=== PATIENT | female | born 1965 | race Caucasian/White ===

== ENCOUNTER 2016-08-21 14:18 | Inpatient (IN) | payer SELFPAY ==
[2016-08-21] VITALS (7 sets, daily range): BP systolic 123–126; BP diastolic 83–85; PULSE 98–113; RESP 18–28; TEMP 97.1–97.7; O2SAT 91–96; Ht 165.1 cm; Wt 124.1 kg
[~2016-08-21] VITALS: Ht 165.1 cm; Wt 124.1 kg
--- OUTSIDE RECORDS SUMMARY | 2016-08-21 14:32 | XMS REPORT | Continuity of Care Document ---
Author Author [facility] Address Unknown Phone Unavailable Allergies Active Description Code Type Severity Reaction Onset Reported/Identified Relationship to Patient Clinical Status Yes doxycycline [id number] Drug Allergy Mild RASH 03/09/2016 Medications Problems Date Dx Coded Attending Type Code Diagnosis Diagnosed By 04/09/2015 Cesar Garner OT B35.6 04/09/2015 Cesar Garner OT B37.2 04/09/2015 Cesar Garner OT E04.1 04/09/2015 Cesar Garner OT E11.9 04/09/2015 Cesar Garner OT E46 04/09/2015 Cesar Garner OT E66.01 04/09/2015 Cesar Garner OT E87.1 04/09/2015 Cesar Garner OT E88.81 04/09/2015 Cesar Garner OT F10.21 04/09/2015 Cesar Garner OT F17.210 04/09/2015 Cesar Garner OT F32.9 04/09/2015 Cesar Garner OT F41.1 04/09/2015 Cesar Garner OT I10 04/09/2015 Cesar Garner OT J18.9 04/09/2015 Cesar Garner OT J84.116 04/09/2015 Cesar Garner OT J90 04/09/2015 Cesar Garner OT K59.00 04/09/2015 Cesar Garner OT K70.31 04/09/2015 Cesar Garner OT R91.8 04/09/2015 Cesar Garner OT Z23 04/09/2015 Cesar Garner OT Z68.42 04/09/2015 Cesar Garner OT Z80.1 04/09/2015 Cesar Garner OT Z80.8 05/21/2015 LynBarbie estradara L OT D68.9 05/21/2015 Riki Zenia L OT E11.9 05/21/2015 Riki Zenia L OT E66.01 05/21/2015 LynObdulioZenia L OT E87.6 05/21/2015 Riki Zenia L OT F10.21 05/21/2015 Riki Zenia L OT F32.9 05/21/2015 Riki Zenia L OT F41.9 05/21/2015 Riki Zenia L OT G47.33 05/21/2015 Obdulio Lynandra L OT I10 05/21/2015 Riki Zenia L OT I42.8 05/21/2015 Riki Zenia L OT I42.9 05/21/2015 Riki Zenia L OT I48.91 05/21/2015 Riki Zenia L OT I48.92 05/21/2015 Riki Zenia L OT I50.23 05/21/2015 Riki Zenia L OT J18.9 05/21/2015 Riki Zenia L OT J44.9 05/21/2015 Riki Zenia L OT J96.01 05/21/2015 Riki Zenia L OT K70.40 05/21/2015 Riki Zenia L OT Z68.41 05/21/2015 Barbie Lynra L OT Z79.01 01/14/2016 Roberta NARAYANAN, Gabby Reyes OT E04.1 01/14/2016 Roberta NARAYANAN, Gabby Reyes OT M54.9 01/14/2016 Gabby Granados MD OT I48.91 01/14/2016 Gabby Granados MD OT E04.1 01/14/2016 Roberta NARAYANAN, Gabby Reyes OT R10.9 01/17/2016 Gabby Granados MD OT E04.1 01/17/2016 Roberta NARAYANAN, Gabby Reyes OT E04.1 01/17/2016 Roberta NARAYANAN, Gabby Reyes OT M54.9 01/17/2016 Roberta NARAYANAN, Gabby D OT M54.9 01/17/2016 Roberta NARAYANAN, Gabby D OT I48.91 01/17/2016 Roberta NARAYANAN, Gabby D OT I48.91 01/17/2016 Roberta NARAYANAN, Gabby D OT E04.1 01/17/2016 Roberta NARAYANAN, Gabby D OT E04.1 01/17/2016 Roberta NARAYANAN, Gabby D OT R10.9 01/17/2016 Roberta NARAYANAN, Gabby D OT R10.9 01/17/2016 Roberta NARAYANAN, Gabby D OT M54.9 01/17/2016 Roberta NARAYANAN, Gabby D OT M54.9 01/17/2016 Roberta NARAYANAN, Gabby D OT R10.9 01/17/2016 Roberta NARAYANAN, Gabby D OT R10.9 01/17/2016 Roberta NARAYANAN, Gabby D OT I48.91 01/17/2016 Roberta NARAYANAN, Gabby D OT E04.1 01/17/2016 Roberta NARAYANAN, Gabby D OT I48.91 01/17/2016 Roberta NARAYANAN, Gabby D OT E04.1 01/18/2016 Roberta NARAYANAN, Gabby D OT E04.1 01/18/2016 Roberta NARAYANAN, Gabby D OT E04.1 01/22/2016 Roberta NARAYANAN, Gabby D OT M54.9 01/22/2016 Roberta NARAYANAN, Gabby D OT M54.9 01/22/2016 Roberta NARAYANAN, Gabby D OT M54.9 01/22/2016 Roberta NARAYANAN, Gabby D OT M54.9 01/22/2016 Roberta NARAYANAN, Gabby D OT M54.9 01/24/2016 Roberta NARAYANAN, Gabby D OT E04.1 01/24/2016 Roberta NARAYANAN, Gabby D OT M54.9 01/25/2016 Roberta NARAYANAN, Gabby D OT I48.91 01/25/2016 Roberta NARAYANAN, Gabby D OT I48.91 01/25/2016 Roberta NARAYANAN, Gabby D OT I48.91 01/25/2016 Roberta NARAYANAN, Gabby D OT I48.91 01/25/2016 Roberta NARAYANAN, Gabby D OT I48.91 01/25/2016 Roberta NARAYANAN, Gabby D OT I10 01/25/2016 Roberta NARAYANAN, Gabby D OT I48.91 01/25/2016 Roberta NARAYANAN, Gabby D OT E04.1 01/25/2016 Roberta NARAYANAN, Gabby D OT M54.9 01/25/2016 Roberta NARAYANAN, Gabby D OT E04.1 01/25/2016 Roberta NARAYANAN, Gabby D OT M54.9 01/26/2016 Roberta NARAYANAN, Gabby D OT E04.1 01/26/2016 Roberta NARAYANAN, Gabby D OT M54.9 01/26/2016 Roberta NARAYANAN, Gabby D OT E04.1 01/26/2016 Roberta NARAYANAN, Gabby D OT M54.9 01/27/2016 Roberta NARAYANAN, Gabby D OT E04.1 01/27/2016 Roberta NARAYANAN, Gabby D OT M54.9 01/27/2016 Roberta NARAYANAN, Gabby D OT E04.1 01/27/2016 Roberta NARAYANAN, Gabby D OT M54.9 01/27/2016 Roberta NARAYANAN, Gabby D OT E04.1 01/27/2016 Roberta NARAYANAN, Gabby D OT M54.9 01/27/2016 Roberta NARAYANAN, Gabby D OT M54.2 01/27/2016 Roberta NARAYANAN, Gabby D OT E04.1 01/27/2016 Roberta NARAYANAN, Gabby D OT E04.1 01/27/2016 Roberta NARAYANAN, Gabby D OT E04.1 01/27/2016 Roberta NARAYANAN, Gabby D OT E04.1 01/27/2016 Roberta NARAYANAN, Gabby D OT E04.1 01/27/2016 Roberta NARAYANAN, Gabby D OT E04.1 01/28/2016 Roberta NARAYANAN, Gabby D OT I10 01/28/2016 Roberta NARAYANAN, Gabby D OT I48.91 01/31/2016 Roberta NARAYANAN, Gabby D OT E04.1 01/31/2016 Roberta NARAYANAN, Gabby D OT M54.9 01/31/2016 Roberta NARAYANAN, Gabby D OT E04.1 01/31/2016 Roberta NARAYANAN, Gabby D OT M54.9 01/31/2016 Roberta NARAYANAN, Gabby D OT E04.1 01/31/2016 Roberta NARAYANAN, Gabby D OT M54.9 01/31/2016 Roberta NARAYANAN, Gabby D OT E04.1 01/31/2016 Roberta NARAYANAN, Gabby D OT M54.9 02/01/2016 Roberta NARAYANAN, Gabby D OT E04.1 02/03/2016 Roberta NARAYANAN, Gabby Reyes OT C04.1 02/03/2016 Roberta NARAYANAN, Gabby Reyes OT D30.00 02/03/2016 Roberta NARAYANAN, Gabby D OT E04.1 02/03/2016 Roberta NARAYANAN, Gabby Reyes OT I10 02/03/2016 Roberta NARAYANAN, Gabby D OT M54.9 03/09/2016 Roberta NARAYANAN, Gabby Reyes OT E04.1 03/09/2016 Roberta NARAYANAN, Gabby Reyes OT R10.9 04/26/2016 Palmer NARAYANAN, Hal Mcdonnell OT E11.9 04/26/2016 Palmer NARAYANAN, Hal Mcdonnell OT E78.2 04/26/2016 Palmer NARAYANAN, Hal Mcdonnell OT I10 04/26/2016 Palmer NARAYANAN, Hal Mcdonnell OT I48.2 04/26/2016 Palmer NARAYANAN, Hal Mcdonnell OT R06.02 04/26/2016 Palmer NARAYANAN, Hal Mcdonnell OT E11.9 04/26/2016 Palmer NARAYANAN, Hal Mcdonnell OT E78.2 04/26/2016 Palmer NARAYANAN, Hal Mcdonnell OT I10 04/26/2016 Palmer NARAYANAN, Hal Mcdonnell OT I48.2 04/26/2016 Palmer NARAYANAN, Hal Mcdonnell OT R06.02 05/02/2016 Palmer NARAYANAN, Hal Mcdonnell OT E11.9 05/02/2016 Palmer NARAYANAN, Hal Mcdonnell OT E78.2 05/02/2016 Palmer NARAYNAAN, Hal Mcdonnell OT I10 05/02/2016 Palmer NARAYANAN, Hal Mcdonnell OT I48.2 05/02/2016 Palmer NARAYANAN, Hal Mcdonnell OT R06.02 05/02/2016 Palmer NARAYANAN, Hal Mcdonnell OT E11.9 05/02/2016 Palmer NARAYANAN, Hal Mcdonnell OT E78.2 05/02/2016 Palmer NARAYANAN, Hal Mcdonnell OT I10 05/02/2016 Palmer NARAYANAN, Hal Mcdonnell OT I48.2 05/02/2016 Palmer NARAYANAN, Hal Mcdonnell OT R06.02 05/02/2016 Palmer NARAYANAN, Hal Mcdonnell OT E11.9 05/02/2016 Palmer NARAYANAN, Hal Mcdonnell OT E78.2 05/02/2016 Palmer NARAYANAN, Hal Mcdonnell OT I10 05/02/2016 Palmer NARAYANAN, Hal Mcdonnell OT I48.2 05/02/2016 Palmer NARAYANAN, Hal Mcdonnell OT R06.02 05/02/2016 Palmer NARAYANAN, Hal Mcdonnell OT E11.9 05/02/2016 Palmer NARAYANAN, Hal Mcdonnell OT E78.2 05/02/2016 Palmer NARAYANAN, Hal Mcdonnell OT I10 05/02/2016 Palmer NARAYANAN, Hal Mcdonnell OT I48.2 05/02/2016 Palmer NARAYANAN, Hal Mcdonnell OT R06.02 05/02/2016 Palmer NARAYANAN, Hal Mcdonnell OT E11.9 05/02/2016 Palmer NARAYANAN, Hal Mcdonnell OT E78.2 05/02/2016 Palmer NARAYANAN, Hal Mcdonnell OT I10 05/02/2016 Palmer NARAYANAN, Hal Mcdonnell OT I48.2 05/02/2016 Palmer NARAYANAN, Hal Mcdonnell OT R06.02 05/02/2016 Palmer NARAYANAN, Hal Mcdonnell OT E11.9 05/02/2016 Palmer NARAYANAN, Hal Mcdonnell OT E78.2 05/02/2016 Palmer NARAYANAN, aHl Mcdonnell OT I10 05/02/2016 Palmer NARAYANAN, Hal Mcdonnell OT I48.2 05/02/2016 Palmer NARAYANAN, Hal Mcdonnell OT R06.02 05/02/2016 Palmer NARAYANAN, Hal Mcdonnell OT E11.9 05/02/2016 Palmer NARAYANAN, Hal Mcdonnell OT E78.2 05/02/2016 Palmer NARAYANAN, Hal Mcdonnell OT I10 05/02/2016 Palmer NARAYANAN, Hal Mcdonnell OT I48.2 05/02/2016 Palmer NARAYANAN, Hal Mcdonnell OT R06.02 05/02/2016 Palmer NARAYANAN, Hal Mcdonnell OT E11.9 05/02/2016 Palmer NARAYANAN, Hal Mcdonnell OT E78.2 05/02/2016 Palmer NARAYANAN, Hal Mcdonnell OT I10 05/02/2016 Palmer NARAYANAN, Hal Sathya OT I48.2 05/02/2016 Palmer NARAYANAN, Hal Mcdonnell OT R06.02 05/02/2016 Palmer NARAYANAN, Hal Mcdonnell OT E11.9 05/02/2016 Palmer NARAYANAN, Hal Mcdonnell OT E78.2 05/02/2016 Palmer NARAYANAN, Hal Mcdonnell OT I10 05/02/2016 Palmer NARAYANAN, Hal Mcdonnell OT I48.2 05/02/2016 Palmer NARAYANAN, Hal Mcdonnell OT R06.02 05/02/2016 Palmer NARAYANAN, Hal Mcdonnell OT E11.9 05/02/2016 Palmer NARAYANAN, Hal Mcdonnell OT E78.2 05/02/2016 Palmer NARAYANAN, Hal Mcdonnell OT I10 05/02/2016 Palmer NARAYANAN, Hal Mcdonnell OT I48.2 05/02/2016 Palmer NARAYANAN, Hal Mcdonnell OT R06.02 05/04/2016 Palmer NARAYANAN, Hal Mcdonnell OT R94.39 05/04/2016 Palmer NARAYANAN, Hal Mcdonnell OT R94.39 05/04/2016 Chandu NARAYANAN, Manuel Huddleston OT R94.39 05/04/2016 Chandu NARAYANAN, Manuel L OT R94.39 05/05/2016 Palmer NARAYANAN, Hal Mcdonnell OT E11.9 05/05/2016 Palmer NARAYANAN, Hal Mcdonnell OT E78.2 05/05/2016 Palmer NARAYANAN, Hal Mcdonnell OT I10 05/05/2016 Palmer NARAYANAN, Hal Mcdonnell OT I48.2 05/05/2016 Palmer NARAYANAN, Hal Mcdonnell OT R06.02 05/17/2016 Chandu NARAYANAN, Manuel Huddleston OT R94.39 05/17/2016 Chandu NARAYANAN, Manuel L OT R94.39 05/23/2016 Chandu NARAYANAN, Manuel L OT R94.39 05/23/2016 Cahndu NARAYANAN, Manuel L OT R94.39 05/23/2016 Chandu NARAYANAN, Manuel L OT R94.39 05/23/2016 Chandu NARAYANAN, Manuel L OT R94.39 05/23/2016 Chandu NARAYANAN, Manuel L OT R94.39 05/23/2016 Chandu NARAYANAN, Manuel L OT E11.9 05/23/2016 Chandu NARAYANAN, Manuel Huddleston OT E66.9 05/23/2016 Chandu NARAYANAN, Manuel Huddleston OT G47.33 05/23/2016 Chandu NARAYANAN, Manuel Huddleston OT I42.9 05/23/2016 Chandu NARAYANAN, Manuel L OT I48.91 05/23/2016 Chandu NARAYANAN, Manuel Huddleston OT I50.9 05/23/2016 Chandu NARAYANAN, Manuel Huddleston OT R94.39 Procedures Results Test Result Range B-TYPE NATRIURETIC PEPTIDE - 03/31/15 04:25 B-TYPE NATRIURETIC PEPTIDE 445 pg/mL < 100 CALCITONIN - 03/31/15 04:25 CALCITONIN RESULT <2 pg/mL <6 AEROBIC ANAER CULTURE W/GRAM - 04/01/15 03:08 Microbiology MAGNESIUM - 04/01/15 11:09 MAGNESIUM 1.7 mg/dL 1.6-2.5 MAGNESIUM - 04/02/15 04:45 MAGNESIUM 1.9 mg/dL 1.6-2.5 THYROGLOBULIN (REFLEXIVE) - 04/02/15 13:20 THYROGLOBULIN AUTO ANTIBODY <0.9 IU/mL 0.0-4.0 THYROGLOBULIN 128.9 ng/mL 1.2-35.0 IMMUNOGLOBULINS G,A,M - 04/02/15 13:20 IMMUNOGLOBULIN G 1990 mg/dL 700-1600 IMMUNOGLOBULIN A 384 mg/dL 68-378 IMMUNOGLOBULIN M 82 mg/dL 60-263 MAGNESIUM - 04/03/15 04:24 MAGNESIUM 1.9 mg/dL 1.6-2.5 PHOSPHORUS - 04/03/15 04:24 PHOSPHORUS 3.6 mg/dL 2.5-4.9 FUNGAL CULTURE - 04/03/15 16:10 Microbiology AEROBIC CULTURE W/GRAM STAIN - 04/03/15 20:49 Microbiology POTASSIUM - 04/04/15 01:18 POTASSIUM 5.3 mmol/L 3.5-5.1 GLUCOSE POINT OF CARE TESTING - 04/04/15 11:57 GLUCOSE POINT OF CARE TESTING 221 mg/dL 70-99 PROT ELECT UR 24H IMMFX RFX - 04/04/15 23:00 PROTEIN, URINE mg/24h 186 mg/24h () INTERPRETATION SEE BELOW () STEPHANIE, URINE, IF INDICATED SEE BELOW () MAGNESIUM - 04/05/15 04:15 MAGNESIUM 2.0 mg/dL 1.6-2.5 BASIC METABOLIC GROUP - 04/05/15 13:48 SODIUM 131 mmol/L 136-145 POTASSIUM 5.0 mmol/L 3.5-5.1 CHLORIDE 100 mmol/L 96-111 CARBON DIOXIDE 26 mmol/L 20-30 ANION GAP 10 6-18 BLOOD UREA NITROGEN 19 mg/dL 6-24 CREATININE 0.62 mg/dL 0.41-0.96 BUN/CREATININE RATIO 31 6-25 GLOMERULAR FILTRATION RATE 107 GLUCOSE 190 mg/dL 70-99 CALCIUM 8.2 mg/dL 8.5-10.1 GLUCOSE POINT OF CARE TESTING - 04/06/15 21:13 GLUCOSE POINT OF CARE TESTING 141 mg/dL 70-99 MAGNESIUM - 04/07/15 05:35 MAGNESIUM 1.9 mg/dL 1.6-2.5 MAGNESIUM - 04/08/15 03:30 MAGNESIUM 1.9 mg/dL 1.6-2.5 DIGOXIN - 05/14/15 08:17 DIGOXIN 0.2 ng/mL 0.9-2.0 PROTIME - 05/14/15 08:17 PROTHROMBIN TIME (PT) > 200.0 sec 9.7- 11.6 INR > 18.0 0.9-1.1 INFLUENZA A AND B ANTIGEN - 05/14/15 13:10 Microbiology BASIC METABOLIC GROUP - 05/15/15 03:49 SODIUM 134 mmol/L 136-145 POTASSIUM 3.2 mmol/L 3.5-5.1 CHLORIDE 99 mmol/L 96-111 CARBON DIOXIDE 30 mmol/L 20-30 ANION GAP 8 6-18 BLOOD UREA NITROGEN 13 mg/dL 6-24 CREATININE 0.31 mg/dL 0.41-0.96 BUN/CREATININE RATIO 42 6-25 GLOMERULAR FILTRATION RATE 133 GLUCOSE 176 mg/dL 70-99 CALCIUM 8.2 mg/dL 8.5-10.1 PROTIME - 05/15/15 03:49 PROTHROMBIN TIME (PT) 20.0 sec 9.7-11.6 INR 2.1 0.9-1.1 POTASSIUM - 05/15/15 16:49 POTASSIUM 4.1 mmol/L 3.5-5.1 TROPONIN I - 05/16/15 03:53 TROPONIN I < 0.010 ng/mL <0.030 MAGNESIUM - 05/17/15 03:55 MAGNESIUM 1.8 mg/dL 1.6-2.5 POTASSIUM - 05/17/15 19:31 POTASSIUM 3.9 mmol/L 3.5-5.1 CBC Diff reflex to Manual Diff - 05/18/15 04:15 WBC 3.6 1000/uL 3.7-11.1 RBC 5.67 mil/uL 4.11-5.63 HEMOGLOBIN 13.9 g/dl 11.9-16.3 HEMATOCRIT 44.8 % 37.0-47.7 PLATELET COUNT 176 1000/uL 150-400 MCV 79 fl 81-97 MCH 24.5 pg 26.7-33.1 MCHC 31.0 g/dL 31.1-35.3 RDW 19.8 % 12.3-15.9 MPV 9.4 fl ABSOLUTE NEUTROPHIL 1.7 1000/uL 1.7-7.1 ABSOLUTE LYMPHOCYTE 1.5 1000/uL 1.1-3.7 ABSOLUTE MONOCYTE 0.3 1000/uL 0.3-0.9 ABSOLUTE EOSINOPHIL 0.1 1000/uL 0.0-0.5 ABSOLUTE BASOPHIL 0.0 1000/uL 0.0-0.1 NEUTROPHILS 48 % LYMPHOCYTE 41 % MONOCYTE 9 % EOSINOPHIL 2 % BASOPHIL 1 % VERIFY DIFF Auto diff B-TYPE NATRIURETIC PEPTIDE - 05/18/15 04:15 B-TYPE NATRIURETIC PEPTIDE 335 pg/mL < 100 MAGNESIUM - 05/19/15 04:35 MAGNESIUM 2.1 mg/dL 1.6-2.5 B-TYPE NATRIURETIC PEPTIDE - 05/19/15 04:35 B-TYPE NATRIURETIC PEPTIDE 363 pg/mL < 100 MAGNESIUM - 05/20/15 05:10 MAGNESIUM 1.9 mg/dL 1.6-2.5 PROTIME - 05/21/15 04:37 PROTHROMBIN TIME (PT) 24.3 sec 9.7-11.6 INR 2.6 0.9-1.1 CALCITONIN - 01/31/16 09:37 CALCITONIN RESULT <2 pg/mL <6 URINALYSIS RFLX MICRO CULT UA - 03/09/16 22:38 COLLECTION TYPE CLEAN CATCH APPEARANCE Clear CLEAR COLOR Yellow PH, URINE 5.0 5.0-8.0 SPECIFIC GRAVITY, URINE 1.025 <1.030 GLUCOSE, URINE Negative mg/dL Negative BLOOD, URINE Small Negative KETONES, URINE Negative mg/dL Negative PROTEIN, UA QUALITATIVE Negative mg/dL Negative BILIRUBIN, URINE Negative Negative UROBILINOGEN, URINE 2.0 mg/dL <2.0 LEUKOCYTE ESTERASE, URINE Negative Negative NITRITE, URINE Negative Negative WBC, URINE 3-5 /hpf 0-5 RBC, URINE 0-2 /hpf 0-5 BACTERIA, URINE None seen /hpf None seen SQUAMOUS CELLS 21-30 /lpf 0-5 MUCUS THREADS, URINE 1+ /lpf ADD URINE CULTURE NO D-DIMER - 03/09/16 20:40 D-DIMER 0.29 mg/L 0.00-0.49 HGB A1C - 04/24/16 11:56 % HGB A1C 8.2 % 4.0-5.6 ESTIMATED AVERAGE GLUCOSE 189 mg/dL BASIC METABOLIC GROUP - 05/23/16 07:25 SODIUM 136 mmol/L 136-145 POTASSIUM 3.9 mmol/L 3.5-5.1 CHLORIDE 106 mmol/L 96-111 CARBON DIOXIDE 23 mmol/L 20-30 ANION GAP 11 6-18 BLOOD UREA NITROGEN 16 mg/dL 6-24 CREATININE 0.43 mg/dL 0.41-0.96 BUN/CREATININE RATIO 37 6-25 GLOMERULAR FILTRATION RATE 119 GLUCOSE 191 mg/dL 70-99 CALCIUM 8.9 mg/dL 8.3-10.1 Encounters ACCT No. Visit Date/Time Discharge Status Pt. Type Provider Facility Loc./Unit Complaint [id number] 05/23/2016 06:12:00 2015 12:10:00 DIS Outpatient Chandu NARAYANAN, Manuel Huddleston KCCATH ABNORMAL RESULT OF OTHER CARDIOVASCULAR FUNCTION [id number] 05/02/2016 10:25:00 2015 16:24:00 DIS Outpatient Palmer NARAYANAN, Hal Mcdonnell KCNUC TYPE 2 DIABETES MELLITUS WITHOUT COMPLICATIONS [id number] 03/09/2016 19:22:00 2015 23:03:00 DIS Emergency Renetta NARAYANAN, Sathya Crow KCMONIKA NECK PAIN [id number] 01/27/2016 13:25:00 2015 15:57:00 DIS Outpatient Gabby Granados MDUS NONTOXIC SINGLE THYROID NODULE/L THYROID [id number] 01/25/2016 08:21:00 2015 11:36:00 DIS Outpatient Gabby Granados MDUS UNSPECIFIED ATRIAL FIBRILLATION [id number] 05/14/2015 11:52:00 2014 17:51:00 DIS Inpatient Zenia Lyn KC2B DIFF BREATHING [id number] 03/30/2015 12:52:00 2014 15:45:00 DIS Inpatient Cesar Garner KC2B LT THYROIDMESS PLEURAL EFFUSION ACITIS [id number] 08/17/2016 08:47:11 Document Registration [id number] 07/03/2016 10:10:00 PEN Preadmit Palmer NARAYANAN, Hal Mcdonnell [facility] [id number] 05/19/2016 08:39:00 PEN Preadmit Palmer NARAYANAN, Hal Mcdonnell [facility] [id number] 04/24/2016 10:18:00 ACT Outpatient Palmer NARAYANAN, Hal Mcdonnell [facility] [id number] 04/13/2016 10:28:00 ACT Outpatient Roberta NARAYANAN, Gabby Reyes [facility] [id number] 02/15/2016 09:30:00 PEN Preadmit Roberta NARAYANAN, Gabby NICHOLSUC UNSPECIFIED ABDOMINAL PAIN [id number] 01/31/2016 07:02:00 ACT Outpatient Roberta NARAYANAN, Gabby OWENI DORSALGIA,NONTOXIC SINGLE THYROID NODULE [id number] 01/22/2016 08:35:00 ACT Outpatient Roberta NARAYANAN, Gabby OWENI DORSALGIA, UNSPECIFIED [id number] 01/20/2016 08:00:00 PEN Preadmit Roberta NARAYANAN, Gabby QUEENCT NONTOXIC SINGLE THYROID NODULE [id number] 01/13/2016 16:31:00 ACT Outpatient Roberta NARAYANAN, Gabby Reyes [facility] [id number] 06/15/2015 14:15:00 PEN Preadmit Chandu NARAYANAN, Manuel Huddleston [facility]
[2016-08-21] MEDS ORDERED: CARV12.52 PO (14:48)
[2016-08-21] MEDS ORDERED: METF500T4 PO (14:48)
[2016-08-21] MEDS ORDERED: LISI-621 PO (14:48)
[2016-08-21] MEDS ORDERED: WARF3TAB6 PO (14:48)
[2016-08-21] MEDS ORDERED: DIGO125T88 PO (14:48)
[2016-08-21] MEDS ORDERED: HYDR-4246 PO (14:48)
[2016-08-21] MEDS ORDERED: NITR0.4T39 SL (14:48)
[2016-08-21] MEDS: NORMAL SALINE 1,000 ML IV SCH (15:02)
[2016-08-21] MEDS ORDERED: ACETAMINOPHEN 325 MG TABLET PO PRN (15:15)
[2016-08-21] MEDS ORDERED: ONDANSETRON 4mg/2ml INJECTION IV PRN (15:15)
[2016-08-21] MEDS ORDERED: MILK OF MAGNESIA 30 ML SUSP PO PRN (15:15)
[2016-08-21] MEDS ORDERED: NITROGLYCERIN 0.4 MG SUBLINGUAL TABLET SL PRN (15:30)
[2016-08-21 15:58] LABS: BASOPHILS % (AUTO) 0.3 % (0-2); EOSINOPHILS # (AUTO) 0.1 T/MM3 (0-0.5); EOSINOPHILS % (AUTO) 1.4 % (0-4); HCT - HEMATOCRIT 45.9 % (36-46); HGB - HEMOGLOBIN 15.4 GM/DL (12-16); IMMATURE GRANULOCYTE # (AUTO) 0.01 T/MM3 (0.00-0.03); IMMATURE GRANULOCYTE % (AUTO) 0.1 % (0.0-0.5); LYMPHOCYTES # (AUTO) 2.7 T/MM3 (1-4.8); LYMPHOCYTES % (AUTO) 27.5 % (23-45); MEAN CORPUSCULAR HGB 29.8 UUG (26-34); MEAN CORPUSCULAR HGB CONC(MCHC 33.6 GM/DL (31-37); MEAN PLATELET VOLUME 12.2 UM3 (9.4-12.4); MONOCYTES # (AUTO) 0.5 T/MM3 (0-0.8); MONOCYTES % (AUTO) 5.2 % (0-9.0); NEUTROPHILS #(AUTO)-ABSOLUTE 6.4 T/MM3 (1.8-7.7); NEUTROPHILS % (AUTO) 65.5 % (33-66); RED BLOOD COUNT 5.16 M/MM3 (4.00-5.20); WBC - WHITE BLOOD COUNT 9.7 T/MM3 (4.5-11.0)
[2016-08-21 16:09] LABS: ALBUMIN 3.9 G/DL (3.5-5.0); ALBUMIN/GLOBULIN RATIO 1.1 RATIO (1.1-2.2); ALKALINE PHOSPHATASE 228 U/L (38-126); ALT (SGPT) 47 U/L (9-52); ANION GAP 14 MEQ/L (5-15); AST (SGOT) 36 U/L (14-36); BUN/CREATININE RATIO 24 RATIO (6-26); CALCIUM 9.4 MG/DL (8.4-10.2); CHLORIDE 107 MEQ/L (98-107); CO2 - CARBON DIOXIDE 21 MEQ/L (22-30); CREATININE 0.7 MG/DL (0.7-1.2); GLOMERULAR FILTRATION RATE 89; GLUCOSE 271 MG/DL (65-110); POTASSIUM 4.6 MEQ/L (3.6-5); SODIUM 142 MEQ/L (134-144); TOTAL PROTEIN 7.5 G/DL (6.3-8.2)
--- NOTE | 2016-08-21 16:38 | HPPDOC ---
HPI - Adult Date DATE: 08/21/16 TIME: 15:57 General Chief Complaint: panic History of Present Illness This is a 51-year-old female direct admitted from the office of Dr. Sainz, for symptomatic hyperthyroidism. She has been having atrial fibrillation with palpitation on and off for several weeks. No overt chest pain in a few days now. She feels jittery panicky and tearful. She thinks she's had some swelling of her feet as well. She believes that she has been taking her medications appropriately. Dr. Sainz has given the information that she has a thyroid mass that shows multi-nodular lesions with hyper vascularity today. She has a nonexistent TSH the free T4 within normal limits and a high free T3. She has been asymptomatic atrial fibrillation and ejection fraction in the 30s. In addition to this likely thyrotoxicosis there is some questionable lung mass and he is requesting CT. He has asked for Dr. Noguera in surgery and for Dr. Lehman in endocrinology to consider consultation Past Medical History Past Medical History Patient's Medical History: (1) Thyroid nodule, hot (2) Atrial fibrillation with rapid ventricular response Surgical History Patient's Surgical History: Thyroglossal duct cyst removal tonsils hysterectomy Current Medications Home Meds Reported Medications Hydrocodone/Acetaminophen ([place] 5-325 Tablet) 5-325 Tablet, 1 TAB PO Q4HPRN, TAB 08/21/16 Nitroglycerin (Nitroglycerin) 0.4 Mg Tab.subl, 0.4 MG SL Y for CHEST TIGHTNESS, TAB 08/21/16 Lisinopril (Lisinopril) 20 Mg Tablet, 20 MG PO DAILY for HYPERTENSION, TAB 08/21/16 Carvedilol (Carvedilol) 12.5 Mg Tablet, 1 TAB PO BIDWM, TAB BEST WITH FOOD. 08/21/16 Digoxin (Digoxin) 125 Mcg Tablet, 1 TAB PO DAILY, TAB 08/21/16 Warfarin Sodium (Warfarin Sodium) 3 Mg Tablet, 1 TAB PO DAILY, #30 TAB 5 Refills 08/21/16 Metformin HCl (Metformin HCl) 500 Mg Tablet, 500 MG PO BIDWM, TAB Take one tablet, by mouth, 2 times a day with Meals. 08/21/16 Family History Family History: Mother had diabetes hypertension and of stroke father had hypertension and of lung cancer Social History Smoking Status: Former smoker Substance Use Type: does not use Alcohol Intake: former alcohol drinker Last Drink: unknown Marital Status: Advance Directives: Yes DPOA for Healthcare Only (Dawn Springer) Review of Systems Constitutional: REPORTS: difficulty falling asleep ENMT Sinuses: FOUND: congestion Mouth/Throat: REPORTS: change in swallowing, DENIES: sore throat Cardiovascular dyspnea on exertion, DENIES: chest pain Rhythm/Rate: palpitations Pulmonary Respiratory: DENIES: cough, sputum GI Lower Abdomen: DENIES: blood in stool, melena Integumentary Skin: DENIES: infections, lesion, ulcers Physical Exam General General Nourishment: obese General Body Habitus: disheveled Vital Signs Vital Signs Date Time Temp Pulse Resp B/P Pulse Ox O2 Delivery O2 Flow Rate FiO2 08/21/16 14:54 97.1 113 22 126/85 96 Room Air Height (Feet): 5 Height (Inches): 5.00 Eyes Brief: FOUND: EOMI, PERRL, NOT FOUND: scleral icterus Neck Brief: FOUND: thyromegaly, NOT FOUND: JVD, adenopathy, nuchal rigidity Comments Thyroid fullness noted slightly more significant on left than right Respiratory Brief: FOUND: clear all bee, equal bilaterally, NOT FOUND: rales , wheezes Cardiovascular (brief) Cardiac Brief: FOUND: regular rhythm Comments Irregularly irregular tachycardic proximately 120s Abdomen (brief) Abdominal Brief: FOUND: BS normo active x4, soft Integumentary (brief) Integumentary Brief: FOUND: dry, warm Comments Noted flush may be recent day in the sun Neurologic RN Documented GCS Eye Opening: Verbal: Motor: Total: Psychiatric (brief) FOUND: alert, oriented Comments Anxious and hypervigilant Psychiatric Psychiatric General: FOUND: affect, crying, mood Attitude: FOUND: cooperative Laboratory I've ordered a CMP CBC INR PT free T4 free T3 and TSH. These are pending Laboratory Tests Test 08/21/16 15:48 EKG Ordering an EKG now Radiology Radiology noting multiple nodules on ultrasound thyroid I have ordered CT of the chest without contrast as per Dr. Sainz's request Assessment & Plan Problems: (1) Thyrotoxicosis Status: Acute Assessment & Plan: Patient is on 25 mg of carvedilol b.i.d. Do not see methimazole will have to verify what dosing she has been at. (2) Atrial fibrillation with rapid ventricular response Status: Acute Assessment & Plan: She is on warfarin and we will likely have to hold this for any likely surgery. INR is pending. We need better rate control and some symptomatic relief (3) Hypertension Qualifiers: Hypertension type: secondary to endocrine disorders Qualified Codes: I15.2 - Hypertension secondary to endocrine disorders (4) Thyroid nodule Assessment & Plan: Would appreciate Dr. Noguera's input on surgical management this mass. I'm uncertain if Dr. Lehman already knows this patient through Dr. Sainz. Assessment This patient has significant clinical signs thyrotoxicosis. Will resume beta raymond and likely double the carvedilol at least for now. Code Status Full Code Hospital Course Summary Disclaimer The hospital course summary below is not to be considered part of the above Progress Note. SAL KENDALL MD Aug 21, 2016 16:03
--- NOTE | 2016-08-21 16:48 | DI ---
Indication: ITS.REASON: Thyroid mass known, ? lung masses PROCEDURE: CT CHEST W/O CONTRAST: Encounter: Initial Comparison: None Technique: Axial CT images were performed through the chest without intravenous contrast. Coronal and sagittal two-dimensional reformats. Automated Exposure Control and Iterative Reconstruction dose reducing techniques were utilized. Findings: Lung window review demonstrates scattered solid nodular or semisolid foci in the right lung; the largest peripherally is pleural-based measuring 14.8 x 8.6 mm in the anterior aspect of the right upper lobe on axial image 30 of 86. Additional smaller nodular foci are seen, including a right upper lobe prehilar nodule of 5.6 mm on axial image 32 of 86. Additional somewhat more linear fibrotic-appearing regions are seen. There is mild mediastinal lymphadenopathy. Precarinal lymph node short axis dimension of 15.2 mm and several small left prevascular lymph nodes are seen. Subcarinal lymph node short axis dimension of 19.6 mm. No definite hilar contour abnormality. Heart and pericardium demonstrates no pericardial effusion. Mild coronary artery calcification. Minimal aortic atherosclerosis. Significant enlargement of the left thyroidal lobe. Lack of contrast limits its assessment. Pleural spaces are clear. Upper abdomen demonstrates no adrenal mass effect. Bone window review demonstrates degenerative spondylitis but no aggressive abnormality. Impression: 1. Multiple nodular foci in the right lung. If there are any prior studies for direct comparison, this would be of benefit. In the absence of such, follow-up in three months recommended if a high risk patient. 2. Mild mediastinal lymphadenopathy. 3. Thyromegaly in regards to the left thyroidal lobe. This could be on the basis of mass effect or diffuse asymmetric enlargement. 4. Coronary artery disease and aortic atherosclerosis. .
[2016-08-21 16:52] LABS: INR 1.28 (0.76-1.04); PTT 29.3 SEC (24-36)
[2016-08-21] MEDS: CARVEDILOL 12.5 MG TABLET PO SCH (17:20)
[2016-08-21] MEDS: LORAZEPAM 2 MG/ML INJECTION IV PRN (17:24)
--- NOTE | 2016-08-21 18:19 | CONSF ---
DATE OF CONSULT 08/21/2016 REASON FOR CONSULTATION Thyrotoxicosis. Mrs. Springer is a 51-year-old female admitted directly from the office of Dr. Sainz for uncontrolled atrial fibrillation and heart failure with an ejection fraction around 30%. She has a history of atrial fibrillation for about a year and a half and has been treated off and on with various beta-blockers including atenolol, metoprolol and most recently carvedilol 12.5 mg b.i.d.. She is also anticoagulated. For the past two weeks her palpitations have worsened as her pedal edema has also gotten worse and she has had more dizziness. She has a history of hyperthyroidism going back to at least 09/24/2014 when her TSH was 0.010. It remained at this undetectable level again on 12/10/2014 and 03/30/2015 at which time her free T4 was elevated at 1.77. On 01/31/2016 the TSH was 0.03 with free T4 of 1.72. Most recently TSH on 08/09/2016 was less than 0.02 with free T4 2.01 and free T3 quite elevated at 9.50. Her thyrotropin receptor antibody was undetectable. A left thyroid mass has also been followed since 03/29/2015 when it measured 3.6 x 2.4 cm. On 03/31/2015 at the time of fine- needle aspiration biopsy it was measured at 4.5 x 3.1 x 2.6 cm. The biopsy showed atypia of uncertain significance. On 01/27/2016 it measured 3.1 x 4.8 x 3.2 cm and repeat fine-needle aspiration biopsy showed an adenomatous nodule with cystic degeneration and no malignant cells were seen. The patient has noted palpitations, dyspnea, heat intolerance, frequent bowel movements, anxiety, tremor and some tightness in her neck. She reports significant hair loss and fatigue. She has had trouble concentrating with short-term memory as well. ALLERGIES None known. PAST MEDICAL HISTORY Remarkable for type 2 diabetes mellitus treated with metformin which is currently being held. Atrial fibrillation. Congestive heart failure. History of elevated bilirubin. Lung mass with benign biopsies. Left thyroid mass. Status post removal of thyroglossal duct cyst. Tonsillectomy. . Hysterectomy. FAMILY HISTORY Negative for thyroid cancer. Positive for diabetes, hypertension, stroke and lung cancer. SOCIAL HISTORY Remarkable for heavy ingestion of alcohol in the past but not currently. She also is a former smoker. REVIEW OF SYSTEMS Positive for mild dysphagia. Negative for cough or sputum. Otherwise negative except as mentioned in History of Present Illness. PHYSICAL EXAM VITAL SIGNS: Temperature 97.1, blood pressure 126/85, pulse 113, respirations 22 at the time of admission. Height 65 inches, weight 126 kg. GENERAL: Well-developed, obese, anxious female sitting up in bed. EYES: PERRL. NECK: Enlarged left lobe lying quite low in the neck, partly substernal but rising with swallowing. There is no tenderness or bruit. LUNGS: Clear. HEART: Irregular rapid rhythm. ABDOMEN: Normal bowel sounds. EXTREMITIES: Trace edema. SKIN: Warm and dry. NEUROLOGIC: Grossly normal. PSYCHIATRIC: Alert, oriented. Anxious about being in the hospital as this was unexpected today. She comes close to crying at times. LABORATORY Glucose 271. TSH less than 0.02. Free T4 and T3 are pending. Bilirubin 1.2. ALT 47. ASSESSMENT 1. Thyrotoxicosis. With the rapid atrial fibrillation and history of low ejection fraction, the patient should be started immediately on PTU to obtain rapid blocking of iodine uptake as well as peripheral conversion of T4 to T3 to bring her T3 toxicosis under control as quickly as possible. Diagnostic testing to determine her cause of hyperthyroidism via radioactive iodine uptake and scan will need to be postponed to a later time. Her beta raymond should be dosed at a level to control her rate until her thyroid hormone level falls enough that it may be able to be tapered, although it will probably be continued to help with her outcome of heart failure until the atrial fibrillation resolves. Longer-term the patient can later be switched from PTU to methimazole which is slightly safer. 2. Large thyroid nodule. The problem with a nodule greater than 4 cm in size is that the biopsies that have been taken may have missed potential malignancy within that size nodule. It should therefore be removed as soon as reasonably safe after controlling her atrial fibrillation through better control of her hyperthyroidism. 3. Type 2 diabetes mellitus with hyperglycemia. She will need to remain off of metformin since this is contraindicated in congestive heart failure that requires pharmacologic intervention. Since her renal function is good with a creatinine of 0.7 the use of a short-acting sulfonylurea is possible. 4. Atrial fibrillation. The patient's heart rate has dropped below 100 as she remains a little longer in the hospital. I would prefer to not raise her dose of carvedilol higher unless it is really necessary as she does have dizziness which may be exacerbated. 5. Hypertension, fair control. 6. Congestive heart failure. This should improve as her atrial fibrillation is brought under better control. 7. Lung mass apparently benign from past biopsies. I will defer this to Dr. Sainz. RECOMMENDATIONS Start PTU 100 mg q.6h. and glimepiride 2 mg q.a.m. with first dose for supper now. Monitor glucose fasting and two hours postprandially. We will follow her heart rate and rhythm closely over the next 24 hours. I have spoken with the patient regarding ultimately having the left thyroid nodule removed because of its large size and uncertainty even after two negative biopsies whether it may harbor a malignancy. Thank you very much for asking me to assist in the care of this nice lady. I will follow her along with you during her hospital stay. VALENTÍN
[2016-08-21] MEDS: PROPYLTHIOURACIL 50 MG TABLET PO SCH ×2 (18:25→23:14)
[2016-08-21] MEDS: GLIMEPIRIDE 2 MG TABLET PO SCH (18:25)
[2016-08-21] MEDS: HYDROCODONE/APAP 5 mg/325 mg TABLET PO PRN (19:55)
[2016-08-21] MEDS: DOCUSATE SODIUM 100 MG CAPSULE PO SCH (19:55)
[2016-08-22] VITALS (8 sets, daily range): BP systolic 109–128; BP diastolic 65–84; PULSE 93–113; RESP 20–26; TEMP 96.2–97.8; O2SAT 93–96
[2016-08-22] MEDS: LORAZEPAM 2 MG/ML INJECTION IV PRN ×3 (01:24→19:53)
[2016-08-22] MEDS: NORMAL SALINE 1,000 ML IV SCH (02:13)
[2016-08-22] MEDS: PROPYLTHIOURACIL 50 MG TABLET PO SCH ×4 (06:03→23:47)
[2016-08-22] MEDS: DIGOXIN 125 MCG TABLET PO SCH (08:15)
[2016-08-22] MEDS: GLIMEPIRIDE 2 MG TABLET PO SCH (08:15)
[2016-08-22] MEDS: DOCUSATE SODIUM 100 MG CAPSULE PO SCH ×2 (08:15→21:46)
[2016-08-22] MEDS: LISINOPRIL 20 MG TABLET PO SCH (08:15)
[2016-08-22] MEDS: CARVEDILOL 12.5 MG TABLET PO SCH ×2 (08:16→18:14)
--- NOTE | 2016-08-22 08:32 | PNPDOC ---
Subjective Date DATE: 08/22/16 TIME: 08:21 Subjective Feels a little better, but still short of breath. Also still feels a bit dizzy. Started PTU and glimepiride without adverse effects. Has IV saline infusing at 100 ml/hr. Objective Vital Signs Vital Signs Vital Signs 08/21/16 08/21/16 08/21/16 08/22/16 21:21 23:27 23:46 02:05 Temp 97.7 Pulse 102 101 106 96 Resp 28 B/P 123/83 Pulse Ox 91 92 92 O2 Delivery Spontaneous/Timed Bi-pap Spontaneous/Timed Spontaneous/Timed FiO2 21 08/22/16 08/22/16 08/22/16 08/22/16 03:36 03:53 05:15 07:31 Temp 96.2 Pulse 90 92 109 Resp 23 24 B/P 115/84 Pulse Ox 95 O2 Delivery Bi-pap Spontaneous/Timed Spontaneous/Timed Room Air FiO2 08/22/16 08:15 Pulse 111 Height (Feet): 5 Height (Inches): 5.00 Weight (Kilograms): 126.500 General General Nourishment: Well Nourished, Well Developed, Obese, Adult Eyes (Brief) Eyes Brief: FOUND: PERRL Neck (Brief) Neck Brief: FOUND: thyromegaly, NOT FOUND: carotid bruits, tenderness Respiratory (Brief) Respiratory Brief: FOUND clear all bee, FOUND equal bilaterally Cardiovascular (Brief) Cardiac Brief: FOUND: pedal edema, regular rate, NOT FOUND: regular rhythm Abdomen (Brief) Abdominal Brief: FOUND: BS normo active x4 Integumentary(Brief) Integumentary Brief: FOUND: dry, warm Neurologic(Brief) Neurological Brief: FOUND: tremor Comments Mild tremor. Psychiatric(Brief) Psychiatric Brief: FOUND: alert, attentive, normal affect, oriented Laboratory Laboratory Laboratory Tests Test 08/21/16 15:48 08/21/16 16:38 08/21/16 17:38 08/21/16 21:04 Anion Gap 14MEQ/L (5-15) BUN/Creatinine Ratio 24RATIO (6-26) Blood Urea Nitrogen 17.0MG/DL (7-17) Calcium Level 9.4MG/DL (8.4-10.2) Calculated Osmolality 285MOSM/KG (261-280) Carbon Dioxide Level 21MEQ/L (22-30) Chloride Level 107MEQ/L (98-107) Creatinine 0.7MG/DL (0.7-1.2) Free Triiodothyronine Pending Glomerular Filtration Rate Calc 89 Glucose Level 271MG/DL (65-110) Potassium Level 4.6MEQ/L (3.6-5) Sodium Level 142MEQ/L (134-144) Thyroid Stimulating Hormone (TSH) < 0.02MIU/L (0.47-4.68) Free Thyroxine Pending Glucometer 227mg/dL (65-110) 248mg/dL (65-110) Laboratory Tests Test 08/21/16 15:48 08/21/16 16:09 08/21/16 16:38 08/21/16 17:38 White Blood Count 9.7T/MM3 (4.5-11.0) Red Blood Count 5.16M/MM3 (4.00-5.20) Hemoglobin 15.4GM/DL (12-16) Hematocrit 45.9% (36-46) Mean Corpuscular Volume 89.0UM3 (80-100) Mean Corpuscular Hemoglobin 29.8UUG (26-34) Mean Corpuscular Hemoglobin Concent 33.6GM/DL (31-37) RDW Standard Deviation 41.5FL (36.9-50.2) Platelet Count 156T/MM3 (130-400) Mean Platelet Volume 12.2UM3 (9.4-12.4) Immature Granulocyte % (Auto) 0.1% (0.0-0.5) Neutrophils (%) (Auto) 65.5% (33-66) Lymphocytes (%) (Auto) 27.5% (23-45) Monocytes (%) (Auto) 5.2% (0-9.0) Eosinophils (%) (Auto) 1.4% (0-4) Basophils (%) (Auto) 0.3% (0-2) Absolute Immature Granulocyte (auto 0.01T/MM3 (0.00-0.03) Absolute Neutrophils (auto) 6.4T/MM3 (1.8-7.7) Absolute Lymphocytes (auto) 2.7T/MM3 (1-4.8) Absolute Monocytes (auto) 0.5T/MM3 (0-0.8) Absolute Eosinophils (auto) 0.1T/MM3 (0-0.5) Absolute Basophils (auto) 0.0T/MM3 (0-0.2) Turbidity < 20 (0-20) Sodium Level 142MEQ/L (134-144) Potassium Level 4.6MEQ/L (3.6-5) Chloride Level 107MEQ/L (98-107) Carbon Dioxide Level 21MEQ/L (22-30) Anion Gap 14MEQ/L (5-15) Blood Urea Nitrogen 17.0MG/DL (7-17) Creatinine 0.7MG/DL (0.7-1.2) Glomerular Filtration Rate Calc 89 BUN/Creatinine Ratio 24RATIO (6-26) Glucose Level 271MG/DL (65-110) Calculated Osmolality 285MOSM/KG (261-280) Calcium Level 9.4MG/DL (8.4-10.2) Total Bilirubin 1.20MG/DL (0.20-1.30) Conjugated Bilirubin 0.00MG/DL (0.00-0.30) Unconjugated Bilirubin 0.60MG/DL (0.00-1.10) Icterus Index < 2 (0-7) Aspartate Amino Transf (AST/SGOT) 36U/L (14-36) Alanine Aminotransferase (ALT/SGPT) 47U/L (9-52) Alkaline Phosphatase 228U/L (38-126) Total Protein 7.5G/DL (6.3-8.2) Albumin 3.9G/DL (3.5-5.0) Globulin 3.6G/DL (2.4-3.6) Albumin/Globulin Ratio 1.1RATIO (1.1-2.2) Thyroid Stimulating Hormone (TSH) < 0.02MIU/L (0.47-4.68) Chemistry Specimen Hemolysis < 15 (0-25) Prothromb Time International Ratio 1.28 (0.76-1.04) Activated Partial Thromboplast Time 29.3SEC (24-36) Glucometer 227mg/dL (65-110) Test 08/21/16 21:04 Glucometer 248mg/dL (65-110) Assessment & Plan Problems: (1) Diabetes type 2, uncontrolled Status: Chronic Qualifiers: Diabetes mellitus complication status: with hyperglycemia Assessment & Plan: Will try to control with oral agent, but may need insulin. (2) Thyroid nodule Status: Chronic Assessment & Plan: Will need excision when heart condition stabilizes. (3) Atrial fibrillation with rapid ventricular response Status: Acute Assessment & Plan: May have better chance at converting to sinus rhythm when rendered euthyroid. (4) Thyrotoxicosis Status: Chronic Qualifiers: Thyrotoxicosis type: unspecified thyrotoxicosis type Assessment & Plan: Causing low ejection fraction due to fibrillation. Must avoid positive fluid balance. Will stop IV saline infusion. PINKY BAUGH MD Aug 22, 2016 08:24
[2016-08-22] MEDS ORDERED: WARFARIN 3 MG TABLET PO SCH (12:00)
[2016-08-22] MEDS ORDERED: GLIMEPIRIDE 4 MG TABLET PO SCH (13:30)
[2016-08-22] MEDS: FUROSEMIDE 40 MG/4 ML INJECTION IV SCH (14:19)
--- NOTE | 2016-08-22 14:24 | CONSPD ---
BLOSSOM BUNCH [employer] 08/22/16 1257: Consultation Info Date DATE: 08/22/16 TIME: 12:45 Date of Consultation: Aug 22, 2016 Attending Physician: Sal George MD Reason for Consultation: AFib, may have surgery in ~10 days HPI - Adult Date DATE: 08/22/16 TIME: 12:45 General Date of Admission Date of Admission: Aug 21, 2016 at 14:18 Chief Complaint: panic History of Present Illness Anne is a 51-year-old female of Dr. Sainz's who has a history of Atrial fibrillation, CHF with decreased EF, hyperbilirubinemia and thyrotoxicosis who was direct admitted from the office of Dr. Sainz, for symptomatic hyperthyroidism. She has been having atrial fibrillation with palpitations on and off for several weeks. No overt chest pain in a few days now. She feels jittery, panicky and tearful. She thinks she's had some swelling of her feet as well. She believes that she has been taking her medications appropriately. She has a thyroid mass that shows multi-nodular lesions with hyper vascularity today, history of lung mass with biopsies not showing malignancy. She has a nonexistent TSH the free T4 within normal limits and a high free T3. She has been asymptomatic atrial fibrillation and ejection fraction in the 30s.Dr. Noguera in surgery, Dr. Lehman in endocrinology and Dr. Laureano in Cardiology have been consulted. She is seen today in her room, she is anxious and states she is very overwhelmed by the number of people to come and see her today. She states she has been having trouble getting anyone where she lives doing anything about her thyroid. She reports chest pain, right worse than left, which is worse with exertion. She also reports SOA with activity which is about the same as usual. She denies fever, chills, nausea, dizziness or lightheadedness. Past Medical History Past Medical History Metabolic: diabetes, hypertension ENMT: DENIES: vision problems Cardiac: A-fib, CHF, angina, echocardiogram, DENIES: CAD, CT, PSVT, aortic aneurysm, aortic dissection Respiratory: DENIES: COPD, asthma, pneumonia GI: GERD Neurological: DENIES: CVA Psychological: anxiety, DENIES: depression Surgical History General: neck (fine needle aspiration of thyroid 03/2015), tonsils Reproductive/: , hysterectomy Current Medications Home Meds Active Scripts Rivaroxaban (Xarelto) 20 Mg Tablet, 20 MG PO WS for Afib-blood thinning, #30 TAB Prov:CHUYITA SIMMS MD 08/25/16 Lorazepam (Lorazepam) 0.5 Mg Tablet, 0.5 MG PO Q4HR Y for ANXIETY, #30 TAB Prov:CHUYITA SIMMS MD 08/25/16 Sitagliptin Phosphate (Januvia) 100 Mg Tablet, 100 MG PO ACB for Diabetes , #30 TAB Prov:CHUYITA SIMMS MD 08/25/16 Propylthiouracil (Propylthiouracil) 50 Mg Tablet, 100 MG PO Q6H for Hyperthyroidism, #120 TAB Prov:CHUYITA SIMMS MD 08/25/16 Glimepiride (Amaryl) 4 Mg Tablet, 4 MG PO BIDBS for Diabetes, #60 TAB Prov:CHUYITA SIMMS MD 08/25/16 Furosemide (Furosemide) 40 Mg Tablet, 40 MG PO DAILY, #30 TAB Prov:CHUYITA SIMMS MD 08/25/16 Bupropion HCl (Bupropion HCl Sr) 100 Mg Tablet.er, 100 MG PO BID, #60 TAB Prov:CHUYITA SIMMS MD 08/25/16 Carvedilol (Coreg) 25 Mg Tablet, 25 MG PO BIDWM, #60 TAB Prov:CHUYITA SIMMS MD 08/25/16 Reported Medications Hydrocodone/Acetaminophen ([place] 5-325 Tablet) 5-325 Tablet, 1 TAB PO Q4HPRN, TAB 08/21/16 Nitroglycerin (Nitroglycerin) 0.4 Mg Tab.subl, 0.4 MG SL Y for CHEST TIGHTNESS, TAB 08/21/16 Lisinopril (Lisinopril) 20 Mg Tablet, 20 MG PO DAILY for HYPERTENSION, TAB 08/21/16 Digoxin (Digoxin) 125 Mcg Tablet, 1 TAB PO DAILY, TAB 08/21/16 Allergies: Coded Allergies: doxycycline (Verified Allergy, Severe, HIVES, 09/04/16) Family History FOUND: cancer (Breast-maternal grandmother, lung father, ) Vaccines fall 2014 Social History Smoking Status: Former smoker Substance Use Type: does not use Alcohol Intake: former alcohol drinker Last Drink: unknown Marital Status: Current 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) Advance Directives: Yes DPOA for Healthcare Only (Dawn Springer) Review of Systems Constitutional: DENIES: chills, dizziness, fever, weakness Eyes Vision: DENIES: double vision ENMT Hearing: DENIES: hearing loss Balance: DENIES: vertigo Mouth/Throat: DENIES: sore throat Cardiovascular chest pain (right side), dyspnea on exertion Rhythm/Rate: palpitations Pulmonary Respiratory: dyspnea, DENIES: cough, sputum GI Upper Abdomen: DENIES: nausea, vomiting Lower Abdomen: DENIES: diarrhea General: DENIES: dysuria Integumentary Skin: other (dry), DENIES: rash, sores Neurological General: DENIES: headache, numbness, seizures, syncope All Other Systems All Other Systems: Reviewed (remainder of 10-point ROS Neg.) Physical Exam General General Nourishment: well nourished, well developed, obese, apparent age Vital Signs Vital Signs Date Time Temp Pulse Resp B/P Pulse Ox O2 Delivery O2 Flow Rate FiO2 08/22/16 08:15 111 08/22/16 07:31 96.2 24 115/84 95 Room Air 08/22/16 05:15 21 Height (Feet): 5 Height (Inches): 5.00 Telemetry Rhythm: Atrial Fibrillation ENMT Brief: FOUND: mucosa moist Neck Brief: FOUND: thyromegaly, NOT FOUND: JVD, carotid bruits Respiratory Brief: FOUND: clear all bee, equal bilaterally, NOT FOUND: rales , wheezes Cardiovascular (brief) Cardiac Brief: FOUND: pedal edema (trace), NOT FOUND: click, gallop, murmur, regular rate, regular rhythm Abdomen (brief) Abdominal Brief: FOUND: BS normo active x4, soft, NOT FOUND: tender Integumentary (brief) Integumentary Brief: FOUND: dry, warm Neurologic RN Documented GCS Eye Opening: Verbal: Motor: Total: Psychiatric (brief) FOUND: alert, attentive, oriented, other (anxious) Laboratory Laboratory Tests Test 08/21/16 15:48 08/21/16 16:09 08/21/16 16:38 08/21/16 17:38 White Blood Count 9.7T/MM3 Red Blood Count 5.16M/MM3 Hemoglobin 15.4GM/DL Hematocrit 45.9% Mean Corpuscular Volume 89.0UM3 Mean Corpuscular Hemoglobin 29.8UUG Mean Corpuscular Hemoglobin Concent 33.6GM/DL RDW Standard Deviation 41.5FL Platelet Count 156T/MM3 Mean Platelet Volume 12.2UM3 Immature Granulocyte % (Auto) 0.1% Neutrophils (%) (Auto) 65.5% Lymphocytes (%) (Auto) 27.5% Monocytes (%) (Auto) 5.2% Eosinophils (%) (Auto) 1.4% Basophils (%) (Auto) 0.3% Absolute Immature Granulocyte (auto 0.01T/MM3 Absolute Neutrophils (auto) 6.4T/MM3 Absolute Lymphocytes (auto) 2.7T/MM3 Absolute Monocytes (auto) 0.5T/MM3 Absolute Eosinophils (auto) 0.1T/MM3 Absolute Basophils (auto) 0.0T/MM3 Turbidity < 20 Sodium Level 142MEQ/L Potassium Level 4.6MEQ/L Chloride Level 107MEQ/L Carbon Dioxide Level 21MEQ/L Anion Gap 14MEQ/L Blood Urea Nitrogen 17.0MG/DL Creatinine 0.7MG/DL Glomerular Filtration Rate Calc 89 BUN/Creatinine Ratio 24RATIO Glucose Level 271MG/DL Calculated Osmolality 285MOSM/KG Calcium Level 9.4MG/DL Total Bilirubin 1.20MG/DL Conjugated Bilirubin 0.00MG/DL Unconjugated Bilirubin 0.60MG/DL Icterus Index < 2 Aspartate Amino Transf (AST/SGOT) 36U/L Alanine Aminotransferase (ALT/SGPT) 47U/L Alkaline Phosphatase 228U/L Total Protein 7.5G/DL Albumin 3.9G/DL Globulin 3.6G/DL Albumin/Globulin Ratio 1.1RATIO Thyroid Stimulating Hormone (TSH) < 0.02MIU/L Chemistry Specimen Hemolysis < 15 Prothromb Time International Ratio 1.28 Activated Partial Thromboplast Time 29.3SEC Glucometer 227mg/dL Test 08/21/16 21:04 08/22/16 12:04 Glucometer 248mg/dL 260mg/dL EKG A Fib, rate 92 Radiology DATE OF EXAM: 08/21/16 ORDERING DOCTOR: SAL GEORGE MD TYPE OF EXAM: CT CHEST W/O CONTRAST REASON FOR EXAM: Thyroid mass known, ? lung masses Indication: ITS.REASON: Thyroid mass known, ? lung masses PROCEDURE: CT CHEST W/O CONTRAST: Encounter: Initial Comparison: None Technique: Axial CT images were performed through the chest without intravenous contrast. Coronal and sagittal two-dimensional reformats. Automated Exposure Control and Iterative Reconstruction dose reducing techniques were utilized. Findings: Lung window review demonstrates scattered solid nodular or semisolid foci in the right lung; the largest peripherally is pleural-based measuring 14.8 x 8.6 mm in the anterior aspect of the right upper lobe on axial image 30 of 86. Additional smaller nodular foci are seen, including a right upper lobe prehilar nodule of 5.6 mm on axial image 32 of 86. Additional somewhat more linear fibrotic-appearing regions are seen. There is mild mediastinal lymphadenopathy. Precarinal lymph node short axis dimension of 15.2 mm and several small left prevascular lymph nodes are seen. Subcarinal lymph node short axis dimension of 19.6 mm. No definite hilar contour abnormality. Heart and pericardium demonstrates no pericardial effusion. Mild coronary artery calcification. Minimal aortic atherosclerosis. Significant enlargement of the left thyroidal lobe. Lack of contrast limits its assessment. Pleural spaces are clear. Upper abdomen demonstrates no adrenal mass effect. Bone window review demonstrates degenerative spondylitis but no aggressive abnormality. Impression: 1. Multiple nodular foci in the right lung. If there are any prior studies for direct comparison, this would be of benefit. In the absence of such, follow-up in three months recommended if a high risk patient. 2. Mild mediastinal lymphadenopathy. 3. Thyromegaly in regards to the left thyroidal lobe. This could be on the basis of mass effect or diffuse asymmetric enlargement. 4. Coronary artery disease and aortic atherosclerosis. Impression/Recommendation Problems: (1) Atrial fibrillation with rapid ventricular response Status: Acute Assessment & Plan: Rate 100-110s. Somewhat dependent on patient's anxiety/ activity level. Reports some chest pain right>left. check troponin. Continue Coreg and Digoxin. Digoxin level in the am. Currently on warfarin, will need to be held when surgery and use Lovenox for coverage. (2) Systolic CHF with reduced left ventricular function, NYHA class 3 Status: Chronic Assessment & Plan: EF 40% per Echo. Is short of breath with activity / anxiety. Will give Lasix 40mg IV daily for gentle diuresis. Avoid positive fluid balance, Follow lytes and Kidney function (3) Thyrotoxicosis Status: Chronic Assessment & Plan: per Endocrine (4) Hypertension Status: Chronic Assessment & Plan: Secondary to Thyrotoxicosis. Continue Coreg and Lisinopril and continue to monitor (5) Diabetes type 2, uncontrolled Status: Chronic Assessment & Plan: per Endocrine (6) Morbid obesity with body mass index (BMI) of 40.0 or higher Status: Chronic Recommendation AFib RVR: Rate 100-110s. Somewhat dependent on patient's anxiety/ activity level. Reports some chest pain right>left. check troponin. Continue Coreg and Digoxin. Digoxin level in the am. Currently on warfarin, will need to be held when surgery and use Lovenox for coverage. Systolic CHF: EF 40% per Echo. Is short of breath with activity / anxiety. Will give Lasix 40mg IV daily for gentle diuresis. Avoid positive fluid balance, Follow lytes and Kidney function. HTN: Secondary to Thyrotoxicosis. Continue Coreg and Lisinopril and continue to monitor Thyrotoxicosis and DM: per Endocrine Thank you for allowing us to participate in the care of this patient, we will follow along with you. ANGELICA LAUREANO MD 09/04/16 1018: Past Medical History Current Medications Home Meds Active Scripts Rivaroxaban (Xarelto) 20 Mg Tablet, 20 MG PO WS for Afib-blood thinning, #30 TAB Prov:CHUYITA SIMMS MD 08/25/16 Lorazepam (Lorazepam) 0.5 Mg Tablet, 0.5 MG PO Q4HR Y for ANXIETY, #30 TAB Prov:CHUYITA SIMMS MD 08/25/16 Sitagliptin Phosphate (Januvia) 100 Mg Tablet, 100 MG PO ACB for Diabetes , #30 TAB Prov:CHUYITA SIMMS MD 08/25/16 Propylthiouracil (Propylthiouracil) 50 Mg Tablet, 100 MG PO Q6H for Hyperthyroidism, #120 TAB Prov:CHUYITA SIMMS MD 08/25/16 Glimepiride (Amaryl) 4 Mg Tablet, 4 MG PO BIDBS for Diabetes, #60 TAB Prov:CHUYITA SIMMS MD 08/25/16 Furosemide (Furosemide) 40 Mg Tablet, 40 MG PO DAILY, #30 TAB Prov:CHUYITA SIMMS MD 08/25/16 Bupropion HCl (Bupropion HCl Sr) 100 Mg Tablet.er, 100 MG PO BID, #60 TAB Prov:CHUYITA SIMMS MD 08/25/16 Carvedilol (Coreg) 25 Mg Tablet, 25 MG PO BIDWM, #60 TAB Prov:CHUYITA SIMMS MD 08/25/16 Reported Medications Hydrocodone/Acetaminophen ([place] 5-325 Tablet) 5-325 Tablet, 1 TAB PO Q4HPRN, TAB 08/21/16 Nitroglycerin (Nitroglycerin) 0.4 Mg Tab.subl, 0.4 MG SL Y for CHEST TIGHTNESS, TAB 08/21/16 Lisinopril (Lisinopril) 20 Mg Tablet, 20 MG PO DAILY for HYPERTENSION, TAB 08/21/16 Digoxin (Digoxin) 125 Mcg Tablet, 1 TAB PO DAILY, TAB 08/21/16 Allergies: Coded Allergies: doxycycline (Verified Allergy, Severe, HIVES, 09/04/16) Impression/Recommendation Recommendation After examining the patient I agree with the above assessment. I am involved in the formulation of the patient's plan of care. BLOSSOM BUNCH APRN Aug 22, 2016 12:57 ANGELICA LAUREANO MD Sep 04, 2016 10:18
--- NOTE | 2016-08-22 14:35 | CONSF ---
DATE OF CONSULTATION 08/22/2016 HISTORY OF PRESENT ILLNESS This patient is 51 years old. This patient has a history of hyperthyroidism going back to at least 09/24/2014. The patient has a mass of the left lobe of thyroid gland which has been present since at least 03/29/2015. The patient had a mass of the left lobe of the thyroid gland which was 4.5 cm x 3.1 cm x 2.6 cm on 03/31/2015. The patient did undergo a fine-needle aspiration biopsy of this mass at the left lobe of the thyroid gland on 03/31/2015. The biopsy did show atypia of uncertain significance. The mass at the left lobe of the thyroid gland was 3.1 cm x 4.8 cm x 3.2 cm on 2015. The patient underwent a repeat fine needle aspiration biopsy of the mass at left lobe of the thyroid gland on 01/27/2016 and this biopsy showed an adenomatous nodule with cystic degeneration and no malignant cells. The patient did have an ultrasound of the thyroid performed at [facility] on 08/21/2016. This was ordered by Dr. Sainz. This ultrasound of the thyroid did show a large 4.5 cm x 3.8 cm x 3.2 cm mass at the left lobe of the thyroid gland. There was moderate hypervascularity of this mass. There was a moderately heterogeneous appearance of the mass. There was no significant calcification at the mass. This large mass nearly occupied the entire left thyroid lobe. The mass was hypervascular and somewhat heterogeneous. Malignancy could not be excluded by the radiologist. The patient was seen at the office by Dr. Sainz on 08/21/2016. The patient had symptomatic hyperthyroidism at that time and the patient also had atrial fibrillation with rapid ventricular rate at this time. The patient was thought to have thyrotoxicosis. The patient was admitted from the office of Dr. Sainz to [facility] by the hospitalist service. The hospitalist did resume beta raymond therapy at the time of admission and did plan to double the dose of Carvedilol which the patient was already taking. The patient was seen in consultation by Dr. Alvaro Lehman on 08/21/2016. Dr. Lehman did think that the patient had thyrotoxicosis. With the atrial fibrillation with rapid ventricular rate, he did start the patient immediately on PTU. He did continue some beta raymond therapy. Dr. Lehman did think that this large mass at the left lobe of the thyroid gland will ultimately need to be removed with a left thyroid lobectomy. This operation will not be able to be done until there is better control of the hyperthyroidism and until the atrial fibrillation is under better control. Dr. Lehman did start the patient on PTU 100 mg every 6 hours. The patient also has some type 2 diabetes mellitus with hyperglycemia which is not under good control. Dr. Lehman is also treating this. It is thought that the absence or presence of malignancy in the large thyroid nodule cannot be determined with fine-needle aspiration biopsy since this is such a large nodule and the patient will ultimately need to have a left thyroid lobectomy to determine whether or not there is any malignancy present in this large nodule. The hyperthyroidism and atrial fibrillation will need to be under better control prior to performing a left thyroid lobectomy. FAMILY HISTORY There is no family history of thyroid cancer for this patient. PAST MEDICAL HISTORY Previous operations: 1. section in 1986 at [place], [place]. 2. Tonsillectomy in 1991 at [place], [place]. 3. Total abdominal hysterectomy with bilateral salpingo oophorectomy in 1991 at [place], [place]. 4. Excision of thyroglossal duct cyst between 1995 and 1997 at [place], [place]. Other current medical problems: 1. Sleep apnea. The patient uses BiPAP for this. 2. Morbid obesity. 3. Nicotine dependence. 4. Hypertension. 5. Type 2 diabetes mellitus. 6. Congestive heart failure. 7. Post-traumatic stress disorder. 8. Arthritis. The patient is not certain whether this is osteoarthritis or rheumatoid arthritis. SOCIAL HISTORY The patient lives in [place], [place]. 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 She does smoke about one pack of cigarettes each week. The patient is but has been from her for about five years. CURRENT MEDICATIONS Current medications at the time of admission to the hospital: 1. [place] 5/325 mg one tablet p.o. q.4h. p.r.n. pain. 2. Nitroglycerin 0.4 mg sublingually p.r.n. chest tightness. 3. Lisinopril 20 mg one tablet p.o. daily. 4. Carvedilol 12.5 mg one tablet p.o. b.i.d. 5. Digoxin 125 mcg one tablet p.o. daily. 6. Coumadin 3 mg one tablet p.o. daily. 7. Metformin 500 mg one tablet p.o. b.i.d. with meals. ALLERGY HISTORY The patient states she is ALLERGIC TO DOXYCYCLINE which causes a rash and hives. PHYSICAL EXAMINATION VITAL SIGNS: Temperature is 96.2 degrees oral. Pulse is 109. Respiratory rate is 24. Blood pressure is 115/84. Oxygen saturation is 95% on room air. Height is 65 inches. Weight is 126.5 kg. BMI is 46.4 kg/m2. NECK: The patient does have enlargement of the left lobe of the thyroid gland. No cervical lymphadenopathy. LABORATORY DATA TSH was 0.02 on 08/21/2016. IMPRESSION 1. Thyrotoxicosis. 2. Large 4.5 cm x 3.8 cm x 3.2 cm mass nearly occupying the entire left thyroid lobe. 3. Atrial fibrillation. 4. Anticoagulation with Coumadin. 5. Congestive heart failure. 6. Type 2 diabetes mellitus. 7. Morbid obesity 8. Sleep apnea. 9. Hypertension 10. Nicotine dependence. 11. Post-traumatic stress disorder. 12. Arthritis. RECOMMENDATION 1. Continue treatment of thyrotoxicosis and hyperthyroidism by Dr. Alvaro Lehman. The patient is currently receiving PTU and beta blockers. This will need be brought under good control prior to any left thyroid lobectomy operation. 2. Cardiac evaluation by Dr. Drummond with treatment of atrial fibrillation and congestive heart failure. The patient will require a cardiac evaluation and atrial fibrillation will need to be under control prior to any left thyroid lobectomy. 3. With the large size of this left thyroid mass, the patient will ultimately need undergo a left thyroid lobectomy after the thyrotoxicosis and hyperthyroidism are under control and after the atrial fibrillation is under control to determine the nature of this large left thyroid mass and to help determine whether or not there is any malignancy present within the mass. PATIENT EDUCATION I did talk with the patient today about the need to undergo a left thyroid lobectomy at some point. I did describe the nature of this operation to the patient [id number]. Expected benefits of operation were reviewed. Alternatives were reviewed. I did also talk with the patient about potential risks and complications of the operation. Anesthetic risk was discussed. Cardiac risk was discussed. Risk of respiratory complications was discussed. Risk of bleeding was discussed. Risk of infection and poor wound healing was discussed. I did also talk with the patient about the risk of injury to recurrent laryngeal nerves. The risk of injury to one recurrent laryngeal nerve with hoarseness was discussed. I did tell the patient that if she ultimately required a total thyroidectomy that there would be risk to both of her recurrent laryngeal nerves. I did tell the patient about the risk of hypoparathyroidism as a result of the thyroid operation. I did tell the patient that if the left thyroid mass is found be completely benign that she may just need to have a left thyroid lobe lobectomy. I did tell the patient if there is invasive carcinoma found in the left lobe of the thyroid gland that she will probably then need to come back to the operating room to undergo a completion right thyroid lobectomy. I did tell the patient that the risk of having both lobes of the thyroid removed would be much higher than just having one thyroid lobe removed. This was all discussed with the patient today. Questions were solicited from the patient. Her questions were answered. Timing of the operation was discussed. I did tell the patient that we want to have her hyperthyroidism and thyrotoxicosis under control. I told her we want to have her diabetes mellitus under control. I told her that we want her to have a cardiac evaluation and have her atrial fibrillation under control prior to any operation. The patient does appear to understand all this. She does agree to undergo a left thyroid lobectomy when it is safe to proceed with this operation. VALENTÍN
--- NOTE | 2016-08-22 15:40 | CONSPD ---
LUIS BOOTH PHARMACY INTERN 08/22/16 1524: Consultation Info Date DATE: 08/22/16 TIME: 15:12 Date of Consultation: Aug 22, 2016 Attending Physician: Dr. Flores Reason for Consultation: thyroid mass, lung nodules HPI - Adult Date DATE: 08/22/16 TIME: 15:12 General Chief Complaint: panic History of Present Illness 51-year-old female, seen by Dr. Sainz with history of mass in the thyroid first noted on CT in March 2015 and history of lung mass noted on CT of chest also in March 2015. Had biopsies of thyroid showing atypia of undetermined significance and fine-needle aspiration of the right lung showed no malignancy. Has multiple comorbidities, including atrial fibrillation, congestive heart failure with decreased ejection fraction, and thyrotoxicosis. Has had difficulty following through with recommended care, did not get thyroid medication suppressant refilled, recommended CT scan of the chest had not been done. Presented on day of admit to see Dr. Sainz with complaints of excessive fatigue, intermittent chest pain, feels short of breath. Was noted to be hypertensive on intake and atrial fibrillation with rapid ventricular response. Dr. Sainz visited with hospitalist, patient admitted for further evaluation with consultation by hand hardener, Dr. Lehman, type inspector, and surgeon for evaluation of the thyroid mass. Patient sitting on bedside at time of intake. States continues to have excessive fatigue, intermittent chest pain, and shortness of air. Denies abdominal pain, no nausea or vomiting. States intermittent loose/watery stools. Denies hematochezia or hematuria. Past Medical History Past Medical History Patient's Medical History: (1) Thyroid nodule, hot (2) Atrial fibrillation with rapid ventricular response Surgical History Patient's Surgical History: Thyroglossal duct cyst removal tonsils hysterectomy Current Medications Home Meds Reported Medications Hydrocodone/Acetaminophen ([place] 5-325 Tablet) 5-325 Tablet, 1 TAB PO Q4HPRN, TAB 08/21/16 Nitroglycerin (Nitroglycerin) 0.4 Mg Tab.subl, 0.4 MG SL Y for CHEST TIGHTNESS, TAB 08/21/16 Lisinopril (Lisinopril) 20 Mg Tablet, 20 MG PO DAILY for HYPERTENSION, TAB 08/21/16 Carvedilol (Carvedilol) 12.5 Mg Tablet, 1 TAB PO BIDWM, TAB BEST WITH FOOD. 08/21/16 Digoxin (Digoxin) 125 Mcg Tablet, 1 TAB PO DAILY, TAB 08/21/16 Warfarin Sodium (Warfarin Sodium) 3 Mg Tablet, 1 TAB PO DAILY, #30 TAB 5 Refills 08/21/16 Metformin HCl (Metformin HCl) 500 Mg Tablet, 500 MG PO BIDWM, TAB Take one tablet, by mouth, 2 times a day with Meals. 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) Advance Directives: Yes DPOA for Healthcare Only ([facility]wn [facility]) Review of Systems Constitutional: REPORTS: weakness, DENIES: chills, fever, weight gain, weight loss Eyes Vision: DENIES: double vision, vision changes ENMT Mouth/Throat: DENIES: change in swallowing, sore throat Cardiovascular chest pain, dyspnea on exertion (see history of present illness) Rhythm/Rate: irregular beat Pulmonary Respiratory: cough (states intermittent cough productive at times of clear mucus), DENIES: dyspnea GI Upper Abdomen: DENIES: nausea, pain, vomiting General: DENIES: dysuria, frequency Musculoskeletal General: weakness, DENIES: joint pain Integumentary Skin: DENIES: itching, rash Neurological General: weakness, DENIES: fainting, headache Psychiatric Psychiatric: anxiety, depression Endocrine heat/cold intolerance (eat intolerance) Hematologic/Lymphatic DENIES: anemia Physical Exam General General Nourishment: obese Vital Signs Vital Signs Date Time Temp Pulse Resp B/P Pulse Ox O2 Delivery O2 Flow Rate FiO2 08/22/16 08:45 112 08/22/16 07:31 96.2 24 115/84 95 Room Air 08/22/16 05:15 21 Height (Feet): 5 Height (Inches): 5.00 Telemetry Rhythm: Atrial Fibrillation Eyes Brief: FOUND: PERRL, NOT FOUND: scleral icterus ENMT Brief: FOUND: mucosa moist Neck Brief: FOUND: thyromegaly (enlargement of left thyroid), NOT FOUND: adenopathy Respiratory Brief: FOUND: clear all bee, other (slightly diminished bilateral posterior.), NOT FOUND: rales Cardiovascular (brief) Cardiac Brief: FOUND: pedal edema (trace pedal edema), NOT FOUND: gallop, regular rate (heart irregularly irregular) Abdomen (brief) Abdominal Brief: FOUND: BS normo active x4, soft, NOT FOUND: hepatosplenomegaly (no organomegaly or mass appreciated but difficult to assess secondary to body habitus) Lymphatic (brief) Lymphatic Brief: NOT FOUND: adenopathy Musculoskeletal (brief) Musculoskeletal Brief: NOT FOUND: deformity, loss of motion Integumentary (brief) Integumentary Brief: FOUND: dry, warm, NOT FOUND: rash Neurologic RN Documented GCS Eye Opening: Verbal: Motor: Total: Psychiatric (brief) FOUND: alert, attentive, oriented, other (mildly anxious) Laboratory Laboratory Tests Test 08/21/16 15:48 08/21/16 16:09 08/21/16 16:38 08/21/16 17:38 White Blood Count 9.7T/MM3 Red Blood Count 5.16M/MM3 Hemoglobin 15.4GM/DL Hematocrit 45.9% Mean Corpuscular Volume 89.0UM3 Mean Corpuscular Hemoglobin 29.8UUG Mean Corpuscular Hemoglobin Concent 33.6GM/DL RDW Standard Deviation 41.5FL Platelet Count 156T/MM3 Mean Platelet Volume 12.2UM3 Immature Granulocyte % (Auto) 0.1% Neutrophils (%) (Auto) 65.5% Lymphocytes (%) (Auto) 27.5% Monocytes (%) (Auto) 5.2% Eosinophils (%) (Auto) 1.4% Basophils (%) (Auto) 0.3% Absolute Immature Granulocyte (auto 0.01T/MM3 Absolute Neutrophils (auto) 6.4T/MM3 Absolute Lymphocytes (auto) 2.7T/MM3 Absolute Monocytes (auto) 0.5T/MM3 Absolute Eosinophils (auto) 0.1T/MM3 Absolute Basophils (auto) 0.0T/MM3 Turbidity < 20 Sodium Level 142MEQ/L Potassium Level 4.6MEQ/L Chloride Level 107MEQ/L Carbon Dioxide Level 21MEQ/L Anion Gap 14MEQ/L Blood Urea Nitrogen 17.0MG/DL Creatinine 0.7MG/DL Glomerular Filtration Rate Calc 89 BUN/Creatinine Ratio 24RATIO Glucose Level 271MG/DL Calculated Osmolality 285MOSM/KG Calcium Level 9.4MG/DL Total Bilirubin 1.20MG/DL Conjugated Bilirubin 0.00MG/DL Unconjugated Bilirubin 0.60MG/DL Icterus Index < 2 Aspartate Amino Transf (AST/SGOT) 36U/L Alanine Aminotransferase (ALT/SGPT) 47U/L Alkaline Phosphatase 228U/L Total Protein 7.5G/DL Albumin 3.9G/DL Globulin 3.6G/DL Albumin/Globulin Ratio 1.1RATIO Thyroid Stimulating Hormone (TSH) < 0.02MIU/L Chemistry Specimen Hemolysis < 15 Prothromb Time International Ratio 1.28 Activated Partial Thromboplast Time 29.3SEC Glucometer 227mg/dL Test 08/21/16 21:04 08/22/16 12:04 08/22/16 13:19 Glucometer 248mg/dL 260mg/dL Magnesium Level 1.8MG/DL Troponin I < 0.012ng/ml Chemistry Specimen Hemolysis < 15 Impression/Recommendation Impression 1. Thyroid toxicosis and hyperthyroidism, under care of endocrinology/Dr. Alvaro Lehman. Large left thyroid mass 2. History of congestive heart failure and atrial fibrillation, cardiac evaluation by Dr. Cardona. Currently on beta blockers 3. History of lung masses, prior right fine-needle aspiration negative for malignancy. Now with multiple right lung nodules. Prior CT done in [place] in March 2015 not available for comparison at time of yesterday's CAT scan. Recommendation Dr. Jones visited with Dr. Noguera today. Discussed with patient need for correction of the thyroid toxicosis, thyroid mass, and atrial fibrillation, then will focus on lung nodules. Reassuring the prior lung masses were benign, but important to follow. Following discussion, patient has no questions. Will request addendum of CAT scan chest results after comparison is made to prior CT done March 2015. Continue supportive care and will follow. CAMDEN JONES MD 08/22/16 6031: Past Medical History Current Medications Home Meds Reported Medications Hydrocodone/Acetaminophen ([place] 5-325 Tablet) 5-325 Tablet, 1 TAB PO Q4HPRN, TAB 08/21/16 Nitroglycerin (Nitroglycerin) 0.4 Mg Tab.subl, 0.4 MG SL Y for CHEST TIGHTNESS, TAB 08/21/16 Lisinopril (Lisinopril) 20 Mg Tablet, 20 MG PO DAILY for HYPERTENSION, TAB 08/21/16 Carvedilol (Carvedilol) 12.5 Mg Tablet, 1 TAB PO BIDWM, TAB BEST WITH FOOD. 08/21/16 Digoxin (Digoxin) 125 Mcg Tablet, 1 TAB PO DAILY, TAB 08/21/16 Warfarin Sodium (Warfarin Sodium) 3 Mg Tablet, 1 TAB PO DAILY, #30 TAB 5 Refills 08/21/16 Metformin HCl (Metformin HCl) 500 Mg Tablet, 500 MG PO BIDWM, TAB Take one tablet, by mouth, 2 times a day with Meals. 08/21/16 Allergies: Coded Allergies: doxycycline (Verified Allergy, Severe, HIVES, 08/21/16) Impression/Recommendation Recommendation I interviewed and examined the patient. I discussed the case with Dr. Noguera. I developed the paln of care as outlined above by Valeria Booth APRN. LUIS BOOTH APRN Aug 22, 2016 15:24 CAMDEN JONES MD Aug 22, 2016 16:52
--- NOTE | 2016-08-22 16:16 | ECHOF ---
DATE OF PROCEDURE August 22, 2016 REFERRING PHYSICIAN Rinku George MD This is a two-dimensional echo with spectral Doppler, color-flow and M-mode. It was obtained in a patient with atrial fibrillation and congestive heart failure. This was a technically difficult study. Left atrium is dilated. Left ventricle end-diastolic dimension is normal. Left ventricular wall thickness is at the upper limits of normal. LV systolic function is reduced with ejection fraction of about 40% with global hypokinesia. Right atrium is dilated. Right ventricle is normal. Aortic root dimension is normal. Mitral valve is morphologically normal with moderate mitral regurgitation. Aortic valve was not visualized well however it appears to have some calcification with no stenosis or insufficiency. Tricuspid valve shows mild tricuspid regurgitation with mild pulmonary hypertension with estimated pulmonary artery systolic pressure of 36. Pulmonary valve shows trace of pulmonary insufficiency. There is no pericardial effusion. IMPRESSION 1. Technically difficult study. 2. Global hypokinesia with ejection fraction of 40%. 3. Moderate mitral regurgitation. 4. Biatrial dilation. 5. Mild tricuspid regurgitation with estimated pulmonary artery systolic pressure of 36. 6. Trace of pulmonary insufficiency. 7. Aortic sclerosis. MTDD
--- NOTE | 2016-08-22 16:40 | PNPDOC ---
Subjective Date DATE: 08/22/16 TIME: 16:20 Subjective F/U: Thyrotoxicosis Rough day-busy with imagine and lab draws. Feels very tired and worn out. Hard to be active. Does get winded and fatigued with activities. Not SOA at rest. No chest pain. Appetite decreased and variable. Anxious frequently-lorazepam helps , but tries to use minimally so as not to get to foggy. Objective Vital Signs Vital signs Vital Signs Date Time Temp Pulse Resp B/P Pulse Ox O2 Delivery O2 Flow Rate FiO2 08/22/16 16:12 97.8 113 20 119/65 93 Room Air 08/22/16 05:15 21 Telemetry Rhythm: Atrial Fibrillation Height (Feet): 5 Height (Inches): 5.00 Weight (Kilograms): 126.500 General General Appearance: Alert, Obese, Orientated x 3, Well Nourished, Well Developed, Cooperative, Mild Distress, Looks Stated Age Eyes (Brief) Eyes: FOUND: EOMI, PERRL, NOT FOUND: scleral icterus ENMT (Brief) ENMT: FOUND: hearing intact, mucosa moist Neck (Brief) Neck: FOUND: midline, NOT FOUND: nuchal rigidity, spasm Respiratory (Brief) Respiratory: FOUND: clear all bee, equal bilaterally, NOT FOUND: rales, wheezes Cardiovascular (Brief) Cardiac: FOUND: pedal edema (+3), NOT FOUND: regular rate (irregular, rapid), regular rhythm (irregular ) Abdomen (Brief) Abdominal: FOUND: BS normo active x4, soft, NOT FOUND: distended, tender Extremities (Brief) Extremity : Side: Bilateral Extremity: leg Extremity Finding: FOUND: edema (+3) Musculoskeletal (Brief) Musculoskeletal: FOUND: extremities move equally, NOT FOUND: deformity, loss of motion, spasm Integumentary (Brief) Integumentary: FOUND: dry, warm Neurologic (Brief) Neurological: FOUND: cranial 2-12 intact, motor (Intact ) Psychiatric (Brief) Psychiatric: FOUND: alert, attentive, normal affect, oriented, other (Appears tired ) Laboratory Laboratory Laboratory Tests 08/21/16 15:48 Laboratory Tests 08/21/16 15:48 Assessment & Plan Problems: (1) Thyrotoxicosis Status: Chronic Qualifiers: Thyrotoxicosis type: unspecified thyrotoxicosis type (2) Atrial fibrillation with rapid ventricular response Status: Acute Assessment & Plan: She is on warfarin and we will likely have to hold this for any likely surgery. INR is pending. We need better rate control and some symptomatic relief (3) Thyroid nodule Status: Chronic Assessment & Plan: Anticipate resection in near future. (4) Diabetes type 2, uncontrolled Status: Chronic Qualifiers: Diabetes mellitus complication status: with hyperglycemia (5) Hypertension Qualifiers: Hypertension type: secondary to endocrine disorders Qualified Codes: I15.2 - Hypertension secondary to endocrine disorders (6) Morbid obesity with body mass index (BMI) of 40.0 or higher Status: Chronic Plan/Intensity of Service IVF d/c by Dr Lehman to decrease risk for volume overload. PTU initiated for thyrotoxicosis. Left thyroid lobectomy anticipate in near future. Dr Drummond consulted for evaluation and to help manage Afib (as well as for Sx clearance in near future). ECHO taken; result pending. Will initiate Lovenox and can restart Coumadin as Sx will be about 10 days in the future. Continue lorazepam to help with anxiety. Recheck BMP and Mg in am secondary to lisinopril and Lasix use. Recheck CBC in am to monitor blood counts in light of Lovenox and Coumadin use. Check INR in am due to Coumadin. DVT Prophylaxis: Lovenox, Coumadin Code Status Full Code Hospital Course Summary Disclaimer The hospital course summary below is not to be considered part of the above Progress Note. Hospital Course Summary 3/7 Rough day-busy with imagine and lab draws. Feels very tired and worn out. Hard to be active. Does get winded and fatigued with activities. Not SOA at rest. No chest pain. Appetite decreased and variable. Anxious frequently-lorazepam helps , but tries to use minimally so as not to get to foggy. IVF d/c by Dr Lehman to decrease risk for volume overload. PTU initiated for thyrotoxicosis. Left thyroid lobectomy anticipate in near future. Dr Drummond consulted for evaluation and to help manage Afib (as well as for Sx clearance in near future). ECHO taken; result pending. Will initiate Lovenox and can restart Coumadin as Sx will be about 10 days in the future. Continue lorazepam to help with anxiety. Recheck BMP and Mg in am secondary to lisinopril and Lasix use. Recheck CBC in am to monitor blood counts in light of Lovenox and Coumadin use. Check INR in am due to Coumadin. CHUYITA SIMMS MD Aug 22, 2016 16:23
[2016-08-22] MEDS ORDERED: PRN ORDERS MC (16:45)
[2016-08-22] MEDS ORDERED: NITROGLYCERIN 0.4 MG SUBLINGUAL TABLET SL PRN (16:45)
[2016-08-22] MEDS ORDERED: BISACODYL 10 MG SUPPOSITORY RECTALLY PRN (16:45)
[2016-08-22] MEDS ORDERED: INFLUENZA VAC QIV 2016-17 (Fluarix*)(>=3yo) 0.5ml IM ONE (17:00)
[2016-08-22] MEDS ORDERED: INFLUENZA VAC. ADMIN CHARGE INJ ONE (17:00)
[2016-08-22] MEDS ORDERED: WARFARIN 3 MG TABLET PO ONE (17:30)
[2016-08-22] MEDS: ENOXAPARIN 40 MG/0.4 ML INJECTION SQ SCH (17:57)
[2016-08-22] MEDS: MAG-AL + SIM LIQUID 30 ML UDC PO PRN (21:46)
[2016-08-22] MEDS: HYDROCODONE/APAP 5 mg/325 mg TABLET PO PRN (21:47)
[2016-08-23 05:33] LABS: BASOPHILS % (AUTO) 0.3 % (0-2); EOSINOPHILS # (AUTO) 0.2 T/MM3 (0-0.5); EOSINOPHILS % (AUTO) 2.8 % (0-4); HCT - HEMATOCRIT 42.3 % (36-46); HGB - HEMOGLOBIN 14.1 GM/DL (12-16); IMMATURE GRANULOCYTE # (AUTO) 0.01 T/MM3 (0.00-0.03); IMMATURE GRANULOCYTE % (AUTO) 0.2 % (0.0-0.5); INR 1.25 (0.76-1.04); LYMPHOCYTES # (AUTO) 1.8 T/MM3 (1-4.8); MEAN CORPUSCULAR HGB 29.9 UUG (26-34); MEAN CORPUSCULAR HGB CONC(MCHC 33.3 GM/DL (31-37); MEAN CORPUSCULAR VOLUME 89.8 UM3 (80-100); MEAN PLATELET VOLUME 12.4 UM3 (9.4-12.4); MONOCYTES # (AUTO) 0.5 T/MM3 (0-0.8); NEUTROPHILS % (AUTO) 61.7 % (33-66); PROTHROMBIN TIME 13.6 SEC (9.31-12.49); RED BLOOD COUNT 4.71 M/MM3 (4.00-5.20); WBC - WHITE BLOOD COUNT 6.5 T/MM3 (4.5-11.0)
[2016-08-23 05:48] LABS: ANION GAP 8 MEQ/L (5-15); BUN/CREATININE RATIO 40 RATIO (6-26); CALCIUM 8.7 MG/DL (8.4-10.2); CHLORIDE 106 MEQ/L (98-107); CO2 - CARBON DIOXIDE 26 MEQ/L (22-30); CREATININE 0.5 MG/DL (0.7-1.2); GLOMERULAR FILTRATION RATE 131; GLUCOSE 222 MG/DL (65-110); POTASSIUM 4.4 MEQ/L (3.6-5); SODIUM 140 MEQ/L (134-144)
[2016-08-23 06:19] LABS: DIGOXIN < 0.4 NG/ML (0.8-2.0)
[2016-08-23] MEDS: PROPYLTHIOURACIL 50 MG TABLET PO SCH ×3 (06:39→18:07)
[2016-08-23 08:09] VITALS: BP 125/80; PULSE 111; RESP 20; TEMP 95.8; O2SAT 95
--- NOTE | 2016-08-23 08:16 | PNPDOC ---
Subjective Date DATE: 08/23/16 TIME: 08:08 Subjective Feels quite a bit better today and less short of breath. Also feels less dizzy. Has less swelling in feet and ankles. Still feels occasional palpitations. Objective Vital Signs Vital Signs Vital Signs 08/22/16 08/22/16 08/22/16 08/23/16 21:05 23:10 23:46 01:03 Temp 96.8 Pulse 104 93 Resp 26 B/P 128/81 Pulse Ox 96 O2 Delivery Spontaneous/Timed Bi-pap Spontaneous/Timed FiO2 21 21 Height (Feet): 5 Height (Inches): 5.00 Weight (Kilograms): 126.300 General General Nourishment: Well Nourished, Well Developed, Obese, Adult Eyes (Brief) Eyes Brief: FOUND: PERRL Neck (Brief) Neck Brief: FOUND: thyromegaly, NOT FOUND: carotid bruits, tenderness Respiratory (Brief) Respiratory Brief: FOUND clear all bee, FOUND equal bilaterally Cardiovascular (Brief) Cardiac Brief: FOUND: pedal edema, regular rate, NOT FOUND: regular rhythm Abdomen (Brief) Abdominal Brief: FOUND: BS normo active x4 Integumentary(Brief) Integumentary Brief: FOUND: dry, warm Neurologic(Brief) Neurological Brief: FOUND: tremor Psychiatric(Brief) Psychiatric Brief: FOUND: alert, attentive, normal affect, oriented Comments Has a more positive outlook today. Less anxious. Laboratory Laboratory Laboratory Tests Test 08/22/16 12:04 08/22/16 17:56 08/23/16 05:18 Glucometer 260mg/dL (65-110) 245mg/dL (65-110) Anion Gap 8MEQ/L (5-15) BUN/Creatinine Ratio 40RATIO (6-26) Blood Urea Nitrogen 20.0MG/DL (7-17) Calcium Level 8.7MG/DL (8.4-10.2) Calculated Osmolality 279MOSM/KG (261-280) Carbon Dioxide Level 26MEQ/L (22-30) Chloride Level 106MEQ/L (98-107) Creatinine 0.5MG/DL (0.7-1.2) Glomerular Filtration Rate Calc 131 Glucose Level 222MG/DL (65-110) Potassium Level 4.4MEQ/L (3.6-5) Sodium Level 140MEQ/L (134-144) Laboratory Tests Test 08/22/16 12:04 08/22/16 13:19 08/22/16 17:56 08/23/16 05:18 Glucometer 260mg/dL (65-110) 245mg/dL (65-110) Magnesium Level 1.8MG/DL (1.6-2.3) 2.0MG/DL (1.6-2.3) Troponin I < 0.012ng/ml (0-0.12) Chemistry Specimen Hemolysis < 15 (0-25) < 15 (0-25) White Blood Count 6.5T/MM3 (4.5-11.0) Red Blood Count 4.71M/MM3 (4.00-5.20) Hemoglobin 14.1GM/DL (12-16) Hematocrit 42.3% (36-46) Mean Corpuscular Volume 89.8UM3 (80-100) Mean Corpuscular Hemoglobin 29.9UUG (26-34) Mean Corpuscular Hemoglobin Concent 33.3GM/DL (31-37) RDW Standard Deviation 40.8FL (36.9-50.2) Platelet Count 127T/MM3 (130-400) Mean Platelet Volume 12.4UM3 (9.4-12.4) Immature Granulocyte % (Auto) 0.2% (0.0-0.5) Neutrophils (%) (Auto) 61.7% (33-66) Lymphocytes (%) (Auto) 28.0% (23-45) Monocytes (%) (Auto) 7.0% (0-9.0) Eosinophils (%) (Auto) 2.8% (0-4) Basophils (%) (Auto) 0.3% (0-2) Absolute Immature Granulocyte (auto 0.01T/MM3 (0.00-0.03) Absolute Neutrophils (auto) 4.0T/MM3 (1.8-7.7) Absolute Lymphocytes (auto) 1.8T/MM3 (1-4.8) Absolute Monocytes (auto) 0.5T/MM3 (0-0.8) Absolute Eosinophils (auto) 0.2T/MM3 (0-0.5) Absolute Basophils (auto) 0.0T/MM3 (0-0.2) Prothromb Time International Ratio 1.25 (0.76-1.04) Turbidity < 20 (0-20) Sodium Level 140MEQ/L (134-144) Potassium Level 4.4MEQ/L (3.6-5) Chloride Level 106MEQ/L (98-107) Carbon Dioxide Level 26MEQ/L (22-30) Anion Gap 8MEQ/L (5-15) Blood Urea Nitrogen 20.0MG/DL (7-17) Creatinine 0.5MG/DL (0.7-1.2) Glomerular Filtration Rate Calc 131 BUN/Creatinine Ratio 40RATIO (6-26) Glucose Level 222MG/DL (65-110) Calculated Osmolality 279MOSM/KG (261-280) Calcium Level 8.7MG/DL (8.4-10.2) Icterus Index < 2 (0-7) Digoxin Level < 0.4NG/ML (0.8-2.0) Assessment & Plan Problems: (1) Diabetes type 2, uncontrolled Status: Chronic Qualifiers: Diabetes mellitus complication status: with hyperglycemia Assessment & Plan: Glucose better, but not yet controlled well enough. Will be doubling glimepiride today. Expect fair control by tomorrow. (2) Thyroid nodule Status: Chronic Assessment & Plan: Will need excision when heart condition stabilizes. (3) Atrial fibrillation with rapid ventricular response Status: Acute Assessment & Plan: May have better chance at converting to sinus rhythm when rendered euthyroid. Still not controlling ventricular response all the time. Will further block down the thyroid today. (4) Thyrotoxicosis Status: Chronic Qualifiers: Thyrotoxicosis type: unspecified thyrotoxicosis type Assessment & Plan: To speed correction of high T3 level SSKI will be administered over the next 24 hours. This will aid in shrinking and reducing vascularity of the nodule in preparation for surgical excision. PINKY BAUGH MD Aug 23, 2016 08:12
[2016-08-23 08:23] VITALS: PULSE 111; RESP 20
[2016-08-23] MEDS: CARVEDILOL 12.5 MG TABLET PO SCH (08:31)
[2016-08-23] MEDS: LISINOPRIL 20 MG TABLET PO SCH (08:31)
[2016-08-23] MEDS: ENOXAPARIN 40 MG/0.4 ML INJECTION SQ SCH (08:31)
[2016-08-23] MEDS: DIGOXIN 125 MCG TABLET PO SCH (08:32)
[2016-08-23] MEDS: GLIMEPIRIDE 4 MG TABLET PO SCH (08:32)
[2016-08-23] MEDS: DOCUSATE SODIUM 100 MG CAPSULE PO SCH ×2 (08:32→22:01)
[2016-08-23] MEDS: [UNRECOGNIZED DRUG - OTHER] PO SCH ×3 (08:33→18:08)
[2016-08-23] MEDS: FUROSEMIDE 40 MG/4 ML INJECTION IV SCH (08:33)
[2016-08-23] MEDS: POTASSIUM IODIDE PO SCH ×3 (08:33→18:08)
[2016-08-23] MEDS ORDERED: CARVEDILOL 12.5 MG TABLET PO ONE (09:15)
[2016-08-23] MEDS: FUROSEMIDE 40 MG TABLET PO SCH (10:00)
[2016-08-23] MEDS: LORAZEPAM 2 MG/ML INJECTION IV PRN ×2 (10:29→19:46)
--- NOTE | 2016-08-23 12:50 | PNPDOC ---
Subjective Date DATE: 08/23/16 TIME: 12:37 Subjective F/U: Thyrotoxicosis Up and down. Does feel breathing slightly improved-gets winded with activities, but not as pronounced. Not with cough or congestion. Seeing good urine output with Lasix (and less frequency-going more at once). Stress levels high-worries about potential cancer. Ativan is helping with anxiety. Has tried Lexapro in past, but not able to tolerate. Discussed about Wellbutrin as it may help mood and help decrease urge to smoke (smoking about a pack a week). Would like to try Nicotine patch to see if helps. Ambulating well - walking out in [place] frequently to help keep her from feeling 'cooped' up. Objective Vital Signs Vital signs Vital Signs Date Time Temp Pulse Resp B/P Pulse Ox O2 Delivery O2 Flow Rate FiO2 08/23/16 08:32 98 08/23/16 08:23 20 08/23/16 08:09 95.8 125/80 95 Room Air 08/23/16 01:03 21 Telemetry Rhythm: Atrial Fibrillation Height (Feet): 5 Height (Inches): 5.00 Weight (Kilograms): 126.300 General General Appearance: Alert, Obese, Orientated x 3, Well Nourished, Well Developed, Cooperative, Looks Stated Age Eyes (Brief) Eyes: FOUND: EOMI, PERRL, NOT FOUND: scleral icterus ENMT (Brief) ENMT: FOUND: hearing intact, mucosa moist Neck (Brief) Neck: FOUND: midline, NOT FOUND: nuchal rigidity, spasm Respiratory (Brief) Respiratory: FOUND: equal bilaterally, other (No distress on RA ), wheezes ( Faint end expiratory ), NOT FOUND: rales Cardiovascular (Brief) Cardiac: FOUND: pedal edema (+3 ), regular rate (Irregular), NOT FOUND: regular rhythm (Irregular ) Abdomen (Brief) Abdominal: FOUND: BS normo active x4, soft, NOT FOUND: distended, tender Extremities (Brief) Extremity : Side: Bilateral Extremity: leg Extremity Finding: FOUND: edema (+3 ) Musculoskeletal (Brief) Musculoskeletal: FOUND: extremities move equally, NOT FOUND: deformity, loss of motion, spasm, tenderness Integumentary (Brief) Integumentary: FOUND: dry, warm Neurologic (Brief) Neurological: FOUND: cranial 2-12 intact, motor (Intact ) Psychiatric (Brief) Psychiatric: FOUND: alert, attentive, normal affect (Tearful at times when discussing health issues ), oriented Laboratory Laboratory Laboratory Tests 08/21/16 15:48 08/23/16 05:18 Laboratory Tests 08/21/16 15:48 08/23/16 05:18 Assessment & Plan Problems: (1) Thyrotoxicosis Status: Chronic Qualifiers: Thyrotoxicosis type: unspecified thyrotoxicosis type (2) Thyroid nodule Status: Chronic Assessment & Plan: Anticipate resection in near future. (3) Atrial fibrillation with rapid ventricular response Status: Acute Assessment & Plan: She is on warfarin and we will likely have to hold this for any likely surgery. INR is pending. We need better rate control and some symptomatic relief (4) Systolic CHF with reduced left ventricular function, NYHA class 3 Status: Chronic (5) Diabetes type 2, uncontrolled Status: Chronic Qualifiers: Diabetes mellitus complication status: with hyperglycemia (6) Hypertension Status: Chronic Qualifiers: Hypertension type: secondary to endocrine disorders Qualified Codes: I15.2 - Hypertension secondary to endocrine disorders (7) Tobacco dependency Status: Chronic Assessment & Plan: Pt working on stopping smoking - About 1 pack per week currently. (8) Depression Status: Chronic Qualifiers: Depression Type: unspecified Qualified Codes: F32.9 - Major depressive disorder, single episode, unspecified (9) Anxiety Status: Chronic (10) Morbid obesity with body mass index (BMI) of 40.0 or higher Status: Chronic Plan/Intensity of Service Dr Lehman is continuing PTU and adding SSKI to help thyrotoxicosis. Will consult dietary education and have Diabetic education. Dr Drummond change Coumadin to Xarelto for anticoagulation due to Afib. Coreg increased to 25mg BIDWM. Continue lorazepam to help with anxiety. Discussed about starting Wellbutrin to help mood and smoking cessation. Start Nicotine patch 7mg daily to help decrease cravings to smoke. Recheck BMP am secondary to lisinopril and Lasix use. Recheck CBC in am to monitor blood counts in light of Xarelto use. DVT Prophylaxis: Xarelto Code Status Full Code Hospital Course Summary Disclaimer The hospital course summary below is not to be considered part of the above Progress Note. Hospital Course Summary 3/7 Rough day-busy with imagine and lab draws. Feels very tired and worn out. Hard to be active. Does get winded and fatigued with activities. Not SOA at rest. No chest pain. Appetite decreased and variable. Anxious frequently-lorazepam helps , but tries to use minimally so as not to get to foggy. IVF d/c by Dr Lehman to decrease risk for volume overload. PTU initiated for thyrotoxicosis. Left thyroid lobectomy anticipate in near future. Dr Drummond consulted for evaluation and to help manage Afib (as well as for Sx clearance in near future). ECHO taken; result pending. Will initiate Lovenox and can restart Coumadin as Sx will be about 10 days in the future. Continue lorazepam to help with anxiety. Recheck BMP and Mg in am secondary to lisinopril and Lasix use. Recheck CBC in am to monitor blood counts in light of Lovenox and Coumadin use. Check INR in am due to Coumadin. 08/23 Up and down. Does feel breathing slightly improved-gets winded with activities, but not as pronounced. Not with cough or congestion. Seeing good urine output with Lasix (and less frequency-going more at once). Stress levels high-worries about potential cancer. Ativan is helping with anxiety. Has tried Lexapro in past, but not able to tolerate. Discussed about Wellbutrin as it may help mood and help decrease urge to smoke (smoking about a pack a week). Would like to try Nicotine patch to see if helps. Ambulating well - walking out in [place] frequently to help keep her from feeling 'cooped' up. Dr Lehman is continuing PTU and adding SSKI to help thyrotoxicosis. Will consult dietary education and have Diabetic education. Dr Drummond change Coumadin to Xarelto for anticoagulation due to Afib. Coreg increased to 25mg BIDWM. Continue lorazepam to help with anxiety. Discussed about starting Wellbutrin to help mood and smoking cessation. Start Nicotine patch 7mg daily to help decrease cravings to smoke. Recheck BMP am secondary to lisinopril and Lasix use. Recheck CBC in am to monitor blood counts in light of Xarelto use. CHUYITA SIMMS MD Aug 23, 2016 12:41
[2016-08-23] MEDS: NICOTINE 7 MG PATCH TD SCH (14:13)
--- NOTE | 2016-08-23 16:14 | PNPDOC ---
LUIS BOOTH PCAS 08/23/16 1605: Subjective Date DATE: 08/23/16 TIME: 16:02 Sitting on bedside, family with patient. States feeling minimally improved, continues to have some shortness of air, intermittent nausea. Denies chest pain. Is eating and drinking fair. General: No fever, no night sweats Eyes: No redness, no pain, no diplopia ENT: No mouth sores, no trouble swallowing Cardiac: Intermittent pain/palpitations Pulmonary: No cough. Positive dyspnea on exertion and intermittently Abdomen: + nausea, no vomiting, no diarrhea or constipation : No urgency, frequency, dysuria, or hematuria Musculoskeletal: No arthritis, no myalgias Neurological: No headaches, no focal weakness Skin: No rash, no sores Psychiatric: Positive anxiety Objective Vital Signs Vital Signs 08/23/16 08/23/16 08/23/16 08:09 08:23 08:32 Temp 95.8 Pulse 111 111 98 Resp 20 20 B/P 125/80 Pulse Ox 95 O2 Delivery Room Air Height (Feet): 5 Height (Inches): 5.00 Weight (Kilograms): 126.300 General Alert, Orientated x 3, Overweight, No Acute Distress Respiratory (Brief) Respiratory: FOUND: clear all bee, equal bilaterally, NOT FOUND: wheezes Cardiovascular (Brief) Cardiac: FOUND: regular rhythm (irregularly irregular), NOT FOUND: pedal edema Abdomen (Brief) Abdominal: FOUND: BS normo active x4, soft, NOT FOUND: hepatosplenomegaly ( difficult to assess secondary to body habitus) Musculoskeletal (Brief) NOT FOUND: loss of motion, tenderness Neurologic (Brief) FOUND: cranial 2-12 intact, NOT FOUND: motor (no acute motor deficit) Psychiatric (Brief) FOUND: alert, attentive, normal affect, oriented Laboratory Laboratory Tests Test 08/22/16 17:56 08/23/16 05:18 08/23/16 12:00 Glucometer 245mg/dL 208mg/dL White Blood Count 6.5T/MM3 Red Blood Count 4.71M/MM3 Hemoglobin 14.1GM/DL Hematocrit 42.3% Mean Corpuscular Volume 89.8UM3 Mean Corpuscular Hemoglobin 29.9UUG Mean Corpuscular Hemoglobin Concent 33.3GM/DL RDW Standard Deviation 40.8FL Platelet Count 127T/MM3 Mean Platelet Volume 12.4UM3 Immature Granulocyte % (Auto) 0.2% Neutrophils (%) (Auto) 61.7% Lymphocytes (%) (Auto) 28.0% Monocytes (%) (Auto) 7.0% Eosinophils (%) (Auto) 2.8% Basophils (%) (Auto) 0.3% Absolute Immature Granulocyte (auto 0.01T/MM3 Absolute Neutrophils (auto) 4.0T/MM3 Absolute Lymphocytes (auto) 1.8T/MM3 Absolute Monocytes (auto) 0.5T/MM3 Absolute Eosinophils (auto) 0.2T/MM3 Absolute Basophils (auto) 0.0T/MM3 Prothromb Time International Ratio 1.25 Turbidity < 20 Sodium Level 140MEQ/L Potassium Level 4.4MEQ/L Chloride Level 106MEQ/L Carbon Dioxide Level 26MEQ/L Anion Gap 8MEQ/L Blood Urea Nitrogen 20.0MG/DL Creatinine 0.5MG/DL Glomerular Filtration Rate Calc 131 BUN/Creatinine Ratio 40RATIO Glucose Level 222MG/DL Calculated Osmolality 279MOSM/KG Calcium Level 8.7MG/DL Magnesium Level 2.0MG/DL Icterus Index < 2 Chemistry Specimen Hemolysis < 15 Digoxin Level < 0.4NG/ML Assessment & Plan Assessment 1. Thyroid toxicosis and hyperthyroidism, under care of endocrinology/Dr. Alvaro Lehman. Large left thyroid mass 2. History of congestive heart failure and atrial fibrillation, cardiac evaluation by Dr. Cardona. Currently on beta blockers 3. History of lung masses, prior right fine-needle aspiration negative for malignancy. Now with multiple right lung nodules. Prior CT done in [place] not available for comparison at time of yesterday's CAT scan. 4. Tobacco addiction. Plan/Intensity of Service Continue supportive care and follow-up with endocrinology/cardiology. Long discussion on stopping smoking. Patient verbalizes wants to quit; congratulated. Reviewed important health reasons to quit are potential heart effects, including increased risk for NH and stroke, also has known lung nodules. She lives with smokers; suggested she ask family to not smoke in home or around her. Encouraged in her quit attempt. Agrees to set quit date within the next week to 10 days. Following discussion, she would like to try Wellbutrin ; discussed with Dr. Saenz. Reinforced to patient if uses nicotine patches, must not smoke because of her coronary issues. Acknowledges instructions. Code Status Full Code Hospital Course Summary Disclaimer The visit summary below is not to be considered part of the above Progress Note. Hospital Course Summary 3/ Rough day-busy with imagine and lab draws. Feels very tired and worn out. Hard to be active. Does get winded and fatigued with activities. Not SOA at rest. No chest pain. Appetite decreased and variable. Anxious frequently-lorazepam helps , but tries to use minimally so as not to get to foggy. IVF d/c by Dr Lehman to decrease risk for volume overload. PTU initiated for thyrotoxicosis. Left thyroid lobectomy anticipate in near future. Dr Drummond consulted for evaluation and to help manage Afib (as well as for Sx clearance in near future). ECHO taken; result pending. Will initiate Lovenox and can restart Coumadin as Sx will be about 10 days in the future. Continue lorazepam to help with anxiety. Recheck BMP and Mg in am secondary to lisinopril and Lasix use. Recheck CBC in am to monitor blood counts in light of Lovenox and Coumadin use. Check INR in am due to Coumadin. 08/23 Up and down. Does feel breathing slightly improved-gets winded with activities, but not as pronounced. Not with cough or congestion. Seeing good urine output with Lasix (and less frequency-going more at once). Stress levels high-worries about potential cancer. Ativan is helping with anxiety. Has tried Lexapro in past, but not able to tolerate. Discussed about Wellbutrin as it may help mood and help decrease urge to smoke (smoking about a pack a week). Would like to try Nicotine patch to see if helps. Ambulating well - walking out in [place] frequently to help keep her from feeling 'cooped' up. Dr Lehman is continuing PTU and adding SSKI to help thyrotoxicosis. Will consult dietary education and have Diabetic education. Dr Drummond change Coumadin to Xarelto for anticoagulation due to Afib. Coreg increased to 25mg BIDWM. Continue lorazepam to help with anxiety. Discussed about starting Wellbutrin to help mood and smoking cessation. Start Nicotine patch 7mg daily to help decrease cravings to smoke. Recheck BMP am secondary to lisinopril and Lasix use. Recheck CBC in am to monitor blood counts in light of Xarelto use. CHAR LAZARO 08/23/162000: Assessment & Plan Assessment Patient examined, chart reviewed, radiology images discussed with Dr. De Dios. The lung nodules do not appear to be metastatic thyroid cancer based on the CT characteristics. Will await comparison with prior CT scan. Appreciate Dr. Lehman's assistance in controlling the thyrotoxicosis and Dr. Zarate's assistance in controlling the atrial fib. I participated in the development of the plan of care for this patient and agree with documentation by Valeria Booth. Item Value Date Time White Blood Count 6.5 T/MM3 08/23/1618 White Blood Count 9.7 T/MM3 08/21/16 1548 Platelet Count 127 T/MM3 L 08/23/1618 . LUIS BOOTH APRN Aug 23, 2016 16:05 CHAR LAZARO Aug 23, 2016 20:01
[2016-08-23 16:34] VITALS: BP 124/73; PULSE 91; RESP 16; TEMP 96.6; O2SAT 99
[2016-08-23] MEDS: RIVAROXABAN 20 MG TABLET PO SCH (18:07)
[2016-08-23] MEDS: CARVEDILOL 25 MG TABLET PO SCH (18:08)
[2016-08-23] MEDS: HYDROCODONE/APAP 5 mg/325 mg TABLET PO PRN (19:45)
[2016-08-23] MEDS: BuPROPion SR (12 HR) 100 MG TABLET PO SCH (22:01)
[2016-08-23 22:55] VITALS: PULSE 107
[2016-08-24] VITALS (7 sets, daily range): BP systolic 96–127; BP diastolic 67–94; PULSE 84–99; RESP 14–28; TEMP 95.6–96.9; O2SAT 97–98
[2016-08-24] MEDS: PROPYLTHIOURACIL 50 MG TABLET PO SCH ×5 (00:13→23:42)
[2016-08-24 05:36] LABS: BASOPHILS % (AUTO) 0.3 % (0-2); EOSINOPHILS # (AUTO) 0.2 T/MM3 (0-0.5); EOSINOPHILS % (AUTO) 3.6 % (0-4); HCT - HEMATOCRIT 41.3 % (36-46); HGB - HEMOGLOBIN 13.8 GM/DL (12-16); IMMATURE GRANULOCYTE # (AUTO) 0.01 T/MM3 (0.00-0.03); IMMATURE GRANULOCYTE % (AUTO) 0.2 % (0.0-0.5); LYMPHOCYTES % (AUTO) 32.5 % (23-45); MEAN CORPUSCULAR HGB 30.2 UUG (26-34); MEAN CORPUSCULAR HGB CONC(MCHC 33.4 GM/DL (31-37); MEAN CORPUSCULAR VOLUME 90.4 UM3 (80-100); MEAN PLATELET VOLUME 12.5 UM3 (9.4-12.4); MONOCYTES # (AUTO) 0.4 T/MM3 (0-0.8); NEUTROPHILS #(AUTO)-ABSOLUTE 3.4 T/MM3 (1.8-7.7); NEUTROPHILS % (AUTO) 56.4 % (33-66); RED BLOOD COUNT 4.57 M/MM3 (4.00-5.20); WBC - WHITE BLOOD COUNT 6.1 T/MM3 (4.5-11.0)
[2016-08-24 05:47] LABS: ANION GAP 9 MEQ/L (5-15); BUN/CREATININE RATIO 38 RATIO (6-26); CALCIUM 8.5 MG/DL (8.4-10.2); CHLORIDE 105 MEQ/L (98-107); CO2 - CARBON DIOXIDE 25 MEQ/L (22-30); CREATININE 0.5 MG/DL (0.7-1.2); GLOMERULAR FILTRATION RATE 131; GLUCOSE 230 MG/DL (65-110); POTASSIUM 3.9 MEQ/L (3.6-5); SODIUM 139 MEQ/L (134-144)
--- NOTE | 2016-08-24 08:16 | PNPDOC ---
Subjective Date DATE: 08/24/16 TIME: 08:07 Subjective Feels exhausted, feels like she's making up for missed sleep at home. No dyspnea at rest, but still has some with exertion. Objective Vital Signs Vital Signs Vital Signs 08/23/16 08/23/16 08/24/16 08/24/16 22:55 23:48 00:00 00:55 Temp 96.9 Pulse 107 84 Resp 28 B/P 96/74 Pulse Ox 97 O2 Delivery Spontaneous/Timed Bi-pap Spontaneous/Timed FiO2 21 21 21 08/24/16 03:06 O2 Delivery Spontaneous/Timed FiO2 21 Height (Feet): 5 Height (Inches): 5.00 Weight (Kilograms): 126.300 General General Nourishment: Well Nourished, Well Developed, Obese, Adult Eyes (Brief) Eyes Brief: FOUND: PERRL Neck (Brief) Neck Brief: FOUND: thyromegaly, NOT FOUND: carotid bruits, tenderness Respiratory (Brief) Respiratory Brief: FOUND clear all bee, FOUND equal bilaterally Cardiovascular (Brief) Cardiac Brief: FOUND: pedal edema, regular rate, NOT FOUND: regular rhythm Abdomen (Brief) Abdominal Brief: FOUND: BS normo active x4 Integumentary(Brief) Integumentary Brief: FOUND: dry, warm Neurologic(Brief) Neurological Brief: FOUND: tremor Psychiatric(Brief) Psychiatric Brief: FOUND: attentive, normal affect Comments Sleepy this morning, but arouses easily. Laboratory Laboratory Laboratory Tests Test 08/23/16 12:00 08/23/16 17:11 08/23/16 21:47 08/24/16 04:32 Glucometer 208mg/dL (65-110) 184mg/dL (65-110) 307mg/dL (65-110) Anion Gap 9MEQ/L (5-15) BUN/Creatinine Ratio 38RATIO (6-26) Blood Urea Nitrogen 19.0MG/DL (7-17) Calcium Level 8.5MG/DL (8.4-10.2) Calculated Osmolality 277MOSM/KG (261-280) Carbon Dioxide Level 25MEQ/L (22-30) Chloride Level 105MEQ/L (98-107) Creatinine 0.5MG/DL (0.7-1.2) Glomerular Filtration Rate Calc 131 Glucose Level 230MG/DL (65-110) Potassium Level 3.9MEQ/L (3.6-5) Sodium Level 139MEQ/L (134-144) Laboratory Tests Test 08/23/16 12:00 08/23/16 17:11 08/23/16 21:47 08/24/16 04:32 Glucometer 208mg/dL (65-110) 184mg/dL (65-110) 307mg/dL (65-110) White Blood Count 6.1T/MM3 (4.5-11.0) Red Blood Count 4.57M/MM3 (4.00-5.20) Hemoglobin 13.8GM/DL (12-16) Hematocrit 41.3% (36-46) Mean Corpuscular Volume 90.4UM3 (80-100) Mean Corpuscular Hemoglobin 30.2UUG (26-34) Mean Corpuscular Hemoglobin Concent 33.4GM/DL (31-37) RDW Standard Deviation 40.5FL (36.9-50.2) Platelet Count 136T/MM3 (130-400) Mean Platelet Volume 12.5UM3 (9.4-12.4) Immature Granulocyte % (Auto) 0.2% (0.0-0.5) Neutrophils (%) (Auto) 56.4% (33-66) Lymphocytes (%) (Auto) 32.5% (23-45) Monocytes (%) (Auto) 7.0% (0-9.0) Eosinophils (%) (Auto) 3.6% (0-4) Basophils (%) (Auto) 0.3% (0-2) Absolute Immature Granulocyte (auto 0.01T/MM3 (0.00-0.03) Absolute Neutrophils (auto) 3.4T/MM3 (1.8-7.7) Absolute Lymphocytes (auto) 2.0T/MM3 (1-4.8) Absolute Monocytes (auto) 0.4T/MM3 (0-0.8) Absolute Eosinophils (auto) 0.2T/MM3 (0-0.5) Absolute Basophils (auto) 0.0T/MM3 (0-0.2) Turbidity < 20 (0-20) Sodium Level 139MEQ/L (134-144) Potassium Level 3.9MEQ/L (3.6-5) Chloride Level 105MEQ/L (98-107) Carbon Dioxide Level 25MEQ/L (22-30) Anion Gap 9MEQ/L (5-15) Blood Urea Nitrogen 19.0MG/DL (7-17) Creatinine 0.5MG/DL (0.7-1.2) Glomerular Filtration Rate Calc 131 BUN/Creatinine Ratio 38RATIO (6-26) Glucose Level 230MG/DL (65-110) Calculated Osmolality 277MOSM/KG (261-280) Calcium Level 8.5MG/DL (8.4-10.2) Icterus Index < 2 (0-7) Chemistry Specimen Hemolysis < 15 (0-25) Assessment & Plan Problems: (1) Diabetes type 2, uncontrolled Status: Chronic Qualifiers: Diabetes mellitus complication status: with hyperglycemia Assessment & Plan: Glucose still averaging in 200's. Will add 2nd drug (Januvia ) this morning. I anticipate she will go home on current glimepiride and Januvia. (2) Thyroid nodule Status: Chronic Assessment & Plan: Will need excision when heart condition stabilizes. (3) Atrial fibrillation with rapid ventricular response Status: Acute Assessment & Plan: May have better chance at converting to sinus rhythm when rendered euthyroid. Controlling ventricular response better now. (4) Thyrotoxicosis Status: Chronic Qualifiers: Thyrotoxicosis type: unspecified thyrotoxicosis type Assessment & Plan: Has had her 3 doses of SSKI. This will aid in shrinking and reducing vascularity of the nodule in preparation for surgical excision. Continue PTU q 6 hours. PINKY BAUGH MD Aug 24, 2016 08:10
[2016-08-24] MEDS: LISINOPRIL 20 MG TABLET PO SCH (09:00)
[2016-08-24] MEDS: FUROSEMIDE 40 MG TABLET PO SCH (09:00)
--- NOTE | 2016-08-24 09:21 | PNPDOC ---
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 States "feeling more rested." Continues with shortness of air on exertion, denies increased symptoms. No chest pain currently. Eating and drinking well. Normal voiding. Reports pudding consistency stool yesterday-"it's always like that." General: No fever, no night sweats Eyes: No redness, no pain, no diplopia ENT: No mouth sores, no trouble swallowing Cardiac: No chest pain or palpitations today Pulmonary: No cough, no shortness of breath, no wheezing Abdomen: No pain, no nausea vomiting, no diarrhea or constipation : No urgency, frequency, dysuria, or hematuria Musculoskeletal: No arthritis, no myalgias Neurological: No headaches, no focal weakness Skin: No rash, no sores Psychiatric: + anxiety Objective Vital Signs Vital Signs 08/23/16 08/23/16 08/24/16 08/24/16 22:55 23:48 00:00 00:55 Temp 96.9 Pulse 107 84 Resp 28 B/P 96/74 Pulse Ox 97 O2 Delivery Spontaneous/Timed Bi-pap Spontaneous/Timed FiO2 21 21 21 08/24/16 08/24/16 08/24/16 03:06 08:47 09:04 Temp 95.6 Pulse 90 90 Resp 14 14 B/P 102/69 O2 Delivery Spontaneous/Timed Room Air FiO2 21 Height (Feet): 5 Height (Inches): 5.00 Weight (Kilograms): 124.300 General Alert, Obese, Orientated x 3, No Acute Distress Eyes (Brief) Eyes: FOUND: PERRL, NOT FOUND: scleral icterus Neck (Brief) Neck: FOUND: thyroid nodule (left) Respiratory (Brief) Respiratory: FOUND: clear all bee, equal bilaterally, other (slightly diminished bilateral posterior.), NOT FOUND: wheezes Cardiovascular (Brief) Cardiac: NOT FOUND: pedal edema, regular rhythm (irregularly irregular) Abdomen (Brief) Abdominal: FOUND: BS normo active x4, soft, NOT FOUND: hepatosplenomegaly ( difficult to assess secondary to body habitus), tender Musculoskeletal (Brief) NOT FOUND: loss of motion, tenderness Neurologic (Brief) FOUND: cranial 2-12 intact, NOT FOUND: motor (no acute motor deficit) Psychiatric (Brief) FOUND: alert, attentive, normal affect, oriented Laboratory Laboratory Tests Test 08/23/16 12:00 08/23/16 17:11 08/23/16 21:47 08/24/16 04:32 Glucometer 208mg/dL 184mg/dL 307mg/dL White Blood Count 6.1T/MM3 Red Blood Count 4.57M/MM3 Hemoglobin 13.8GM/DL Hematocrit 41.3% Mean Corpuscular Volume 90.4UM3 Mean Corpuscular Hemoglobin 30.2UUG Mean Corpuscular Hemoglobin Concent 33.4GM/DL RDW Standard Deviation 40.5FL Platelet Count 136T/MM3 Mean Platelet Volume 12.5UM3 Immature Granulocyte % (Auto) 0.2% Neutrophils (%) (Auto) 56.4% Lymphocytes (%) (Auto) 32.5% Monocytes (%) (Auto) 7.0% Eosinophils (%) (Auto) 3.6% Basophils (%) (Auto) 0.3% Absolute Immature Granulocyte (auto 0.01T/MM3 Absolute Neutrophils (auto) 3.4T/MM3 Absolute Lymphocytes (auto) 2.0T/MM3 Absolute Monocytes (auto) 0.4T/MM3 Absolute Eosinophils (auto) 0.2T/MM3 Absolute Basophils (auto) 0.0T/MM3 Turbidity < 20 Sodium Level 139MEQ/L Potassium Level 3.9MEQ/L Chloride Level 105MEQ/L Carbon Dioxide Level 25MEQ/L Anion Gap 9MEQ/L Blood Urea Nitrogen 19.0MG/DL Creatinine 0.5MG/DL Glomerular Filtration Rate Calc 131 BUN/Creatinine Ratio 38RATIO Glucose Level 230MG/DL Calculated Osmolality 277MOSM/KG Calcium Level 8.5MG/DL Icterus Index < 2 Chemistry Specimen Hemolysis < 15 Assessment & Plan Assessment 1. Thyroid toxicosis and hyperthyroidism, under care of endocrinology/Dr. Alvaro Lehman. Large left thyroid mass 2. History of congestive heart failure and atrial fibrillation, cardiac evaluation by Dr. Cardona. Currently on Digoxin and CoReg. 3. History of lung masses, prior right fine-needle aspiration negative for malignancy. Now with multiple right lung nodules. Prior CT done in [place] in March 2015 not available for comparison at time of yesterday's CAT scan. Received CT disc from [facility] -patient had CT angiography/ pulmonary angiogram on 06/27/16 and 07/10/16. Have requested addendum after comparison with CT done here @ [facility] [place]/21/16. Plan/Intensity of Service Continue supportive care and follow-up with endocrinology/cardiology. Subjectively feeling improved. Accepts stop smoking information and has definite Quit Plan. Reinforced health benefits. Code Status Full Code Hospital Course Summary Disclaimer The visit summary below is not to be considered part of the above Progress Note. Hospital Course Summary 3/ Rough day-busy with imagine and lab draws. Feels very tired and worn out. Hard to be active. Does get winded and fatigued with activities. Not SOA at rest. No chest pain. Appetite decreased and variable. Anxious frequently-lorazepam helps , but tries to use minimally so as not to get to foggy. IVF d/c by Dr Lehman to decrease risk for volume overload. PTU initiated for thyrotoxicosis. Left thyroid lobectomy anticipate in near future. Dr Drummond consulted for evaluation and to help manage Afib (as well as for Sx clearance in near future). ECHO taken; result pending. Will initiate Lovenox and can restart Coumadin as Sx will be about 10 days in the future. Continue lorazepam to help with anxiety. Recheck BMP and Mg in am secondary to lisinopril and Lasix use. Recheck CBC in am to monitor blood counts in light of Lovenox and Coumadin use. Check INR in am due to Coumadin. 08/23 Up and down. Does feel breathing slightly improved-gets winded with activities, but not as pronounced. Not with cough or congestion. Seeing good urine output with Lasix (and less frequency-going more at once). Stress levels high-worries about potential cancer. Ativan is helping with anxiety. Has tried Lexapro in past, but not able to tolerate. Discussed about Wellbutrin as it may help mood and help decrease urge to smoke (smoking about a pack a week). Would like to try Nicotine patch to see if helps. Ambulating well - walking out in [place] frequently to help keep her from feeling 'cooped' up. Dr Lehman is continuing PTU and adding SSKI to help thyrotoxicosis. Will consult dietary education and have Diabetic education. Dr Drummond change Coumadin to Xarelto for anticoagulation due to Afib. Coreg increased to 25mg BIDWM. Continue lorazepam to help with anxiety. Discussed about starting Wellbutrin to help mood and smoking cessation. Start Nicotine patch 7mg daily to help decrease cravings to smoke. Recheck BMP am secondary to lisinopril and Lasix use. Recheck CBC in am to monitor blood counts in light of Xarelto use. CHAR LAZARO 08/24/16 0909: Assessment & Plan Assessment Patient examined, chart reviewed, agree with documentation of Valeria Booth. I participated development of the plan of care of this patient. CT scan from June from [facility] was reviewed with Dr. De Dios and there is not a significant change in the lung nodules that appear to be scar. She had prior scans from 2014 in 2016 that we are currently requesting those images. She is much less thyrotoxic today. Much calmer. Will await thyroid surgery. LUIS BOOTH APRN Aug 24, 2016 09:20 CHAR LAZARO Aug 24, 2016 17:29
[2016-08-24] MEDS: CARVEDILOL 25 MG TABLET PO SCH ×2 (09:36→17:11)
[2016-08-24] MEDS: [UNRECOGNIZED DRUG - OTHER] PO SCH (09:36)
[2016-08-24] MEDS: NICOTINE PATCH REMOVAL TD SCH (09:36)
[2016-08-24] MEDS: NICOTINE 7 MG PATCH TD SCH (09:36)
[2016-08-24] MEDS: POTASSIUM IODIDE PO SCH (09:36)
[2016-08-24] MEDS: DIGOXIN 125 MCG TABLET PO SCH (09:37)
[2016-08-24] MEDS: GLIMEPIRIDE 4 MG TABLET PO SCH ×2 (09:37→17:12)
[2016-08-24] MEDS: BuPROPion SR (12 HR) 100 MG TABLET PO SCH ×2 (09:37→20:41)
[2016-08-24] MEDS: DOCUSATE SODIUM 100 MG CAPSULE PO SCH ×2 (09:37→20:41)
[2016-08-24] MEDS: SITAGLIPTIN 100 MG TABLET PO SCH (09:39)
--- NOTE | 2016-08-24 15:06 | PNPDOC ---
BLOSSOM BUNCH PLASTIC OUTFITTER 08/24/16 1256: Subjective Date DATE: 08/24/16 TIME: 12:53 Subjective F/U A Fib RVR Anne is sitting up on the bedside. She is pleasant and calm. She denies chest pain or palpitations. Objective Vital Signs Vital signs Vital Signs 08/24/16 08/24/16 08/24/16 08/24/16 00:55 03:06 08:47 09:04 Temp 95.6 Pulse 90 90 Resp 14 14 B/P 102/69 O2 Delivery Spontaneous/Timed Spontaneous/Timed Room Air FiO2 21 21 08/24/16 08/24/16 09:37 12:08 Pulse 89 B/P 127/67 Telemetry Rhythm: Atrial Fibrillation Height (Feet): 5 Height (Inches): 5.00 Weight (Kilograms): 124.300 General Alert, Orientated x 3 ENMT (Brief) mucosa moist Neck (Brief) NOT FOUND: JVD, carotid bruits Respiratory (Brief) clear all bee, equal bilaterally, NOT FOUND: rales, wheezes Cardiovascular (Brief) regular rate, NOT FOUND: click, gallop, murmur, pedal edema, regular rhythm, rub Abdomen (Brief) BS normo active x4, soft, NOT FOUND: tender Integumentary (Brief) dry, warm Laboratory Laboratory Laboratory Tests Test 08/22/16 13:19 08/22/16 17:56 08/23/16 05:18 08/23/16 12:00 Magnesium Level 1.8MG/DL 2.0MG/DL Troponin I < 0.012ng/ml Chemistry Specimen Hemolysis < 15 < 15 Glucometer 245mg/dL 208mg/dL White Blood Count 6.5T/MM3 Red Blood Count 4.71M/MM3 Hemoglobin 14.1GM/DL Hematocrit 42.3% Mean Corpuscular Volume 89.8UM3 Mean Corpuscular Hemoglobin 29.9UUG Mean Corpuscular Hemoglobin Concent 33.3GM/DL RDW Standard Deviation 40.8FL Platelet Count 127T/MM3 Mean Platelet Volume 12.4UM3 Immature Granulocyte % (Auto) 0.2% Neutrophils (%) (Auto) 61.7% Lymphocytes (%) (Auto) 28.0% Monocytes (%) (Auto) 7.0% Eosinophils (%) (Auto) 2.8% Basophils (%) (Auto) 0.3% Absolute Immature Granulocyte (auto 0.01T/MM3 Absolute Neutrophils (auto) 4.0T/MM3 Absolute Lymphocytes (auto) 1.8T/MM3 Absolute Monocytes (auto) 0.5T/MM3 Absolute Eosinophils (auto) 0.2T/MM3 Absolute Basophils (auto) 0.0T/MM3 Prothromb Time International Ratio 1.25 Turbidity < 20 Sodium Level 140MEQ/L Potassium Level 4.4MEQ/L Chloride Level 106MEQ/L Carbon Dioxide Level 26MEQ/L Anion Gap 8MEQ/L Blood Urea Nitrogen 20.0MG/DL Creatinine 0.5MG/DL Glomerular Filtration Rate Calc 131 BUN/Creatinine Ratio 40RATIO Glucose Level 222MG/DL Calculated Osmolality 279MOSM/KG Calcium Level 8.7MG/DL Icterus Index < 2 Digoxin Level < 0.4NG/ML Test 08/23/16 17:11 08/23/16 21:47 08/24/16 04:32 08/24/16 05:50 Glucometer 184mg/dL 307mg/dL 211mg/dL White Blood Count 6.1T/MM3 Red Blood Count 4.57M/MM3 Hemoglobin 13.8GM/DL Hematocrit 41.3% Mean Corpuscular Volume 90.4UM3 Mean Corpuscular Hemoglobin 30.2UUG Mean Corpuscular Hemoglobin Concent 33.4GM/DL RDW Standard Deviation 40.5FL Platelet Count 136T/MM3 Mean Platelet Volume 12.5UM3 Immature Granulocyte % (Auto) 0.2% Neutrophils (%) (Auto) 56.4% Lymphocytes (%) (Auto) 32.5% Monocytes (%) (Auto) 7.0% Eosinophils (%) (Auto) 3.6% Basophils (%) (Auto) 0.3% Absolute Immature Granulocyte (auto 0.01T/MM3 Absolute Neutrophils (auto) 3.4T/MM3 Absolute Lymphocytes (auto) 2.0T/MM3 Absolute Monocytes (auto) 0.4T/MM3 Absolute Eosinophils (auto) 0.2T/MM3 Absolute Basophils (auto) 0.0T/MM3 Turbidity < 20 Sodium Level 139MEQ/L Potassium Level 3.9MEQ/L Chloride Level 105MEQ/L Carbon Dioxide Level 25MEQ/L Anion Gap 9MEQ/L Blood Urea Nitrogen 19.0MG/DL Creatinine 0.5MG/DL Glomerular Filtration Rate Calc 131 BUN/Creatinine Ratio 38RATIO Glucose Level 230MG/DL Calculated Osmolality 277MOSM/KG Calcium Level 8.5MG/DL Icterus Index < 2 Chemistry Specimen Hemolysis < 15 Test 08/24/16 11:00 Glucometer 251mg/dL Laboratory Tests 08/24/16 04:32 Laboratory Tests 08/24/16 04:32 Medications Current Medications Sodium Chloride (Normal Saline IV) 1,000 ml @ 100 mls/hr Q10H IV Last administered on 08/22/16 02:13; Start 08/21/16 at 15:02; Stop 08/22/16 at 08:10; Status DC Acetaminophen (Tylenol Regular Strength) 1-2 tabs Q5H PRN PO PAIN; Start at 15:15 Ondansetron HCl (Zofran) 4 mg Q6H PRN IV NAUSEA &/OR VOMITING; Start 08/21/16 at 15:15 Magnesium Hydroxide (Mom) 30 ml DAILY PRN PO CONSTIPATION; Start 08/21/16 at 15: 15 Docusate Sodium (Colace) 100 mg BID PO Last administered on 08/24/16 09:37; Start 08/21/16 at 21:00 Digoxin (Lanoxin) 125 mcg DAILY PO Last administered on 08/24/16 09:37; Start 08/22/16 at 09:00 Acetaminophen/ Hydrocodone Bitart ([place] 5/325) 1 tab Q6-12H PRN PO PAIN Last administered on 08/23/16 19:45; Start 08/21/16 at 15:30 Lisinopril (Prinivil) 20 mg DAILY PO Last administered on 08/23/16 08:31; Start 08/22/16 at 09:00 Lorazepam (Ativan) 0.5 mg Q8H PRN IV Last administered on 08/23/16 19:46; Start 08/21/16 at 15:45 Propylthiouracil (Ptu) 100 mg Q6H PO Last administered on 08/24/16 12:06; Start 08/21/16 at 18:00 Glimepiride (Amaryl) 4 mg WB PO Last administered on 08/24/16 09:37; Start 08/23 at 08:00 Miscellaneous Medication (May use PRN orders) PRN PRN MC ; Start 08/22/16 at 16 :45 Bisacodyl (Dulcolax) 10 mg DAILY PRN RECTALLY CONSTIPATION; Start 08/22/16 at 16 :45 Al Hydroxide/Mg Hydroxide (Maalox) 30 ml Q3H PRN PO INDIGESTION Last administered on 08/22/16 21:46; Start 08/22/16 at 16:45 Nitroglycerin (Nitrostat) 0.4 mg Q5M PRN SL CHEST PAIN; Start 08/22/16 at 16:45 Warfarin Sodium (COUMADIN 3 mg) 3 mg O ONCE PO Last administered on 08/22/16 18:13; Start 08/22/16 at 17:30; Stop 08/22/16 at 17:31; Status DC Enoxaparin Sodium (Lovenox) 40 mg DAILY SQ Last administered on 08/23/16 08:31 ; Start 08/22/16 at 16:45; Stop 08/23/16 at 08:58; Status DC Influenza Virus Vaccine Quadrival (FLUARIX QIV Vac.) 0.5 ml O ONCE IM Last administered on 08/22/16 17:57; Start 08/22/16 at 17:00; Stop 08/22/16 at 17: 04; Status DC Potassium Iodide (Sski) 4 drop TIDWM PO Last administered on 08/24/16 09:36; Start 08/23/16 at 09:00; Stop 08/24/16 at 08:01; Status DC Rivaroxaban (Xarelto) 20 mg WS PO Last administered on 08/23/16 18:07; Start at 17:30 Carvedilol (Coreg) 12.5 mg O ONCE PO Last administered on 08/23/16 10:28; Start 08/23/16 at 09:15; Stop 08/23/16 at 09:16; Status DC Influenza Virus Vaccine (Flu Vaccine Admin Charge) 1 each STK-MED ONCE INJ ; Start 08/22/16 at 17:00; Stop 08/23/16 at 09:04; Status DC Furosemide (Lasix) 40 mg DAILY PO ; Start 08/23/16 at 10:00 Nicotine (Nicoderm) 7 mg DAILY TD Last administered on 08/24/16 09:36; Start at 12:45 Nicotine (Nicoderm Patch Removal) 1 removal DAILY TD Last administered on 09:36; Start 08/24/16 at 09:00 Bupropion HCl (Wellbutrin Sr) 100 mg BID PO Last administered on 08/24/16 09:37 ; Start 08/23/16 at 21:00 Sitagliptin Phosphate (Januvia) 100 mg ACB PO Last administered on 08/24/16 09: 39; Start 08/24/16 at 08:00 Assessment & Plan Problems: (1) Atrial fibrillation with rapid ventricular response Status: Acute Assessment & Plan: Xarelto 20mg daily for anticoagulation, samples provided (2) Systolic CHF with reduced left ventricular function, NYHA class 3 Status: Chronic Assessment & Plan: Continue Lasix 40mg daily. Avoid positive fluid balance. (3) Thyrotoxicosis Status: Chronic Qualifiers: Thyrotoxicosis type: unspecified thyrotoxicosis type Assessment & Plan: per Endocrine (4) Hypertension Status: Chronic Qualifiers: Hypertension type: secondary to endocrine disorders Qualified Codes: I15.2 - Hypertension secondary to endocrine disorders Assessment & Plan: Secondary to Thyrotoxicosis. Continue Coreg and Lisinopril and continue to monitor (5) Diabetes type 2, uncontrolled Status: Chronic Qualifiers: Diabetes mellitus complication status: with hyperglycemia Assessment & Plan: per Endocrine (6) Morbid obesity with body mass index (BMI) of 40.0 or higher Status: Chronic Plan/Intensity of Service 08/22/16 AFib RVR: Rate 100-110s. Somewhat dependent on patient's anxiety/ activity level. Reports some chest pain right>left. check troponin. Continue Coreg and Digoxin. Digoxin level in the am. Currently on warfarin, will need to be held when surgery and use Lovenox for coverage. Systolic CHF: EF 40% per Echo. Is short of breath with activity / anxiety. Will give Lasix 40mg IV daily for gentle diuresis. Avoid positive fluid balance, Follow lytes and Kidney function. HTN: Secondary to Thyrotoxicosis. Continue Coreg and Lisinopril and continue to monitor Thyrotoxicosis and DM: per Endocrine. 08/23/16 Start Xarelto 20mg daily, stop Lovenox. Change Lasix to oral 3/9/17 Xarelto 20mg daily for anticoagulation, samples provided Continue Lasix 40mg daily. Avoid positive fluid balance. Thank you for allowing us to participate in the care of this patient, we will follow along with you.AFib: Xarelto 20mg daily for anticoagulation, samples provided ANGELICA LAUREANO MD 09/04/16 1032: Assessment & Plan Plan/Intensity of Service After examining the patient I agree with the above assessment. I am involved in the formulation of the patient's plan of care. BLOSSOM BUNCH APRN Aug 24, 2016 12:56 ANGELICA LAUREANO MD Sep 04, 2016 10:32
--- NOTE | 2016-08-24 15:15 | PNPDOC ---
BLOSSOM BUNCH [employer]OLOGY [employer]IPMENT [employer]ICER 08/24/16 1509: Subjective Date DATE: 08/23/16 TIME: 8;35 Subjective Anne is up in her room, family is at the bedside. She states her breathing has improved only slightly. She is not currently having chest pain or palpitations. Objective Vital Signs Vital signs Vital Signs 08/24/16 08/24/16 08/24/16 08/24/16 08:47 09:04 09:37 12:08 Temp 95.6 Pulse 90 90 89 Resp 14 14 B/P 102/69 127/67 O2 Delivery Room Air 08/24/16 14:43 Pulse 92 Resp 14 Telemetry Rhythm: Atrial Fibrillation Height (Feet): 5 Height (Inches): 5.00 Weight (Kilograms): 124.300 General Alert, Orientated x 3, Cooperative, No Acute Distress ENMT (Brief) mucosa moist Neck (Brief) NOT FOUND: JVD, carotid bruits Respiratory (Brief) clear all bee, equal bilaterally, NOT FOUND: rales, wheezes Cardiovascular (Brief) regular rate, NOT FOUND: click, gallop, murmur, pedal edema, regular rhythm, rub Abdomen (Brief) BS normo active x4, soft Integumentary (Brief) dry, pink, warm Psychiatric (Brief) alert, attentive, oriented Laboratory Laboratory Laboratory Tests Test 08/22/16 17:56 08/23/16 05:18 08/23/16 12:00 08/23/16 17:11 Glucometer 245mg/dL 208mg/dL 184mg/dL White Blood Count 6.5T/MM3 Red Blood Count 4.71M/MM3 Hemoglobin 14.1GM/DL Hematocrit 42.3% Mean Corpuscular Volume 89.8UM3 Mean Corpuscular Hemoglobin 29.9UUG Mean Corpuscular Hemoglobin Concent 33.3GM/DL RDW Standard Deviation 40.8FL Platelet Count 127T/MM3 Mean Platelet Volume 12.4UM3 Immature Granulocyte % (Auto) 0.2% Neutrophils (%) (Auto) 61.7% Lymphocytes (%) (Auto) 28.0% Monocytes (%) (Auto) 7.0% Eosinophils (%) (Auto) 2.8% Basophils (%) (Auto) 0.3% Absolute Immature Granulocyte (auto 0.01T/MM3 Absolute Neutrophils (auto) 4.0T/MM3 Absolute Lymphocytes (auto) 1.8T/MM3 Absolute Monocytes (auto) 0.5T/MM3 Absolute Eosinophils (auto) 0.2T/MM3 Absolute Basophils (auto) 0.0T/MM3 Prothromb Time International Ratio 1.25 Turbidity < 20 Sodium Level 140MEQ/L Potassium Level 4.4MEQ/L Chloride Level 106MEQ/L Carbon Dioxide Level 26MEQ/L Anion Gap 8MEQ/L Blood Urea Nitrogen 20.0MG/DL Creatinine 0.5MG/DL Glomerular Filtration Rate Calc 131 BUN/Creatinine Ratio 40RATIO Glucose Level 222MG/DL Calculated Osmolality 279MOSM/KG Calcium Level 8.7MG/DL Magnesium Level 2.0MG/DL Icterus Index < 2 Chemistry Specimen Hemolysis < 15 Digoxin Level < 0.4NG/ML Test 08/23/16 21:47 08/24/16 04:32 08/24/16 05:50 08/24/16 11:00 Glucometer 307mg/dL 211mg/dL 251mg/dL White Blood Count 6.1T/MM3 Red Blood Count 4.57M/MM3 Hemoglobin 13.8GM/DL Hematocrit 41.3% Mean Corpuscular Volume 90.4UM3 Mean Corpuscular Hemoglobin 30.2UUG Mean Corpuscular Hemoglobin Concent 33.4GM/DL RDW Standard Deviation 40.5FL Platelet Count 136T/MM3 Mean Platelet Volume 12.5UM3 Immature Granulocyte % (Auto) 0.2% Neutrophils (%) (Auto) 56.4% Lymphocytes (%) (Auto) 32.5% Monocytes (%) (Auto) 7.0% Eosinophils (%) (Auto) 3.6% Basophils (%) (Auto) 0.3% Absolute Immature Granulocyte (auto 0.01T/MM3 Absolute Neutrophils (auto) 3.4T/MM3 Absolute Lymphocytes (auto) 2.0T/MM3 Absolute Monocytes (auto) 0.4T/MM3 Absolute Eosinophils (auto) 0.2T/MM3 Absolute Basophils (auto) 0.0T/MM3 Turbidity < 20 Sodium Level 139MEQ/L Potassium Level 3.9MEQ/L Chloride Level 105MEQ/L Carbon Dioxide Level 25MEQ/L Anion Gap 9MEQ/L Blood Urea Nitrogen 19.0MG/DL Creatinine 0.5MG/DL Glomerular Filtration Rate Calc 131 BUN/Creatinine Ratio 38RATIO Glucose Level 230MG/DL Calculated Osmolality 277MOSM/KG Calcium Level 8.5MG/DL Icterus Index < 2 Chemistry Specimen Hemolysis < 15 Laboratory Tests 08/24/16 04:32 Laboratory Tests 08/24/16 04:32 Medications Current Medications Sodium Chloride (Normal Saline IV) 1,000 ml @ 100 mls/hr Q10H IV Last administered on 08/22/16 02:13; Start 08/21/16 at 15:02; Stop 08/22/16 at 08:10; Status DC Acetaminophen (Tylenol Regular Strength) 1-2 tabs Q5H PRN PO PAIN; Start at 15:15 Ondansetron HCl (Zofran) 4 mg Q6H PRN IV NAUSEA &/OR VOMITING; Start 08/21/16 at 15:15 Magnesium Hydroxide (Mom) 30 ml DAILY PRN PO CONSTIPATION; Start 08/21/16 at 15: 15 Docusate Sodium (Colace) 100 mg BID PO Last administered on 08/24/16 09:37; Start 08/21/16 at 21:00 Digoxin (Lanoxin) 125 mcg DAILY PO Last administered on 08/24/16 09:37; Start 08/22/16 at 09:00 Acetaminophen/ Hydrocodone Bitart (Santee 5/325) 1 tab Q6-12H PRN PO PAIN Last administered on 08/23/16 19:45; Start 08/21/16 at 15:30 Lisinopril (Prinivil) 20 mg DAILY PO Last administered on 08/23/16 08:31; Start 08/22/16 at 09:00 Lorazepam (Ativan) 0.5 mg Q8H PRN IV Last administered on 08/23/16 19:46; Start 08/21/16 at 15:45 Propylthiouracil (Ptu) 100 mg Q6H PO Last administered on 08/24/16 12:06; Start 08/21/16 at 18:00 Glimepiride (Amaryl) 4 mg WB PO Last administered on 08/24/16 09:37; Start 08/23 at 08:00 Miscellaneous Medication (May use PRN orders) PRN PRN MC ; Start 08/22/16 at 16 :45 Bisacodyl (Dulcolax) 10 mg DAILY PRN RECTALLY CONSTIPATION; Start 08/22/16 at 16 :45 Al Hydroxide/Mg Hydroxide (Maalox) 30 ml Q3H PRN PO INDIGESTION Last administered on 08/22/16 21:46; Start 08/22/16 at 16:45 Nitroglycerin (Nitrostat) 0.4 mg Q5M PRN SL CHEST PAIN; Start 08/22/16 at 16:45 Warfarin Sodium (COUMADIN 3 mg) 3 mg O ONCE PO Last administered on 08/22/16 18:13; Start 08/22/16 at 17:30; Stop 08/22/16 at 17:31; Status DC Enoxaparin Sodium (Lovenox) 40 mg DAILY SQ Last administered on 08/23/16 08:31 ; Start 08/22/16 at 16:45; Stop 08/23/16 at 08:58; Status DC Influenza Virus Vaccine Quadrival (FLUARIX QIV Vac.) 0.5 ml O ONCE IM Last administered on 08/22/16 17:57; Start 08/22/16 at 17:00; Stop 08/22/16 at 17: 04; Status DC Potassium Iodide (Sski) 4 drop TIDWM PO Last administered on 08/24/16 09:36; Start 08/23/16 at 09:00; Stop 08/24/16 at 08:01; Status DC Rivaroxaban (Xarelto) 20 mg WS PO Last administered on 08/23/16 18:07; Start at 17:30 Carvedilol (Coreg) 12.5 mg O ONCE PO Last administered on 08/23/16 10:28; Start 08/23/16 at 09:15; Stop 08/23/16 at 09:16; Status DC Influenza Virus Vaccine (Flu Vaccine Admin Charge) 1 each STK-MED ONCE INJ ; Start 08/22/16 at 17:00; Stop 08/23/16 at 09:04; Status DC Furosemide (Lasix) 40 mg DAILY PO ; Start 08/23/16 at 10:00 Nicotine (Nicoderm) 7 mg DAILY TD Last administered on 08/24/16 09:36; Start at 12:45 Nicotine (Nicoderm Patch Removal) 1 removal DAILY TD Last administered on 09:36; Start 08/24/16 at 09:00 Bupropion HCl (Wellbutrin Sr) 100 mg BID PO Last administered on 08/24/16 09:37 ; Start 08/23/16 at 21:00 Sitagliptin Phosphate (Januvia) 100 mg ACB PO Last administered on 08/24/16 09: 39; Start 08/24/16 at 08:00 Assessment & Plan Problems: (1) Atrial fibrillation with rapid ventricular response Status: Acute Assessment & Plan: Xarelto 20mg daily for anticoagulation, stop Lovenox (2) Systolic CHF with reduced left ventricular function, NYHA class 3 Status: Chronic Assessment & Plan: Change Lasix 40mg daily to oral. Avoid positive fluid balance. (3) Thyrotoxicosis Status: Chronic Qualifiers: Thyrotoxicosis type: unspecified thyrotoxicosis type Assessment & Plan: per Endocrine (4) Hypertension Status: Chronic Qualifiers: Hypertension type: secondary to endocrine disorders Qualified Codes: I15.2 - Hypertension secondary to endocrine disorders Assessment & Plan: Secondary to Thyrotoxicosis. Continue Coreg and Lisinopril and continue to monitor (5) Diabetes type 2, uncontrolled Status: Chronic Qualifiers: Diabetes mellitus complication status: with hyperglycemia Assessment & Plan: per Endocrine (6) Morbid obesity with body mass index (BMI) of 40.0 or higher Status: Chronic Plan/Intensity of Service 08/22/16 AFib RVR: Rate 100-110s. Somewhat dependent on patient's anxiety/ activity level. Reports some chest pain right>left. check troponin. Continue Coreg and Digoxin. Digoxin level in the am. Currently on warfarin, will need to be held when surgery and use Lovenox for coverage. Systolic CHF: EF 40% per Echo. Is short of breath with activity / anxiety. Will give Lasix 40mg IV daily for gentle diuresis. Avoid positive fluid balance, Follow lytes and Kidney function. HTN: Secondary to Thyrotoxicosis. Continue Coreg and Lisinopril and continue to monitor Thyrotoxicosis and DM: per Endocrine. 08/23/16 Start Xarelto 20mg daily, stop Lovenox. Change Lasix to oral 08/24/16 Xarelto 20mg daily for anticoagulation, samples provided Continue Lasix 40mg daily. Avoid positive fluid balance. Thank you for allowing us to participate in the care of this patient, we will follow along with you.AFib: Xarelto 20mg daily for anticoagulation, samples provided ANGELICA LAUREANO MD 09/04/16 1033: Assessment & Plan Plan/Intensity of Service After examining the patient I agree with the above assessment. I am involved in the formulation of the patient's plan of care. BLOSSOM BUNCH APRN Aug 24, 2016 15:09 ANGELICA LAUREANO MD Sep 04, 2016 10:33
[2016-08-24] MEDS: RIVAROXABAN 20 MG TABLET PO SCH (17:12)
[2016-08-24] MEDS: HYDROCODONE/APAP 5 mg/325 mg TABLET PO PRN (17:13)
--- NOTE | 2016-08-24 19:01 | PNPDOC ---
Subjective Date DATE: 08/24/16 TIME: 18:53 Subjective F/U: Thyrotoxicosis Doing better today. Walking more. Less cravings to smoke. Breathing better. Less anxious overall (but still with anxiety at time). Fatigue is still an issue. Eating well. Bowel stable. Objective Vital Signs Vital signs Vital Signs Date Time Temp Pulse Resp B/P Pulse Ox O2 Delivery O2 Flow Rate FiO2 08/24/16 17:07 96.9 88 20 122/94 98 Room Air 08/24/16 03:06 21 Telemetry Rhythm: Atrial Fibrillation Height (Feet): 5 Height (Inches): 5.00 Weight (Kilograms): 124.300 General General Appearance: Alert, Obese, Orientated x 3, Well Nourished, Well Developed, Cooperative, Looks Stated Age Eyes (Brief) Eyes: FOUND: EOMI, PERRL, NOT FOUND: scleral icterus ENMT (Brief) ENMT: FOUND: hearing intact, mucosa moist Neck (Brief) Neck: FOUND: midline, NOT FOUND: nuchal rigidity, spasm Respiratory (Brief) Respiratory: FOUND: clear all bee, equal bilaterally, NOT FOUND: rales, wheezes Cardiovascular (Brief) Cardiac: FOUND: pedal edema (+2 ), NOT FOUND: regular rate (irregular ), regular rhythm (irregular ) Abdomen (Brief) Abdominal: FOUND: BS normo active x4, soft, NOT FOUND: distended, tender Extremities (Brief) Extremity : Side: Bilateral Extremity: leg Extremity Finding: FOUND: edema (+2 ) Musculoskeletal (Brief) Musculoskeletal: FOUND: extremities move equally, NOT FOUND: deformity, loss of motion, spasm, tenderness Integumentary (Brief) Integumentary: FOUND: dry, warm Neurologic (Brief) Neurological: FOUND: cranial 2-12 intact, motor (Intact ) Psychiatric (Brief) Psychiatric: FOUND: alert, attentive, normal affect, oriented Laboratory Laboratory Laboratory Tests 08/23/16 05:18 08/24/16 04:32 Laboratory Tests 08/23/16 05:18 08/24/16 04:32 Assessment & Plan Problems: (1) Thyrotoxicosis Status: Chronic Qualifiers: Thyrotoxicosis type: unspecified thyrotoxicosis type (2) Thyroid nodule Status: Chronic Assessment & Plan: Anticipate resection in near future. (3) Atrial fibrillation with rapid ventricular response Status: Acute (4) Systolic CHF with reduced left ventricular function, NYHA class 3 Status: Chronic (5) Diabetes type 2, uncontrolled Status: Chronic Qualifiers: Diabetes mellitus complication status: with hyperglycemia (6) Hypertension Status: Chronic Qualifiers: Hypertension type: secondary to endocrine disorders Qualified Codes: I15.2 - Hypertension secondary to endocrine disorders (7) Tobacco dependency Status: Chronic Assessment & Plan: Pt working on stopping smoking - About 1 pack per week currently. (8) Depression Status: Chronic Qualifiers: Depression Type: unspecified Qualified Codes: F32.9 - Major depressive disorder, single episode, unspecified (9) Anxiety Status: Chronic (10) Morbid obesity with body mass index (BMI) of 40.0 or higher Status: Chronic Plan/Intensity of Service Discussed case with Dr Lehman. SSKI completed, recommends continuing PTU. He was hoping to see better response to Amaryl and Januvia. If fasting sugars above 200 tomorrow am, would recommend stopping Januvia and starting Lantus 12 units at night. Continue with current cardiac medications. Wellbutrin started last evening - pt tolerating so far. Continue Lorazepam as needed for increased anxiety. Recheck BMP am secondary to lisinopril and Lasix use. Case discussed with CM and Dr Lehman. DVT Prophylaxis: Xarelto Code Status Full Code Hospital Course Summary Disclaimer The hospital course summary below is not to be considered part of the above Progress Note. Hospital Course Summary 3/7 Rough day-busy with imagine and lab draws. Feels very tired and worn out. Hard to be active. Does get winded and fatigued with activities. Not SOA at rest. No chest pain. Appetite decreased and variable. Anxious frequently-lorazepam helps , but tries to use minimally so as not to get to foggy. IVF d/c by Dr Lehman to decrease risk for volume overload. PTU initiated for thyrotoxicosis. Left thyroid lobectomy anticipate in near future. Dr Drummond consulted for evaluation and to help manage Afib (as well as for Sx clearance in near future). ECHO taken; result pending. Will initiate Lovenox and can restart Coumadin as Sx will be about 10 days in the future. Continue lorazepam to help with anxiety. Recheck BMP and Mg in am secondary to lisinopril and Lasix use. Recheck CBC in am to monitor blood counts in light of Lovenox and Coumadin use. Check INR in am due to Coumadin. 08/23 Up and down. Does feel breathing slightly improved-gets winded with activities, but not as pronounced. Not with cough or congestion. Seeing good urine output with Lasix (and less frequency-going more at once). Stress levels high-worries about potential cancer. Ativan is helping with anxiety. Has tried Lexapro in past, but not able to tolerate. Discussed about Wellbutrin as it may help mood and help decrease urge to smoke (smoking about a pack a week). Would like to try Nicotine patch to see if helps. Ambulating well - walking out in [place] frequently to help keep her from feeling 'cooped' up. Dr Lehman is continuing PTU and adding SSKI to help thyrotoxicosis. Will consult dietary education and have Diabetic education. Dr Drummond change Coumadin to Xarelto for anticoagulation due to Afib. Coreg increased to 25mg BIDWM. Continue lorazepam to help with anxiety. Discussed about starting Wellbutrin to help mood and smoking cessation. Start Nicotine patch 7mg daily to help decrease cravings to smoke. Recheck BMP am secondary to lisinopril and Lasix use. Recheck CBC in am to monitor blood counts in light of Xarelto use. 08/24 Doing better today. Walking more. Less cravings to smoke. Breathing better. Less anxious overall (but still with anxiety at time). Fatigue is still an issue. Eating well. Bowels stable. Discussed case with Dr Lehman. SSKI completed, recommends continuing PTU. He was hoping to see better response to Amaryl and Januvia. If fasting sugars above 200 tomorrow am, would recommend stopping Januvia and starting Lantus 12 units at night. Continue with current cardiac medications. Wellbutrin started last evening - pt tolerating so far. Continue Lorazepam as needed for increased anxiety. Recheck BMP am secondary to lisinopril and Lasix use. CHUYITA SIMMS MD Aug 24, 2016 19:00
[2016-08-24] MEDS: LORAZEPAM 2 MG/ML INJECTION IV PRN ×2 (20:33→21:05)
[2016-08-24] MEDS: MAG-AL + SIM LIQUID 30 ML UDC PO PRN (22:14)
[2016-08-25 00:20] VITALS: BP 117/74; PULSE 78; RESP 14; TEMP 96.7; O2SAT 99
[2016-08-25 05:28] LABS: ANION GAP 6 MEQ/L (5-15); BUN/CREATININE RATIO 38 RATIO (6-26); CHLORIDE 105 MEQ/L (98-107); CO2 - CARBON DIOXIDE 26 MEQ/L (22-30); CREATININE 0.5 MG/DL (0.7-1.2); GLOMERULAR FILTRATION RATE 131; GLUCOSE 142 MG/DL (65-110); POTASSIUM 4.3 MEQ/L (3.6-5); SODIUM 137 MEQ/L (134-144)
[2016-08-25] MEDS: SITAGLIPTIN 100 MG TABLET PO SCH (06:12)
[2016-08-25] MEDS: PROPYLTHIOURACIL 50 MG TABLET PO SCH ×2 (06:12→12:25)
[2016-08-25 07:39] VITALS: BP 102/66; PULSE 76; RESP 16; O2SAT 96
[2016-08-25] MEDS: NICOTINE 7 MG PATCH TD SCH (09:39)
[2016-08-25] MEDS: LISINOPRIL 20 MG TABLET PO SCH (09:39)
[2016-08-25] MEDS: NICOTINE PATCH REMOVAL TD SCH (09:39)
[2016-08-25] MEDS: BuPROPion SR (12 HR) 100 MG TABLET PO SCH (09:39)
[2016-08-25] MEDS: GLIMEPIRIDE 4 MG TABLET PO SCH (09:40)
[2016-08-25] MEDS: DIGOXIN 125 MCG TABLET PO SCH (09:40)
[2016-08-25] MEDS: FUROSEMIDE 40 MG TABLET PO SCH (09:40)
[2016-08-25] MEDS: CARVEDILOL 25 MG TABLET PO SCH (09:40)
[2016-08-25] MEDS: DOCUSATE SODIUM 100 MG CAPSULE PO SCH (09:40)
--- NOTE | 2016-08-25 12:18 | PNPDOC ---
Subjective Date DATE: 08/25/16 TIME: 12:07 Subjective F/U: Thyrotoxicosis Doing well today. Breathing stable. Not having chest pain. Ambulating well. Eating at baseline. No nausea. Feels ready to go home. Objective Vital Signs Vital signs Vital Signs Date Time Temp Pulse Resp B/P Pulse Ox O2 Delivery O2 Flow Rate FiO2 08/25/16 09:40 76 08/25/16 07:39 16 102/66 96 Room Air 08/25/16 03:14 21 08/25/16 00:20 96.7 Telemetry Rhythm: Atrial Fibrillation Height (Feet): 5 Height (Inches): 5.00 Weight (Kilograms): 124.100 General General Appearance: Alert, Obese, Orientated x 3, Well Nourished, Well Developed, Cooperative, No Acute Distress, Looks Stated Age Eyes (Brief) Eyes: FOUND: EOMI, PERRL, NOT FOUND: scleral icterus ENMT (Brief) ENMT: FOUND: hearing intact, mucosa moist Neck (Brief) Neck: FOUND: midline, NOT FOUND: nuchal rigidity, spasm Respiratory (Brief) Respiratory: FOUND: clear all bee, equal bilaterally, NOT FOUND: rales, wheezes Cardiovascular (Brief) Cardiac: FOUND: pedal edema (+2), NOT FOUND: regular rate (irregular ), regular rhythm (irregular ) Abdomen (Brief) Abdominal: FOUND: BS normo active x4, soft, NOT FOUND: distended, tender Extremities (Brief) Extremity : Side: Bilateral Extremity: leg Extremity Finding: FOUND: edema (+2 ) Musculoskeletal (Brief) Musculoskeletal: FOUND: extremities move equally, NOT FOUND: deformity, loss of motion, spasm, tenderness Integumentary (Brief) Integumentary: FOUND: dry, warm Neurologic (Brief) Neurological: FOUND: cranial 2-12 intact, motor (Intact ) Psychiatric (Brief) Psychiatric: FOUND: alert, attentive, normal affect, oriented Laboratory Laboratory Laboratory Tests 08/24/16 04:32 08/25/16 04:28 Laboratory Tests 08/24/16 04:32 Assessment & Plan Problems: (1) Thyrotoxicosis Status: Chronic Qualifiers: Thyrotoxicosis type: unspecified thyrotoxicosis type (2) Thyroid nodule Status: Chronic Assessment & Plan: Anticipate resection in near future. (3) Atrial fibrillation with rapid ventricular response Status: Acute (4) Systolic CHF with reduced left ventricular function, NYHA class 3 Status: Chronic (5) Diabetes type 2, uncontrolled Status: Chronic Qualifiers: Diabetes mellitus complication status: with hyperglycemia (6) Hypertension Status: Chronic Qualifiers: Hypertension type: secondary to endocrine disorders Qualified Codes: I15.2 - Hypertension secondary to endocrine disorders (7) Tobacco dependency Status: Chronic Assessment & Plan: Pt working on stopping smoking - About 1 pack per week currently. (8) Depression Status: Chronic Qualifiers: Depression Type: unspecified Qualified Codes: F32.9 - Major depressive disorder, single episode, unspecified (9) Anxiety Status: Chronic (10) GALLO treated with BiPAP Status: Chronic Assessment & Plan: Has BiPAP machine at home. (11) Morbid obesity with body mass index (BMI) of 40.0 or higher Status: Chronic Plan/Intensity of Service Will d/c to home - medically stable. Continue current diabetic medications (metformin stopped). Continue PTU. Continue current cardiac medications (Xarelto used in place of Coumadin). Wellbutrin and lorazepam to help mood. Will need to return on 09/04 for f/u with Dr Lehman and Chuckie for anticipated thyroidectomy on 09/05. Pt Not to take Xarelto on 09/04 in anticipation of Sx. F/U with Martina zamarripa in 1 week. May return to work on 08/28. Case discussed with Dr Noguera and EVERETT. See orders for details. DVT Prophylaxis: Xarelto Code Status Full Code Hospital Course Summary Disclaimer The hospital course summary below is not to be considered part of the above Progress Note. Hospital Course Summary 08/22 Rough day-busy with imagine and lab draws. Feels very tired and worn out. Hard to be active. Does get winded and fatigued with activities. Not SOA at rest. No chest pain. Appetite decreased and variable. Anxious frequently-lorazepam helps , but tries to use minimally so as not to get to foggy. IVF d/c by Dr Lehman to decrease risk for volume overload. PTU initiated for thyrotoxicosis. Left thyroid lobectomy anticipate in near future. Dr Drummond consulted for evaluation and to help manage Afib (as well as for Sx clearance in near future). ECHO taken; result pending. Will initiate Lovenox and can restart Coumadin as Sx will be about 10 days in the future. Continue lorazepam to help with anxiety. Recheck BMP and Mg in am secondary to lisinopril and Lasix use. Recheck CBC in am to monitor blood counts in light of Lovenox and Coumadin use. Check INR in am due to Coumadin. 08/23 Up and down. Does feel breathing slightly improved-gets winded with activities, but not as pronounced. Not with cough or congestion. Seeing good urine output with Lasix (and less frequency-going more at once). Stress levels high-worries about potential cancer. Ativan is helping with anxiety. Has tried Lexapro in past, but not able to tolerate. Discussed about Wellbutrin as it may help mood and help decrease urge to smoke (smoking about a pack a week). Would like to try Nicotine patch to see if helps. Ambulating well - walking out in [place] frequently to help keep her from feeling 'cooped' up. Dr Lehman is continuing PTU and adding SSKI to help thyrotoxicosis. Will consult dietary education and have Diabetic education. Dr Drummond change Coumadin to Xarelto for anticoagulation due to Afib. Coreg increased to 25mg BIDWM. Continue lorazepam to help with anxiety. Discussed about starting Wellbutrin to help mood and smoking cessation. Start Nicotine patch 7mg daily to help decrease cravings to smoke. Recheck BMP am secondary to lisinopril and Lasix use. Recheck CBC in am to monitor blood counts in light of Xarelto use. 08/24 Doing better today. Walking more. Less cravings to smoke. Breathing better. Less anxious overall (but still with anxiety at time). Fatigue is still an issue. Eating well. Bowels stable. Discussed case with Dr Lehman. SSKI completed, recommends continuing PTU. He was hoping to see better response to Amaryl and Januvia. If fasting sugars above 200 tomorrow am, would recommend stopping Januvia and starting Lantus 12 units at night. Continue with current cardiac medications. Wellbutrin started last evening - pt tolerating so far. Continue Lorazepam as needed for increased anxiety. Recheck BMP am secondary to lisinopril and Lasix use. 08/25 Doing well today. Breathing stable. Not having chest pain. Ambulating well. Eating at baseline. No nausea. Feels ready to go home. Will d/c to home - medically stable. Continue current diabetic medications (metformin stopped). Continue PTU. Continue current cardiac medications (Xarelto used in place of Coumadin). Wellbutrin and lorazepam to help mood. Will need to return on 09/04 for f/u with Dr Lehman and Chuckie for anticipated thyroidectomy on 09/05. Pt Not to take Xarelto on 09/04 in anticipation of Sx. F/U with Martina zamarripa in 1 week. May return to work on 08/28. CHUYITA SIMMS MD Aug 25, 2016 12:14
[2016-08-25] MEDS ORDERED: BUPR100T6 PO (12:22)
[2016-08-25] MEDS ORDERED: FURO40TA5 PO (12:22)
[2016-08-25] MEDS ORDERED: LORA0.5T2 PO (12:22)
[2016-08-25] MEDS ORDERED: PROP50TA3 PO (12:22)
[2016-08-25] MEDS ORDERED: SITA100T12 PO (12:22)
[2016-08-25] MEDS ORDERED: GLIM4TAB PO (12:22)
[2016-08-25] MEDS ORDERED: RIVA20TA PO (12:22)
[2016-08-25] MEDS ORDERED: CARV25TA PO (12:22)
--- NOTE | 2016-08-25 12:27 | PD.WORK ---
Work Release DATE: 08/25/16 TIME: 12:24 Work Release Excused for: Anne Villagran was hospitalized at [facility] from 08/21/16 until 08/25/16. She may return to work on 08/28/16. She will have a physician appointment in [place], [place] on 09/04/16 - anticipate surgical intervention on 09/05/16. Return to work after that time not definitive , but likely no earlier than 09/07. CHUYITA SIMMS MD Aug 25, 2016 12:27
[2016-08-25] MEDS: HYDROCODONE/APAP 5 mg/325 mg TABLET PO PRN (12:30)
--- NOTE | 2016-08-25 13:08 | PNPDOC ---
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 States feels much improved. Her anxiety now is concern that her insurance may not pay for new medications. She reports chronic headaches, denies increased symptoms. No vision changes, no fever chills night sweats. She denies chest pain or palpitations today. She is eating and drinking well. Normal voiding and normal stools. General: No fever, no night sweats Eyes: No redness, no pain, no diplopia ENT: No mouth sores, no trouble swallowing Cardiac: No chest pain no palpitations Pulmonary: No cough, no shortness of breath, no wheezing Abdomen: No pain, no nausea vomiting, no diarrhea or constipation : No urgency, frequency, dysuria, or hematuria Musculoskeletal: No arthritis, no myalgias Neurological: Chronic headaches. Denies worsening/increased headaches. no focal weakness Skin: No rash, no sores Psychiatric: Positive anxiety Objective Vital Signs Vital Signs 08/25/16 08/25/16 08/25/16 03:14 07:39 09:40 Pulse 76 76 Resp 16 B/P 102/66 Pulse Ox 96 O2 Delivery Spontaneous/Timed Room Air FiO2 21 Height (Feet): 5 Height (Inches): 5.00 Weight (Kilograms): 124.100 General Alert, Obese, Orientated x 3, No Acute Distress Eyes (Brief) Eyes: FOUND: PERRL, NOT FOUND: scleral icterus Neck (Brief) Neck: FOUND: thyroid nodule (left) Respiratory (Brief) Respiratory: FOUND: clear all bee, equal bilaterally, other (slightly diminished bilateral posterior.), NOT FOUND: wheezes Cardiovascular (Brief) Cardiac: FOUND: regular rhythm, NOT FOUND: pedal edema Abdomen (Brief) Abdominal: FOUND: BS normo active x4, soft, NOT FOUND: hepatosplenomegaly ( difficult to assess secondary to body habitus), tender Musculoskeletal (Brief) NOT FOUND: loss of motion, tenderness Neurologic (Brief) FOUND: cranial 2-12 intact, NOT FOUND: motor (no acute motor deficit) Psychiatric (Brief) FOUND: alert, attentive, normal affect, oriented Laboratory Laboratory Tests Test 08/24/16 17:06 08/24/16 21:05 08/25/16 04:28 08/25/16 06:14 Glucometer 155mg/dL 241mg/dL 131mg/dL Turbidity < 20 Sodium Level 137MEQ/L Potassium Level 4.3MEQ/L Chloride Level 105MEQ/L Carbon Dioxide Level 26MEQ/L Anion Gap 6MEQ/L Blood Urea Nitrogen 19.0MG/DL Creatinine 0.5MG/DL Glomerular Filtration Rate Calc 131 BUN/Creatinine Ratio 38RATIO Glucose Level 142MG/DL Calculated Osmolality 268MOSM/KG Calcium Level 9.0MG/DL Icterus Index < 2 Chemistry Specimen Hemolysis < 15 Test 08/25/16 11:08 Glucometer 265mg/dL Assessment & Plan Assessment 1. Thyroid toxicosis and hyperthyroidism, under care of endocrinology/Dr. Alvaro Lehman. Large left thyroid mass 2. History of congestive heart failure and atrial fibrillation, cardiac evaluation by Dr. Cardona. Currently on Digoxin and CoReg. 3. History of lung masses, prior right fine-needle aspiration negative for malignancy. Now with multiple right lung nodules. Plan/Intensity of Service Planning discharge to home today and has scheduled follow-up with endocrinology/ cardiology 09/04/16. Subjectively feeling improved. Reinforced positive thinking to patient. She is not certain meds will not be covered by her insurance. Patient states plans to stay quit smoking. Congratulated and encouraged in her quit attempt. Asked her to call the quit line. Follow-up with Dr. Sainz October 06 with CBC, CMP, LDH and magnesium. Orders put in chart. Patient has no questions. Code Status Full Code Hospital Course Summary Disclaimer The visit summary below is not to be considered part of the above Progress Note. Hospital Course Summary 3/7 Rough day-busy with imagine and lab draws. Feels very tired and worn out. Hard to be active. Does get winded and fatigued with activities. Not SOA at rest. No chest pain. Appetite decreased and variable. Anxious frequently-lorazepam helps , but tries to use minimally so as not to get to foggy. IVF d/c by Dr Lehman to decrease risk for volume overload. PTU initiated for thyrotoxicosis. Left thyroid lobectomy anticipate in near future. Dr Drummond consulted for evaluation and to help manage Afib (as well as for Sx clearance in near future). ECHO taken; result pending. Will initiate Lovenox and can restart Coumadin as Sx will be about 10 days in the future. Continue lorazepam to help with anxiety. Recheck BMP and Mg in am secondary to lisinopril and Lasix use. Recheck CBC in am to monitor blood counts in light of Lovenox and Coumadin use. Check INR in am due to Coumadin. 08/23 Up and down. Does feel breathing slightly improved-gets winded with activities, but not as pronounced. Not with cough or congestion. Seeing good urine output with Lasix (and less frequency-going more at once). Stress levels high-worries about potential cancer. Ativan is helping with anxiety. Has tried Lexapro in past, but not able to tolerate. Discussed about Wellbutrin as it may help mood and help decrease urge to smoke (smoking about a pack a week). Would like to try Nicotine patch to see if helps. Ambulating well - walking out in [place] frequently to help keep her from feeling 'cooped' up. Dr Lehman is continuing PTU and adding SSKI to help thyrotoxicosis. Will consult dietary education and have Diabetic education. Dr Drummond change Coumadin to Xarelto for anticoagulation due to Afib. Coreg increased to 25mg BIDWM. Continue lorazepam to help with anxiety. Discussed about starting Wellbutrin to help mood and smoking cessation. Start Nicotine patch 7mg daily to help decrease cravings to smoke. Recheck BMP am secondary to lisinopril and Lasix use. Recheck CBC in am to monitor blood counts in light of Xarelto use. 08/24 Doing better today. Walking more. Less cravings to smoke. Breathing better. Less anxious overall (but still with anxiety at time). Fatigue is still an issue. Eating well. Bowels stable. Discussed case with Dr Lehman. SSKI completed, recommends continuing PTU. He was hoping to see better response to Amaryl and Januvia. If fasting sugars above 200 tomorrow am, would recommend stopping Januvia and starting Lantus 12 units at night. Continue with current cardiac medications. Wellbutrin started last evening - pt tolerating so far. Continue Lorazepam as needed for increased anxiety. Recheck BMP am secondary to lisinopril and Lasix use. 08/25 Doing well today. Breathing stable. Not having chest pain. Ambulating well. Eating at baseline. No nausea. Feels ready to go home. Will d/c to home - medically stable. Continue current diabetic medications (metformin stopped). Continue PTU. Continue current cardiac medications (Xarelto used in place of Coumadin). Wellbutrin and lorazepam to help mood. Will need to return on 09/04 for f/u with Dr Lehman and Chuckie for anticipated thyroidectomy on 09/05. Pt Not to take Xarelto on 09/04 in anticipation of Sx. F/U with Martina Barba APRN locally in 1 week. May return to work on 08/28. CHAR SAINZ 08/25/16 1725: Objective Laboratory Item Value Date Time White Blood Count 6.1 T/MM3 08/24/16 0432 Hemoglobin 13.8 GM/DL 08/24/162 Platelet Count 136 T/MM3 08/24/16 0432 Creatinine 0.5 MG/DL L 08/24/16 0432 Blood Urea Nitrogen 19.0 MG/DL H 08/24/16 0432 Assessment & Plan Assessment Patient examined, chart reviewed, I participated development of plan of care of this patient with Valeria Booth. Agree with documentation. Follow-up with Dr. Lehman and Dr. Noguera on 09/04. I will see the patient back on 09/29/16. LUIS BOOTH APRN Aug 25, 2016 13:08 CHAR SAINZ Aug 25, 2016 17:25
--- NOTE | 2016-08-26 11:03 | DSF ---
ADMISSION DIAGNOSIS Thyrotoxicosis. DISCHARGE DIAGNOSIS Thyrotoxicosis. ASSOCIATED CONDITIONS AND COMPLICATIONS. 1. Chronic thyroid nodule--resection anticipated in the near future. 2. Atrial fibrillation with RVR--rate stabilized. 3. Chronic systolic heart failure. 4. Type 2 diabetes mellitus--uncontrolled. 5. Hypertension. 6. Tobacco dependency. 7. Depression. 8. Anxiety. 9. Obstructive sleep apnea treated with BiPAP. 10. Chronic anticoagulation with Coumadin--changed to Xarelto during hospitalization. 11. Morbid obesity with BMI 45.5. CONSULTS Dr. Lehman--Endocrinology. Dr. Drummond--Cardiology. Dr. Noguera--Surgery. Dr. Sainz--Oncology. Diabetic Education. Dietary Education. RT for tobacco cessation. PROCEDURES Echocardiogram: Technically difficult--global hypokinesis with EF of 40%. CLINICAL RESUME Patient is a 51-year-old female who was made direct admit to [facility] from Dr. Sainz's office secondary to symptomatic hyperthyroidism. She has been having atrial fibrillation with palpitations off and on for several weeks. She has not had overt chest pain in a few days now. She has been feeling more jittery, panicky, and tearful. She also notes she is having swelling in her feet. She believes that she has been taking her medications appropriately. Dr. Sainz was given information on the patient's thyroid mass, which shows multinodular lesion with hypervascularity. She has suppressed TSH, with free T4 within normal limits, and elevated free T3. She does have CHF with ejection fraction in the 30s. Additionally, she was found to have some questionable lung mass. In light of her thyrotoxicosis, Dr. Sainz was recommending admission for further evaluation and treatment. Hospitalist service was notified, and patient was subsequently placed in inpatient admission status at [facility] for further evaluation and treatment. Anticipated length of stay was thought to be greater than two midnights. For complete details of the H&P refer to that document. LABORATORY White blood count is 9.7, with hemoglobin 15.4, hematocrit 45.9, MCV 89.0, and platelets 156,000. Serum sodium is 142, potassium 4.6, chloride 107, CO2 21, BUN 17, with creatinine 0.7, GFR 89, and blood glucose 271. Magnesium is 1.8. Transaminases are unremarkable. Troponin I is less than 0.012. TSH is less than 0.02. Free T4 is elevated at 2.51, with free T3 elevated at 11.2. INR is 1.28 with PTT 29.3. Digoxin was less than 0.4. HOSPITAL COURSE Patient was placed in inpatient admission status at [facility] under the hospitalist service. We did consult with Dr. Lehman for endocrine evaluation of her diabetes and thyrotoxicosis. Dr. Noguera was consulted in light of her thyroid nodule for possibility of surgical removal. Dr. Drummond was consulted in light of her atrial fibrillation and RVR-- additionally, his consult was to make sure she would be medically clear for any surgical procedures in the near future. Dr. Sainz was consulted to follow along in light of her lung nodules. Cardiac telemetry was initiated. She did not have her BiPAP device up. We did utilize BiPAP from [facility]. Lab was monitored. Ativan was made available to help with her anxiety. Dr. Lehman did interview and examine the patient. In light of her thyrotoxicosis, he initiated propylthiouracil 100 mg p.o. every 6 hours. He also started Amaryl 2 mg with breakfast to help with diabetes. In light of her chronic systolic heart failure, he did recommend against metformin and this was not utilized during the hospitalization. Her hospital course was one of good improvement. In regards to her thyrotoxicosis, she did receive SSKI during the hospitalization, which should help shrink vascularity of the tumor. She will need to continue with propylthiouracil in the outpatient setting. Cardiology did make adjustments of her cardiac medications, continuing Coreg at 25 mg b.i.d. along with her home digoxin and lisinopril. Lasix was started during the hospitalization to facilitate diuresis and ultimately she was discharged to home on 40 mg oral Lasix daily. Her diabetes was addressed through insulin sliding scale and also increasing Amaryl and addition of Januvia. By time of discharge, fasting blood sugars were showing interval decrease, being 142 at time of discharge[address] Dr[address] Lehman is hopeful that we will be able to avoid insulin use in this patient. As surgical removal of thyroid nodule was not performed during the hospitalization, mainly due to likelihood of significant vascularity, Dr. Noguera is hoping to have patient return for an office visit on September 04 with anticipated surgery on the if she is doing well at that time. We did address anxiety through addition of Wellbutrin 100 mg b.i.d. It is hopeful that this medication will help not only her mood and anxiety but also provide tobacco cessation improvement. Ativan was well tolerated by patient during the hospitalization, and this will be continued in the outpatient setting--I did advise the patient on sparing use of this medication as there is potential for dependency and abuse. Anticoagulation will be changed to Xarelto. One rationale behind use of this is we will allow therapeutic anticoagulation in light of her atrial fibrillation up until right before surgery at which time it will be stopped. Her last dose of Xarelto will be the evening of September 03, holding it on September 04 anticipated surgery on September 05. Additionally, she did have diabetic education as well as dietary instruction. It is hopeful that with dietary and activity changes coupled with medication changes she will get good glycemic control. By time of discharge, she was eating and drinking well. Her vitals were stable, and she was afebrile. She is maintaining saturations in the 92% on room air. Sodium was 137, with potassium 4.3. Her creatinine was 0.9. Case Management did work on helping the patient cover cost of medications. Affordability of medication and health care has been a big struggle for this individual. With interval improvement, she was able to be discharged to home, with the thought that she will return on September 04 for reevaluation by Dr. Lehman and Dr. Noguera for potential thyroid removal the next day. NARRATIVE DISCLAIMER: Above narrative is a brief summary of the patient's hospitalization. For complete details of the hospital course, refer to the medical record. DISCHARGE CONDITION Stable/good. DIET 2000 kilocalorie ADA, low sodium. ACTIVITIES As tolerated. May return to work on 08/28/2016. MEDICATIONS 1. Coreg 25 mg p.o. b.i.d. with meals. 2. Furosemide 40 mg daily. 3. Lisinopril 20 mg daily. 4. Xarelto 20 mg daily with supper. 5. Nitroglycerin 0.4 mg sublingual p.r.n. chest pain. 6. Amaryl 4 mg b.i.d. with meals. 7. Januvia 100 mg a.c. breakfast. 8. Stop metformin. 9. Propylthiouracil 100 mg p.o. q.6h. 10. Wellbutrin SR 100 mg b.i.d. 11. Lorazepam 0.5 mg every 4 hours p.r.n. anxiety. 12. [place] 5/325 one q.4h. p.r.n. pain. 13. Stop warfarin. FOLLOWUP Patient will follow with Martina Yanez APRN, in one week for medical reevaluation. Patient will follow with Dr. Lehman and Dr. Noguera on 09/04/2016 for reevaluation for anticipated surgery on September 05. Patient will continue to follow with Dr. Sainz for oncological care. INSTRUCTIONS TO PATIENT Patient was instructed on her diagnoses and treatments provided. She received tobacco cessation information during the hospitalization. Additionally she received CHF instructions. She underwent diabetic education as well as dietary instruction regarding her diabetes. She was encouraged on healthy, well-rounded diabetic diet and activities. We advised less than 2 quarts of fluid a day. We encouraged her on daily weights. We stressed the importance of smoking cessation. Additionally we stressed the importance of medication adherence. Should problems or need occur, she will be in contact with her primary care provider. If symptoms become quite dire, she can present to the emergency room for acute evaluation. She voiced understanding of the above. Time spent with discharge greater than 35 minutes. VALENTÍN
== END 2016-08-25 17:00 | disposition home or self-care (01) | DRG 644 ==
LOC: MED 14:18
PROVIDERS: ADMIT Family Medicine; ATTEND Family Medicine
DX: E05.90 Thyrotoxicosis, unspecified without thyrotoxic crisis or storm (principal); I50.22 Chronic systolic (congestive) heart failure; Z68.42 Body mass index [BMI] 45.0-49.9, adult; I48.91 Unspecified atrial fibrillation; E11.65 Type 2 diabetes mellitus with hyperglycemia; I11.0 Hypertensive heart disease with heart failure; K21.9 Gastro-esophageal reflux disease without esophagitis; F41.9 Anxiety disorder, unspecified; E66.01 Morbid (severe) obesity due to excess calories; G47.33 Obstructive sleep apnea (adult) (pediatric); F32.9 Major depressive disorder, single episode, unspecified; Z79.01 Long term (current) use of anticoagulants; Z79.899 Other long term (current) drug therapy; Z87.891 Personal history of nicotine dependence
CPT/HCPCS: 36415; 80048; 80053; 80162; 82248; 82948; 83735; 84439; 84443; 84481; 84484; 85025; 85610; 85730; 90686; 93005; 93306; 94002; 94003; 99406

== ENCOUNTER → 2016-09-04 | Outpatient (CLI) | payer SELFPAY ==
[~2016-09-04] MED LIST: BUPR100T6 PO; CARV25TA PO; DIGO125T88 PO; FURO40TA5 PO; GLIM4TAB PO; HYDR-4246 PO; LISI-621 PO; LORA0.5T2 PO; NITR0.4T39 SL; OXYC5TAB84 PO; PROP50TA3 PO; RIVA20TA PO; SITA100T12 PO
[2016-09-04 17:49] LABS: ANION GAP 9 MEQ/L (5-15); BUN/CREATININE RATIO 34 RATIO (6-26); CALCIUM 9.3 MG/DL (8.4-10.2); CHLORIDE 110 MEQ/L (98-107); CO2 - CARBON DIOXIDE 23 MEQ/L (22-30); CREATININE 0.5 MG/DL (0.7-1.2); GLOMERULAR FILTRATION RATE 131; GLUCOSE 156 MG/DL (65-110); POTASSIUM 4.5 MEQ/L (3.6-5); SODIUM 142 MEQ/L (134-144)
[2016-09-04 18:20] LABS: THYROID STIM HORMONE-TSH < 0.02 MIU/L (0.47-4.68)
[2016-09-06 01:29] LABS: T3 FREE - BATCH 7.09 PG/ML (2.77-5.27)
[2016-09-06 01:30] LABS: FREE T4 (FREE THYROXINE)-BATCH 1.49 NG/DL (0.78-2.19)
== END ==
LOC: LAB 17:08
PROVIDERS: ATTEND Internal Medicine Endocrinology, Diabetes & Metabolism
DX: E11.65 Type 2 diabetes mellitus with hyperglycemia (principal); E05.90 Thyrotoxicosis, unspecified without thyrotoxic crisis or storm
CPT/HCPCS: 36415; 80048; 82985; 84439; 84443; 84481

== ENCOUNTER 2016-09-05 05:54 | Day surgery (SDC) | payer SELFPAY ==
[~2016-09-05] VITALS: Ht 165.1 cm; Wt 126.5 kg
[2016-09-05] VITALS (29 sets, daily range): BP systolic 104–142; BP diastolic 64–92; PULSE 60–108; RESP 11–20; TEMP 95.5–98.3; O2SAT 90–98; Ht 165.1 cm; Wt 126.5 kg
[~2016-09-05 05:54] MED LIST changes: -OXYC5TAB84 PO
--- OUTSIDE RECORDS SUMMARY | 2016-09-05 05:57 | XMS REPORT | Continuity of Care Document ---
Author Author [facility] Organization [facility] Address Unknown Phone Unavailable Support Name Relationship Address Phone SAL KENDALL MD Caregiver [address] [place] [phone] Unavailable SAL KENDALL MD Caregiver [address] [place] [address] Unavailable [employer] Next Of Kin [address] [place] [address] Insurance Providers Guarantor Anne Leary Address [address] [place] [address] Email DENIED 16 Payer Self Pay Subscriber's Name Anne Leary Relationship 18 Self Advance Directives Directive Response Recorded Date/Time Ordered Resuscitation Status Full Code 08/21/16 3:08pm Resuscitation Documents on File No 08/21/16 2:36pm DPOA for Healthcare Only Y Dawn Springer 08/22/16 3:39pm Living Will Yes 08/21/16 2:36pm Problems Active Problems Medical Problem Onset Date Status Anxiety Unknown Chronic Atrial fibrillation with rapid ventricular response Unknown Acute Depression Unknown Chronic Diabetes type 2, uncontrolled Unknown Chronic Hypertension Unknown Chronic Hyperthyroidism Unknown Morbid obesity with body mass index (BMI) of 40.0 or higher Unknown Chronic Nontoxic thyroid nodule Unknown GALLO treated with BiPAP Unknown Chronic Systolic CHF with reduced left ventricular function, NYHA class 3 Unknown Chronic Thyroid nodule Unknown Chronic Thyroid nodule, hot Unknown Thyrotoxicosis Unknown Chronic Tobacco dependency Unknown Chronic Medications Current Home Medications Medication Dose Units Route Directions Days Qty Instructions Start Date Bupropion Hcl (Bupropion Hcl Sr) 100 Mg Tablet.er 100 Mg Oral Twice A Day 60 Tablet 08/25/16 Carvedilol (Coreg) 25 Mg Tablet 25 Mg Oral Twice Daily With Meals 60 Tablet 08/25/16 Digoxin 125 Mcg Tablet 1 Tab Oral Daily 08/21/16 Furosemide 40 Mg Tablet 40 Mg Oral Daily 30 Tablet 08/25/16 Glimepiride (Amaryl) 4 Mg Tablet 4 Mg Oral Twice A Day Breakfast & Supper for Diabetes 60 Tablet 08/25/16 Hydrocodone/Acetaminophen ([place] 5-325 Tablet) 5-325 Tablet 1 Tab Oral Every 4 Hours Prn 08/21/16 Lisinopril 20 Mg Tablet 20 Mg Oral Daily for Hypertension Lorazepam 0.5 Mg Tablet 0.5 Mg Oral Every 4 Hours as needed for Anxiety 30 Tablet 08/25/16 Nitroglycerin 0.4 Mg Tab.subl 0.4 Mg Sublingual as needed for Chest Tightness 08/21/16 Propylthiouracil 50 Mg Tablet 100 Mg Oral Every 6 Hours for Hyperthyroidism 120 Tablet 08/25/16 Rivaroxaban (Xarelto) 20 Mg Tablet 20 Mg Oral Give With Supper for Afib- Blood Thinning 30 Tablet 08/25/16 Sitagliptin Phosphate (Januvia) 100 Mg Tablet 100 Mg Oral Before Breakfast for Diabetes 30 Tablet 08/25/16 Past Home Medications Medication Directions Ordered Status Carvedilol 12.5 Mg Tablet, 1 Tab Oral Twice Daily With Meals 08/21/16 Discontinued Metformin Hcl 500 Mg Tablet, 500 Mg Oral Twice Daily With Meals 08/21/16 Discontinued Warfarin Sodium 3 Mg Tablet, 1 Tab Oral Daily 08/21/16 Discontinued Social History Social History Problem Response Recorded Date/Time Onset Date Status Reason for Hospitalization Thyrotoxicosis 08/25/2016 1:50pm Not Applicable Not Applicable Has the pt used tobacco in the last 12 months Yes 08/21/2016 2:38pm Not Applicable Not Applicable [facility]ment [facility] [place] Call Patient Fax'd 08/25/2016 1:50pm Not Applicable Not Applicable Query Response Start Date Stop Date Smoking Status Former smoker Hospital Discharge Instructions Instructions: Care Instructions: Reason for Hospitalization: Thyrotoxicosis I was in the hospital because (patient own words): thyroid mass that's big Discharge Diet: 2000 KCAL ADA low sodium; may have up to 2 quarts fluid a day Discharge Activity: As tolerated. May return to work on 08/28. Follow Up Appointments: APPOITMENT WITH [facility] AT 9AM 08/[address] Noguera 09/04/[address] Lehman 09/04/16 APPOITMENT TIME 1PM [facility] Appointment - [facility] Will Call Patient: Fax'd Pending Lab / Results: No Pending Lab Patient Instructions: Daily weight. Monitor blood sugars. Wound/Incision Care: n/a Durable Medical Equipment: Continue BiPAP at night. Pain Scale Utilized to Educate Patient: 0-10 Pain Scale Pain Management/Treatment: Tylenol as needed Expected Signs/Symptoms: Improvement of Breathing and functional status. Decreasing anxiety. Notify Physician If: Temp >100.4. Chest pain or palpitations. Worsening shortness of air. Increasing weight/swelling of legs. During Business Hours:: Please call the physician's office at After Business Hours:: Please call [phone] and have the hydraulic rock drill operator page the physician. Condition at time of discharge: Good Plan of Care Discharge Date 08/25/16 5:00pm Disposition 01 DISCHARGED HOME, SELF-CARE Instructions/Education Provided [facility] Congestive Heart Failure Hyperthyroidism (ED) Prescriptions See Medication Section Additional Instructions/Education Use Xarelto in place of Coumadin - STOP Coumadin. Do NOT take Xarelto on 09/04 - Sx the next day. Stop Metformin. Care Plan and Goals See Discharge Instructions Section Functional Status Query Response Date Recorded Mobility Status Ambulatory August 25, 2016 1:50pm Assistive Devices None August 25, 2016 1:50pm Activity Limitations None August 25, 2016 1:50pm Feeding Ability Independent August 25, 2016 1:50pm Toileting Ability Independent August 25, 2016 1:50pm Grooming Ability Independent August 25, 2016 1:50pm Dressing Ability Independent August 25, 2016 1:50pm Driving Ability Independent August 25, 2016 1:50pm Housework Ability Independent August 25, 2016 1:50pm Meal Preparation Ability Independent August 25, 2016 1:50pm Stair Climbing Ability Independent August 25, 2016 1:50pm Ability to complete ADL's impeded by No change August 25, 2016 1:50pm Cognitive/Perceptual Impairments None August 25, 2016 1:50pm Allergies, Adverse Reactions, Alerts Allergen Type Severity Reaction Status Last Updated Doxycycline Allergy Severe HIVES Active 08/21/16 Immunizations Immunization Event Date Type Not Given Reason Dose Number Lot Number Demurrage Agent VIS Given Influenza, seasonal, injectable 08/22/16 Administered 1 [id number] [employer] 01/22/15 Query Response on File Recorded Date/Time Hx Influenza Vaccination Y fall 201408/21/16 2:38pm Hx Pneumococcal Vaccination Y fall 201408/21/16 2:38pm Hx Influenza Vaccination Y fall 201408/21/16 2:38pm Influenza Vaccine Hx 08/22/16 08/22/16 5:57pm Vital Signs Acute Vital Signs Vital Response Date/Time Temperature (Fahrenheit) 96.7 deg F (96.8 - 99.1) 08/25/2016 12:20am Temperature (Calculated Celsius) 35.61168 degrees C (36.0 - 37.3) 08/25/2016 12:20am Pulse Rate (adult) 76 bpm (60 - 100) 08/25/2016 7:39am Respiratory Rate 16 breaths/min (10 - 20) 08/25/2016 7:39am O2 Sat by Pulse Oximetry 96 % (90 - 100) 08/25/2016 7:39am Oxygen Delivery Method Room Air 08/25/2016 7:39am Fraction of Inspired Oxygen (FIO2) 21 % 08/25/2016 3:14am Blood Pressure 102/66 mm Hg 08/25/2016 7:39am Blood Pressure Source Automatic Cuff 08/25/2016 7:39am Height (Feet) 5 feet 08/25/2016 12:18pm Height (Inches) 5.00 inches 08/25/2016 12:18pm Weight (Kilograms) 124.100 kg 08/25/2016 7:41am Body Mass Index (BMI) 46.2 08/21/2016 2:52pm Results Laboratory Results Test Name Result Units Flags Reference Collection Date/Time Result Date/ Time Comments Lactate Dehydrogenase 449 U/L 313-618 08/09/2016 4:46pm 08/09/2016 5: 01pm Thyroid Stimulating Hormone (TSH) < 0.02 MIU/L L 0.47-4.68 08/09/2016 4: 46pm 08/09/2016 5:30pm Thyrotropin Receptor Antibody <1.00 IU/L 08/09/2016 4:46pm 2016 6:26pm Reference Range: 0.00 - 1.75 ADDITIONAL INFORMATION At a decision limit of 1.75 IU/L, this assay has 97% sensitivity and 99% specificity for detection of Graves' disease. In healthy individuals and in patients with thyroid disease without diagnosis of Graves' disease, the upper limit of anti-TSHR values are 1.22 IU/L and 1.58 IU/L, respectively (97.5th percentiles). Test Performed by: [place] [id number] [employer] Tube Tester: Manuel Ryan II, M.D., Ph.D. Thyrotropin [place] [address] Early Learning Teacher Shelby Johnston MD White Blood Count 6.1 T/MM3 4.5-11.0 08/24/2016 4:32am 08/24/2016 5: 36am Red Blood Count 4.57 M/MM3 4.00-5.20 08/24/2016 4:3208/24/2016 5: 36am Hemoglobin 13.8 GM/DL 12-16 08/24/2016 4:3208/24/2016 5:36am Hematocrit 41.3 % 36-46 08/24/2016 4:3208/24/2016 5:36am Mean Corpuscular Volume 90.4 UM3 80-100 08/24/2016 4:3208/24/2016 5: 36am Mean Corpuscular Hemoglobin 30.2 UUG 26-34 08/24/2016 4:322016 5:36am Mean Corpuscular Hemoglobin Concent 33.4 GM/DL 31-37 08/24/2016 4:3208/24/2016 5:36am RDW Standard Deviation 40.5 FL 36.9-50.2 08/24/2016 4:3208/24/2016 5 :36am Platelet Count 136 T/MM3 130-400 08/24/2016 4:3208/24/2016 5:36am Mean Platelet Volume 12.5 UM3 H 9.4-12.4 08/24/2016 4:3208/24/2016 5: 36am Neutrophils (%) (Auto) 56.4 % 33-66 08/24/2016 4:32am 08/24/2016 5: 36am Lymphocytes (%) (Auto) 32.5 % 23-45 08/24/2016 4:3208/24/2016 5: 36am Monocytes (%) (Auto) 7.0 % 0-9.0 08/24/2016 4:32am 08/24/2016 5:36am Eosinophils (%) (Auto) 3.6 % 0-4 08/24/2016 4:3208/24/2016 5:36am Basophils (%) (Auto) 0.3 % 0-2 08/24/2016 4:3208/24/2016 5:36am Immature Granulocyte % (Auto) 0.2 % 0.0-0.5 08/24/2016 4:2016 5:36am Absolute Neutrophils (auto) 3.4 T/MM3 1.8-7.7 08/24/2016 4:322016 5:36am Absolute Lymphocytes (auto) 2.0 T/MM3 1-4.8 08/24/2016 4:322016 5:36am Absolute Monocytes (auto) 0.4 T/MM3 0-0.8 08/24/2016 4:3208/24/2016 5:36am Absolute Eosinophils (auto) 0.2 T/MM3 0-0.5 08/24/2016 4:32am 2016 5:36am Absolute Basophils (auto) 0.0 T/MM3 0-0.2 08/24/2016 4:32am 08/24/2016 5:36am Absolute Immature Granulocyte (auto 0.01 T/MM3 0.00-0.03 08/24/2016 4: 32am 08/24/2016 5:36am Prothromb Time International Ratio 1.25 H 0.76-1.04 08/23/2016 5:18am 08/23/2016 5:33am THERAPUTIC RANGE=2.00-3.00 FOR ANTI-THROMBOSIS THERAPUTIC RANGE=2.50-3.50 FOR IMPLANTED VALVE Activated Partial Thromboplast Time 29.3 SEC 24-36 08/21/2016 4:09pm 4:52pm Icterus Index < 2 0-7 08/25/2016 4:28am 08/25/2016 5:28am Chemistry Specimen Hemolysis < 15 0-25 08/25/2016 4:28am 08/25/2016 5 :28am 0-25: Specimen Exhibited No Hemolysis. Turbidity < 20 0-20 08/25/2016 4:2808/25/2016 5:28am Sodium Level 137 MEQ/L 134-144 08/25/2016 4:2808/25/2016 5:28am Potassium Level 4.3 MEQ/L 3.6-5 08/25/2016 4:2808/25/2016 5:28am Chloride Level 105 MEQ/L 98-107 08/25/2016 4:2808/25/2016 5:28am Carbon Dioxide Level 26 MEQ/L 22-30 08/25/2016 4:2808/25/2016 5: 28am Anion Gap 6 MEQ/L 5-15 08/25/2016 4:2808/25/2016 5:28am Blood Urea Nitrogen 19.0 MG/DL H 7-17 08/25/2016 4:2808/25/2016 5: 28am Creatinine 0.5 MG/DL L 0.7-1.2 08/25/2016 4:2808/25/2016 5:28am BUN/Creatinine Ratio 38 RATIO H 6-26 08/25/2016 4:2808/25/2016 5: 28am Glomerular Filtration Rate Calc 131 08/25/2016 4:2808/25/2016 5: 28am Glucose Level 142 MG/DL H 65-110 08/25/2016 4:2808/25/2016 5:28am Calculated Osmolality 268 MOSM/KG 261-280 08/25/2016 4:2808/25/2016 5:28am Calcium Level 9.0 MG/DL 8.4-10.2 08/25/2016 4:2808/25/2016 5:28am Total Bilirubin 1.20 MG/DL 0.20-1.30 08/21/2016 3:48pm 08/21/2016 4: 09pm Unconjugated Bilirubin 0.60 MG/DL 0.00-1.10 08/21/2016 3:48pm 2016 4:09pm Conjugated Bilirubin 0.00 MG/DL 0.00-0.30 08/21/2016 3:48pm 08/21/2016 4:09pm Alkaline Phosphatase 228 U/L H 38-126 08/21/2016 3:48pm 08/21/2016 4: 09pm Total Protein 7.5 G/DL 6.3-8.2 08/21/2016 3:48pm 08/21/2016 4:09pm Albumin 3.9 G/DL 3.5-5.0 08/21/2016 3:48pm 08/21/2016 4:09pm Globulin 3.6 G/DL 2.4-3.6 08/21/2016 3:48pm 08/21/2016 4:09pm Albumin/Globulin Ratio 1.1 RATIO 1.1-2.2 08/21/2016 3:48pm 08/21/2016 4 :09pm Aspartate Amino Transf (AST/SGOT) 36 U/L 14-36 08/21/2016 3:48pm 2016 4:09pm Alanine Aminotransferase (ALT/SGPT) 47 U/L 9-52 08/21/2016 3:48pm 08/21 4:09pm Troponin I < 0.012 ng/ml 0-0.12 08/22/2016 1:19pm 08/22/2016 2:26pm Troponin values with a difference of 55% increase from orginal troponin value represent a true biological DELTA value. (%increase Calc=Orginal Troponin value, divided by subsequent Troponin value, multiplied by 100) Magnesium Level 2.0 MG/DL 1.6-2.3 08/23/2016 5:18am 08/23/2016 5:48am Digoxin Level < 0.4 NG/ML L 0.8-2.0 08/23/2016 5:18am 08/23/2016 6:19am Free Thyroxine 2.51 NG/DL H 0.78-2.19 08/21/2016 4:38pm 08/23/2016 1: 04am Free Triiodothyronine 11.20 PG/ML H 2.77-5.27 08/21/2016 3:48pm 2016 1:07am Thyroid Stimulating Hormone (TSH) < 0.02 MIU/L L 0.47-4.68 08/21/2016 3: 48pm 08/21/2016 4:38pm Glucometer 265 mg/dL H 65-110 08/25/2016 11:08am 08/25/2016 11:10am Name: ANNE LEARY Unit #: [id number] : 1965 Sex: F Admit Date: 08/21/16 Loc / Svc: MED Discharge Date: DIAGNOSTIC IMAGING REPORT Report #: [id number] [facility] ADRIANNA Motta Indication: ITS.REASON: Thyroid mass known, ? lung masses PROCEDURE: CT CHEST W/O CONTRAST: Encounter: Initial Comparison: None Technique: Axial CT images were performed through the chest without intravenous contrast. Coronal and sagittal two-dimensional reformats. Automated Exposure Control and Iterative Reconstruction dose reducing techniques were utilized. Findings: Lung window review demonstrates scattered solid nodular or semisolid foci in the right lung; the largest peripherally is pleural-based measuring 14.8 x 8.6 mm in the anterior aspect of the right upper lobe on axial image 30 of 86. Additional smaller nodular foci are seen, including a right upper lobe prehilar nodule of 5.6 mm on axial image 32 of 86. Additional somewhat more linear fibrotic-appearing regions are seen. There is mild mediastinal lymphadenopathy. Precarinal lymph node short axis dimension of 15.2 mm and several small left prevascular lymph nodes are seen. Subcarinal lymph node short axis dimension of 19.6 mm. No definite hilar contour abnormality. Heart and pericardium demonstrates no pericardial effusion. Mild coronary artery calcification. Minimal aortic atherosclerosis. Significant enlargement of the left thyroidal lobe. Lack of contrast limits its assessment. Pleural spaces are clear. Upper abdomen demonstrates no adrenal mass effect. Bone window review demonstrates degenerative spondylitis but no aggressive abnormality. Impression: 1. Multiple nodular foci in the right lung. If there are any prior studies for direct comparison, this would be of benefit. In the absence of such, follow-up in three months recommended if a high risk patient. 2. Mild mediastinal lymphadenopathy. 3. Thyromegaly in regards to the left thyroidal lobe. This could be on the basis of mass effect or diffuse asymmetric enlargement. 4. Coronary artery disease and aortic atherosclerosis. . Procedures No known history of procedures. Encounters Encounter Location Arrival/Admit Date Discharge/Depart Date Attending Provider Discharged Inpatient [facility] 08/21/16 2:18pm 08/25/16 5:00pm SAL KENDALL MD [facility] 08/21/16 11:22am CHAR LAZARO [facility] 08/09/16 4:30pm CHAR LAZARO
--- OUTSIDE RECORDS SUMMARY | 2016-09-05 05:58 | XMS REPORT | Continuity of Care Document ---
Author Author [facility] Address Unknown Phone Unavailable Allergies Active Description Code Type Severity Reaction Onset Reported/Identified Relationship to Patient Clinical Status Yes doxycycline [id number] Drug Allergy Mild RASH 03/09/2016 Medications Problems [...] 05/21/2015 Riki Zenia L OT I42.8 05/21/2015 Riik Zenia L OT I42.9 05/21/2015 Riki Zenia L OT I48.91 05/21/2015 Riki Zenia L OT I48.92 05/21/2015 Riki Zenia L OT I50.23 05/21/2015 Riki Zenia L OT J18.9 05/21/2015 Riki Zenia L OT J44.9 05/21/2015 Riki Zenia L OT J96.01 05/21/2015 Riki Zenia L OT K70.40 05/21/2015 Riki Zneia L OT Z68.41 05/21/2015 Barbie Lynra L [...] NARAYANAN, Gabby D OT M54.9 01/27/2016 Roberta NARAAYNAN, Gabby D OT E04.1 01/27/2016 Roberta NARAYANAN, [...] NARAYANAN, Gabby D OT E04.1 01/31/2016 Roberta NARYAANAN, Gabby D OT M54.9 01/31/2016 Roberta NARAYANAN, [...] NARAYANAN, Hal Mcdonnell OT E78.2 04/26/2016 Palmer ANRAYANAN, Hal Mcdonnell OT I10 04/26/2016 Palmer NARAYANAN, Hal Mcdonnell OT I48.2 04/26/2016 Palmer NARAYANAN, Hal Mcdonnell OT R06.02 05/02/2016 Palmer NRAAYANAN, Hal Mcdonnell OT E11.9 05/02/2016 Palmer NARAYANAN, [...] Palmer NARAYANAN, Hal Mcdonnell OT I10 05/02/2016 Palemr NARAYANAN, Hal Mcdonnell OT I48.2 05/02/2016 Palmer [...] Mcdonnell OT R06.02 05/02/2016 Palmer NARAYANAN, Hal Mcdonenll OT E11.9 05/02/2016 Palmer NARAYANAN, Hal Mcdonnell [...] Hal Mcdonnell OT E78.2 05/02/2016 Palmer NARAYANAN, Hla Mcdonnell OT I10 05/02/2016 Palmer NARAYANAN, Hal [...] Status Pt. Type Provider Facility Loc./Unit Complaint [id number] 05/23/2016 06:12:00 2015 12:10:00 [facility]IOVASC[facility] [id number] 05/02/2016 10:25:00 2015 16:24:00 DIS Outpatient Palmer NARAYANAN, [facility] KCNUC TYPE 2 DIABETES MELLITUS WITHOUT COMPLICATIONS [id number] 03/09/2016 19:22:00 2015 23:03:00 DIS Emergency Renetta NARAYANAN, [facility] KC NECK PAIN [id number] 01/27/2016 13:25:00 2015 15:57:00 DIS Outpatient Roberta NARAYANAN, [facility] KCUS NONTOXIC SINGLE THYROID NODULE/L THYROID [id number] 01/25/2016 08:21:00 2015 11:36:00 DIS Outpatient Roberta NARAYANAN, [facility] KCUS UNSPECIFIED ATRIAL FIBRILLATION [id number] 05/14/2015 11:52:00 2014 17:51:00 DIS Inpatient Zenia Lyn [facility]2B DIFF BREATHING [id number] 03/30/2015 12:52:00 2014 15:45:00 DIS Inpatient Garner, [facility] KC2B LT THYROIDMESS PLEURAL EFFUSION ACITIS [id number] 08/17/2016 09:37:00 PEN Preadmit Alistair NARAYANAN, David [facility] [place]CRAD[place] [facility] [id number] 07/03/2016 10:10:00 PEN Preadmit Palmer NARAYANAN, [facility] OFFICE [id number] 05/19/2016 08:39:00 PEN Preadmit Palmer NARAYANAN, [facility] KCLAB LAB [id number] 04/24/2016 10:18:00 ACT Outpatient Palmer NARAYANAN, [facility] OFFICE [id number] 04/13/2016 10:28:00 ACT Outpatient Roberta NARAYANAN, [facility] OFFICE [id number] 02/15/2016 09:30:00 PEN Preadmit Roberta NARAYANAN, [facility] KCNUC UNSPECIFIED ABDOMINAL PAIN [id number] 01/31/2016 07:02:00 [facility]TOXIC SINGLE THYROID NODULE [id number] 01/22/2016 08:35:00 ACT [facility], UNSPECIFIED [id number] 01/20/2016 08:00:00 PEN Preadmit Roberta NARAYANAN, [facility] KCCT NONTOXIC SINGLE THYROID NODULE [id number] 01/13/2016 16:31:00 ACT Outpatient Roberta NARAYANAN, [facility] OFFICE [id number] 06/15/2015 14:15:00 PEN Preadmit Chandu NARAYANAN, Manuel [place] [facility] OFFICE
[2016-09-05 06:51] LABS: ANION GAP 11 MEQ/L (5-15); BUN/CREATININE RATIO 27 RATIO (6-26); CALCIUM 9.4 MG/DL (8.4-10.2); CHLORIDE 110 MEQ/L (98-107); CO2 - CARBON DIOXIDE 22 MEQ/L (22-30); CREATININE 0.6 MG/DL (0.7-1.2); GLOMERULAR FILTRATION RATE 106; GLUCOSE 177 MG/DL (65-110); POTASSIUM 4.3 MEQ/L (3.6-5); SODIUM 143 MEQ/L (134-144)
[2016-09-05] MEDS ORDERED: BUPIVACAINE 0.25% (2.5mg/ml) INJ 30ml SDV ONE ×2 (06:59→07:13)
[2016-09-05] MEDS ORDERED: LR 1,000 ML IV PRN (07:00)
[2016-09-05] MEDS ORDERED: LIDOCAINE 1% (10mg/ml) 2ml SDV INJ ONE (07:00)
[2016-09-05] MEDS ORDERED: MIDAZOLAM 2mg/2ml INJECTION IV ONE (07:15)
--- NOTE | 2016-09-05 07:17 | ANESPREOP ---
Anesthesia Record Date and Time DATE: 09/05/16 TIME: 07:14 Pre-Op Diagnosis thyroid noduel Proposed Surgical Procedure left thyroid lobectomy Allergies: Coded Allergies: doxycycline (Verified Allergy, Severe, HIVES, 09/05/16) Ht/Wt/BMI Height: 5 ' 5.00 " Weight: 123.600 kg BMI: 45.3 kg/m2 Vital Signs Date Time Temp Pulse Resp B/P Pulse Ox O2 Delivery O2 Flow Rate FiO2 09/05/16 06:10 97.7 87 16 134/91 97 Room Air Medications Inpatient Medications Current Medications Medications (Trade) Dose Ordered Sig/Agustina Start Time Stop Time Status Last Admin Dose Admin Lactated Ringer's (Lactated Ringers) 1,000 ml @ 50 mls/hr Q20H PRN 09/05/16 07:00 09/05/16 06:49 50 MLS/HR Bupropion HCl (Bupropion HCl Sr) 100 Mg Tablet.er, 100 MG PO BID Last Taken: on 09/05/16 0500 Carvedilol (Coreg) 25 Mg Tablet, 25 MG PO BIDWM Last Taken: on 09/05/16 0500 Digoxin (Digoxin) 125 Mcg Tablet, 1 TAB PO DAILY, (Reported) Last Taken: on 09/05/16 0500 Furosemide (Furosemide) 40 Mg Tablet, 40 MG PO DAILY Last Taken: on 09/04/16 1400 Glimepiride (Amaryl) 4 Mg Tablet, 4 MG PO BIDBS Last Taken: on 09/04/16 0700 Hydrocodone/Acetaminophen ([place] 5-325 Tablet) 5-325 Tablet, 1 TAB PO Q4HPRN, (Reported) Last Taken: on Unknown Date & Time Lisinopril (Lisinopril) 20 Mg Tablet, 20 MG PO DAILY, (Reported) Last Taken: on 09/04/16 0700 Lorazepam (Lorazepam) 0.5 Mg Tablet, 0.5 MG PO Q4HR PRN for ANXIETY Last Taken: on Unknown Date & Time Nitroglycerin (Nitroglycerin) 0.4 Mg Tab.subl, 0.4 MG SL for CHEST TIGHTNESS, (Reported) Last Taken: on Unknown Date & Time Propylthiouracil (Propylthiouracil) 50 Mg Tablet, 100 MG PO Q6H Last Taken: on 09/05/16 0500 Rivaroxaban (Xarelto) 20 Mg Tablet, 20 MG PO WS Last Taken: on 09/01/16 Sitagliptin Phosphate (Januvia) 100 Mg Tablet, 100 MG PO ACB Last Taken: on 09/01/16 Currently on Beta Davina: Yes Beta Davina Last Taken: 09/05/16 AT 0500 Medical/Surgical History Anesthesia PMH: Reports: *Diabetes, *Hypertension, Anesthesia Reactions (n&v, non airway issues), Arthritis, CHF, Obesity, Reflux, Sleep Apnea, Thyroid Disease, Denies: *OR, Asthma, Blood Transfusion Reac, COPD, CVA/Stroke/TIA, Cancer, Clotting Problems, Glaucoma, Renal Disease, Seizures Smoking Status: Former smoker Has pt. smoked today?: No Use Chewing Tobacco?: No Substance Use Type: does not use Substance last used: unknown Alcohol Intake: none Last Drink: unknown HX of Last Menstrual Period: hyst. Past Surgical History Orthopedic Surgeries: No Abdominal Surgeries: No Genitourinary Surgeries: No Cardiac Surgeries: No Endocrine Surgeries: Yes - thyroid ductal cyst removed Reproductive Surgeries: Yes - hysterectomy, ovaries removed, c section Neurological Surgeries: No Ear Surgeries: No Nose Surgeries: No Throat Surgeries: Yes - tonsillectomy Other Surgeries: No Anesthesia Adverse Reactions: FOUND nausea and vomiting Family Hx of Anesthesia Advers: none Hx of Motion Sickness: No Pertinent Findings Laboratory Tests 09/05/16 06:36 EKG Rhythm: Atrial Fibrillation Physical Exam Respiratory: Bilat breath sounds equal, Lungs clear Cardiovascular: FOUND Irregularly irregular, FOUND No murmur Airway Assessment Mallampati Score: II TMD: 2 Fingerbreadths Neck Extension: Fair Teeth: Upper Dentures, Lower Dentures Overall Assessment: May Be Diff Mask Vent., May Be Diff Intubation ASA: 3 Plan Anesthesia Plan: GETA Discussion Discussed risks/options/alternatives of anesthesia and questions answered. Patient consents. Nursing pain assessment noted. Present: Children Attestation Statement Prior to the delivery of any anesthetic medication, I examined the patient, developed the plan, obtained the patient's consent and discussed the risk and benefits of the procedure with the patient/guardian. GLORIA GONSALEZ CRNA Sep 05, 2016 07:17
[2016-09-05] MEDS ORDERED: LIDOCAINE 2% (20mg/ml) 5ml PF SDV ONE (07:23)
[2016-09-05] MEDS ORDERED: PROPOFOL 200mg 20 ML IV ONE (07:23)
[2016-09-05] MEDS ORDERED: ROCURONIUM 50mg/5ml INJECTION IV ONE ×2 (07:23→08:30)
[2016-09-05] MEDS ORDERED: FENTANYL 250mcg/5ml INJECTION ONE (07:28)
[2016-09-05] MEDS ORDERED: ONDANSETRON 4mg/2ml INJECTION ONE (07:34)
[2016-09-05] MEDS ORDERED: GLYCOPYRROLATE 0.4mg/2ml INJECTION ONE (07:34)
--- NOTE | 2016-09-05 08:24 | HPF ---
HISTORY OF PRESENT ILLNESS This patient is 51 years old. This patient has a history of hyperthyroidism going back to at least 09/24/2014. The patient has a mass at the left lobe of the thyroid gland which has been present since at least 03/29/2015. The patient had a mass at the left lobe of the thyroid gland which was 4.5 cm x 3.1 cm x by 2.6 cm on 03/31/2015. The patient did undergo a fine-needle aspiration biopsy of this mass at the left lobe of the thyroid gland on 03/31/2015. The biopsy did show atypia of uncertain significance. The mass at the left lobe of the thyroid gland was 3.1 cm x 4.8 cm x 3.2 cm on 01/26. The patient underwent a repeat fine needle aspiration biopsy of the mass at the left lobe of the thyroid gland on 01/27/2016 and this biopsy showed an adenomatous nodule with cystic degeneration and no malignant cells. The patient did have an ultrasound of the thyroid performed at [facility] on 08/21/2016. This was ordered by Dr. Sainz. This ultrasound of the thyroid did show a large 4.5 cm x 3.8 cm x 3.2 cm mass at the left lobe of the thyroid gland. There was moderate hypervascularity of this mass. There was a moderately heterogeneous appearance of the mass. There was no significant calcification at the mass. This large mass nearly occupied the entire left thyroid lobe. The mass was hypervascular and somewhat heterogeneous. Malignancy could not be excluded by the radiologist. The patient was seen at the office by Dr. Sainz on 08/21/2016. The patient had symptomatic hyperthyroidism at this time and the patient also had atrial fibrillation with rapid ventricular rate at this time. The patient was thought to have thyrotoxicosis. The patient was admitted from the office of Dr. Sainz to [facility] by the hospitalist service on 08/21/2016. The patient was seen in consultation by Dr. Drummond who treated the atrial fibrillation and performed cardiac evaluation of the patient. The patient was seen in consultation by Dr. Lehman during this hospitalization. The patient was hospitalized from 08/21/2016 to 08/25/2016. The patient was treated with beta blockers and propylthiouracil during the hospitalization. The thyrotoxicosis was brought under control. The patient was dismissed from [facility] on 08/25/2016. The patient has been receiving propylthiouracil since discharge from the hospital. It is thought that the absence or presence of malignancy in the large left thyroid nodule cannot be determined with fine needle aspiration biopsy since this is such a large nodule. It is thought that the patient does require a left thyroid lobectomy to determine whether or not there is any malignancy present in this large nodule at the left lobe of the thyroid gland. The patient is admitted at this time to undergo left thyroid lobectomy. FAMILY HISTORY There is no family history of any thyroid cancer for this patient. PAST MEDICAL HISTORY Previous Operations: 1. section in 1986 at [place], [place]. 2. Tonsillectomy in 1991 at [place], [place]. 3. Total abdominal hysterectomy with bilateral salpingo-oophorectomy in 1991 at [place], [place]. 4. Excision of thyroglossal duct cyst between 1995 and 1997 at [employer], [place]. Other previous hospitalizations: 1. Hospitalized from 08/21/2016 to 08/25/2016 at [facility] at [place], [place]. Discharge diagnoses for this hospitalization were thyrotoxicosis, chronic thyroid nodule, atrial fibrillation with rapid ventricular rate, chronic systolic heart failure, type 2 diabetes mellitus (uncontrolled), hypertension, tobacco dependency, depression, anxiety, obstructive sleep apnea treated with BiPAP, chronic anticoagulation with Coumadin changed to Xarelto during this hospitalization and morbid obesity. Other current medical problems: 1. Atrial fibrillation. 2. Chronic systolic heart failure with a recent echocardiogram showing global hypokinesis with an ejection fraction of 40%. 3. Type 2 noninsulin-requiring diabetes mellitus. 4. Morbid obesity. 5. Obstructive sleep apnea treated with BiPAP. 6. Hypertension 7. Nicotine dependence. 8. Depression. 9. Anxiety. SOCIAL HISTORY The patient lives in [place], [place]. 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 She does smoke about one pack of cigarettes each week. The patient is but has been from her for about 5 years. CURRENT MEDICATIONS 1. [place] 5/325 mg one tablet p.o. every 4 hours p.r.n. pain. 2. Lorazepam 0.5 mg one tablet p.o. every 4 hours p.r.n. anxiety. 3. Xarelto 20 mg one tablet p.o. daily. The patient has been holding this for the last several days in preparation for this operation. 6. Wellbutrin 100 mg one tablet p.o. b.i.d. 5. Propylthiouracil 100 mg one tablet p.o. every 6 hours 6. Nitrostat 0.4 mg one sublingually p.r.n. chest pain. 7. Lisinopril 20 mg one tablet p.o. daily. 8. Januvia 100 mg one tablet p.o. daily. 9. Lasix 40 mg one tablet p.o. daily. 10. Coreg 25 mg one tablet p.o. b.i.d. 11. Amaryl 4 mg one tablet p.o. b.i.d. ALLERGY HISTORY The patient states she is allergic to doxycycline which causes a rash and hives. PHYSICAL EXAMINATION VITAL SIGNS: Blood pressure is 120/82. Pulse is 90. Respiratory rate is 18. Temperature is 97.1 degrees Fahrenheit. Height is 5 feet 5.5 inches. Weight is 275 pounds. BMI is 45.1 kg/m2. Oxygen saturation is 97% on room air. HEAD, EYES, EARS, NOSE AND THROAT: No abnormalities noted. NECK: The patient does have enlargement at the left lobe of the thyroid gland. No cervical lymphadenopathy. CHEST: Lung sounds are clear. HEART: Regular rhythm. No murmurs. BREASTS: Not examined. ABDOMEN: No abdominal masses. No abdominal tenderness. RECTUM: Exam deferred. EXTREMITIES: No abnormalities noted. IMPRESSION 1. Large mass at left lobe of thyroid gland. 2. Atrial fibrillation. 3. Chronic systolic heart failure. 4. Type 2 noninsulin-requiring diabetes mellitus. 5. Morbid obesity. 6. Obstructive sleep apnea. 7. Hypertension. 8. Nicotine dependence. 9. Depression. 10. Anxiety. PLAN Left thyroid lobectomy. PATIENT EDUCATION I have informed the patient of the nature of the left thyroid lobectomy operation. Expected benefits have been reviewed. Alternatives have been reviewed. Potential risks and complications have been reviewed with the patient. Anesthetic risk has been discussed with the patient. Risks of bleeding, infection, poor wound healing, injury to recurrent laryngeal nerves and hypoparathyroidism have all been discussed with the patient. The patient does appear understand all this. She does wish to proceed with the operation. [facility]ATRIC CENTERAmy
[2016-09-05] MEDS ORDERED: DESFLURANE 240 ML LIQUID IH ONE (08:45)
[2016-09-05] MEDS ORDERED: FENTANYL 100mcg/2ml INJECTION ONE ×2 (08:51→10:02)
[2016-09-05] MEDS ORDERED: SUGAMMADEX 200 MG/2 ML INJECTION IV ONE (10:49)
--- NOTE | 2016-09-05 11:11 | GSPOSTPROC ---
Immediate Operative Note DATE: 09/05/16 TIME: 11:10 Postop Diagnosis: left thyroid mass Surgical Procedure: Other (left thyroid lobectomy) Surgeon: Chuckie ASA: 3 USHA BASSETT MD Sep 05, 2016 11:11
[2016-09-05] MEDS: LR 1,000 ML IV SCH ×2 (11:12→16:24)
[2016-09-05] MEDS ORDERED: PROMETHAZINE 25 MG INJECTION IV PRN (11:15)
[2016-09-05] MEDS ORDERED: MORPHINE SULFATE 10 MG SYRINGE IV PRN (11:15)
[2016-09-05] MEDS ORDERED: ACETAMINOPHEN 500 MG TABLET PO PRN (11:15)
[2016-09-05] MEDS ORDERED: IBUPROFEN 200 MG TABLET PO PRN (11:15)
[2016-09-05] MEDS ORDERED: NITROGLYCERIN 0.4 MG SUBLINGUAL TABLET SL PRN (11:30)
[2016-09-05] MEDS ORDERED: LORAZEPAM 0.5 MG TABLET PO PRN (11:30)
[2016-09-05] MEDS: HYDROMORPHONE 2mg/ml INJECTION IV PRN ×2 (11:31→11:41)
--- NOTE | 2016-09-05 12:05 | ANESPO ---
Post-Op Note Date 09/05/16 Time: 12:05 Status Pt Participated in Evaluation: Pt participated in person Vital Signs Date Time Temp Pulse Resp B/P Pulse Ox O2 Delivery O2 Flow Rate FiO2 09/05/16 12:00 98 18 118/81 91 Room Air 09/05/16 11:50 2.00 09/05/16 11:14 98.3 Respiratory Function: Airway patent, Regular respirations Mental Status: Alert/oriented Pain Level Intensity: 1 Hydration: IV infusing Complications during Recovery None apparent Follow-Up Instructions Instructions Per Surgeon DILEEP KINGSTON CRNA Sep 05, 2016 12:05
--- NOTE | 2016-09-05 12:05 | NUR ---
ADMISSION PATIENT ADMITTED TO ROOM 107 AT THIS TIME VIA CART AND PACU STAFF. PATIENT ABLE TO TRANSFER SELF OVER TO SURGICAL UNIT BED. A/OX3 BUT DROWSY. RATING PAIN AT A 1/10 CURRENTLY. DENIES N/V, CHEST PAIN, AND SOA. DRESSING ON NECK CLEAN, DRY, INTACT. BED IN THE LOWEST POSITION, CALL LIGHT WITHIN REACH, SIDE RAILS UPX2, AND BED ALARM ON. WILL CONTINUE TO MONITOR.
[2016-09-05] MEDS: PROPYLTHIOURACIL 50 MG TABLET PO SCH ×3 (12:30→22:16)
--- NOTE | 2016-09-05 15:03 | OPNOTEF ---
DATE OF OPERATION 09/05/2016 PREOPERATIVE DIAGNOSIS Mass at left lobe of thyroid gland. POSTOPERATIVE DIAGNOSIS Mass at left lobe of thyroid gland. OPERATION Left thyroid lobectomy and isthmusectomy. SURGEON Drake Noguera MD METAL TESTER Hal Phan MD ANESTHESIA General ASA CLASS 3 FINDINGS This patient did have a large mass at the left lobe of the thyroid gland. The thyroid isthmus appeared normal. The right lobe of thyroid gland was not examined. DESCRIPTION OF OPERATION The patient was placed in supine position on the operating table. General anesthesia was satisfactorily induced. The operating table was placed in reverse Trendelenburg position. A towel was placed under the shoulders so that there was extension of the neck. The anterior and lateral surfaces of the neck were prepped and draped in routine sterile fashion. A transversely oriented incision was made at the anterior surface of the neck. The incision was made at a level two fingerbreadths superior to the suprasternal notch, one fingerbreadth superior to the clavicles and one fingerbreadth inferior to the level of the cricoid cartilage. The incision was extended down through the skin and subcutaneous tissue, platysma muscle and platysma fascial layers. The platysma muscle and fascial layers were grasped and elevated with Allis clamps. The avascular areolar tissue plane beneath the platysma muscle and fascia overlying the strap muscles was incised as the platysma muscle and fascia, subcutaneous tissue and skin were raised as subplatysmal flaps superiorly and inferiorly. The Gelpi retractors were placed to hold apart the flaps. A vertically oriented incision was made through the cervical fascia to separate strap muscles laterally from one another. The sternohyoid and sternothyroid muscles on the left side were elevated and retracted laterally as a cleavage plane was developed through the loose fascia between the thyroid gland and strap muscles. Left sided strap muscles were retracted with [place] retractors. A plane was developed between the left lobe of the thyroid gland and the surrounding structures at the lateral margin of the left lobe of the thyroid gland. The left lobe of the thyroid gland was rotated anteriorly and medially. The middle thyroid vein was identified. The middle thyroid vein was divided with the Harmonic Focus ultrasonically activated coagulating gage. The left lobe of the thyroid gland was rotated further anteriorly and medially. Attention was directed to the superior pole of the left lobe of the thyroid gland. The superior thyroid artery and vein were dissected out and identified. A space was opened between the cricothyroid muscle and the superior pole of the left lobe of the thyroid gland. This did bring the superior thyroid blood vessels out laterally and away from the external branch of the left superior laryngeal nerve. The superior thyroid artery was ligated with two ligatures of 3-0 Vicryl suture. The superior thyroid artery was divided between the ligatures and the thyroid gland with the Harmonic Focus ultrasonically activated coagulating gage. The superior thyroid vein was ligated with a couple of 3-0 Vicryl ligatures. The superior thyroid vein was divided between these two ligatures and the thyroid gland with the Harmonic Focus ultrasonically activated coagulating gage. Some additional loose areolar tissue around the superior pole of the left lobe of thyroid gland was divided with the Harmonic Focus ultrasonically activated coagulating gage at a level adjacent to the capsule of the thyroid gland. The left lobe of thyroid gland was able to be rotated further anteriorly and medially during this time. Some terminal branches of the inferior thyroid artery were divided with the Harmonic Focus ultrasonically activated coagulating gage. The left lobe of the thyroid gland was rotated further anteriorly and medially. The left superior parathyroid gland was identified and preserved from injury as all this was being done. Additional terminal branches of the inferior thyroid artery were divided with the Harmonic Focus ultrasonically activated coagulating gage at a level adjacent to the capsular surface of the thyroid gland. The left lobe of the thyroid gland was dissected further off of the trachea with the Harmonic Focus ultrasonically activated coagulating gage. The inferior pole of the left lobe of the thyroid was dissected free of surrounding fatty tissue which was thought to contain the left inferior parathyroid gland. The inferior thyroid vein was divided with the Harmonic Focus ultrasonically activated coagulating gage. All fatty tissue adjacent to the inferior pole of the left lobe of the thyroid gland was dissected free of the inferior pole of the left lobe of the thyroid gland. The left lobe of the thyroid gland was dissected further off of the trachea. The thyroid isthmus was dissected free of the trachea. The junction of the thyroid isthmus and the right lobe of thyroid gland was identified. The thyroid isthmus was divided at the junction of the thyroid isthmus and the right lobe of thyroid gland using the Harmonic Focus ultrasonically activated coagulating gage. The left lobe of the thyroid gland and thyroid isthmus were then submitted as a specimen for study by the pathologist. Irrigation was performed throughout the wound. The left recurrent laryngeal nerve was then dissected out and identified. This was at the superior end of the left recurrent laryngeal nerve near Cespedes's ligament. Additional irrigation was performed at the wound. Hemostasis was completed throughout the wound. The wound was then closed. The strap muscles were reapproximated at the midline with a single [id number] stitch using 3-0 Vicryl suture. Gelpi retractors were removed. The platysma muscle and fascia layer was reapproximated with a continuous simple over-and- over stitch using 3-0 Vicryl suture. Skin margins at the incision were reapproximated with a continuous subcuticular stitch using 4-0 Vicryl suture. Benzoin and 1/2-inch wide Steri-Strips were applied to the incision. No drains were used. Sterile dressings were applied. Sponge, needle and instrument counts were all correct. The patient did appear to tolerate the operation well. The patient was transferred from the operating room to the recovery room in satisfactory condition. VALENTÍN
[2016-09-05] MEDS: OXYCODONE I.R. 5 MG TABLET PO PRN (16:24)
[2016-09-05] MEDS: CARVEDILOL 25 MG TABLET PO SCH (17:20)
[2016-09-05] MEDS: INSULIN LISPRO 100 UNIT/ML SQ PRN ×2 (17:21→22:16)
--- NOTE | 2016-09-05 18:22 | NUR ---
END OF SHIFT REPORT PATIENT A/OX3. ROOM AIR. AFEBRILE. VITAL SIGNS STABLE. PAIN HAS BEEN CONTROLLED WITH ONE PRN OXYCODONE. PAIN IS NOW RATED A 4/10. DENIES N/V, CHEST PAIN, AND SOA. DRESSING ON NECK CLEAN, DRY, INTACT. PATIENT HAS NOT HAD MUCH OF AN APPETITE TODAY. FEW BITES/SIPS OF DRINKS TAKEN. PT UP WITH ASSIST X1. ADEQUATE URINARY OUTPUT. PATIENT HAS MET SURGICAL OUTPATIENT CRITERIA. PATIENT TO BE NPO AT MIDNIGHT FOR POSSIBLE SURGERY TOMORROW. WILL CONTINUE TO MONITOR.
[2016-09-05] MEDS: ONDANSETRON 4mg/2ml INJECTION IV PRN (20:26)
--- NOTE | 2016-09-05 20:27 | NUR ---
NAUSEA/MOTION SICKNESS GAVE 4MG IV ZOFRAN. PT HAD APPLESAUCE.
[2016-09-05] MEDS: BuPROPion SR (12 HR) 100 MG TABLET PO SCH (22:15)
[2016-09-06] MEDS: LR 1,000 ML IV SCH ×2 (03:05→13:52)
[2016-09-06 04:14] VITALS: BP 116/76; PULSE 75; RESP 20; TEMP 96.4; O2SAT 93
[2016-09-06] MEDS: PROPYLTHIOURACIL 50 MG TABLET PO SCH ×2 (06:14→11:42)
[2016-09-06 07:26] VITALS: BP 122/76; PULSE 81; RESP 26; TEMP 96.3; O2SAT 94
--- NOTE | 2016-09-06 07:29 | NUR ---
SHIFT SUMMARY PATIENT HAS BEEN ALERT AND ORIENTED THIS SHIFT. VITALS HAVE BEEN STABLE ON ROOM AIR. PATIENT HAS REPORTED SEVERE PAIN, BUT HAS REFUSED ANY PAIN MEDICATIONS THIS SHIFT. PATIENT DENIED N/V AFTER ZOFRAN AT 2030. OTHERWISE, PATIENT SLEPT THROUGH THE NIGHT. PATIENT AMBULATED IN THE ROOM WITH ASSIST X1 AND HAD A BAG BATH THIS AM. WILL CONTINUE TO MONITOR.
[2016-09-06 08:30] VITALS: PULSE 81; RESP 20
[2016-09-06] MEDS: BuPROPion SR (12 HR) 100 MG TABLET PO SCH (08:42)
[2016-09-06] MEDS: CARVEDILOL 25 MG TABLET PO SCH (08:43)
[2016-09-06] MEDS ORDERED: DIGOXIN 125 MCG TABLET PO SCH (09:00)
[2016-09-06] MEDS ORDERED: LISINOPRIL 20 MG TABLET PO SCH (09:00)
[2016-09-06] MEDS ORDERED: FUROSEMIDE 40 MG TABLET PO SCH (09:00)
--- NOTE | 2016-09-06 10:05 | NUR ---
CM THIS CM IN TO VISIT WITH PATIENT. FAMILY AT BEDSIDE WITH PATIENT. CM CONTACT INFORMATION GIVEN. SHE DENIES ANY NEEDS AT HOME. Addendum: 09/06/16 at 1007 by MICHAEL BERNABE RN Amended: Links added.
[2016-09-06 12:06] VITALS: BP_SYST 105; BP_SYST 94; BP_DIAS 58; PULSE 71; RESP 18; TEMP 97.7; O2SAT 95
[2016-09-06] MEDS: OXYCODONE I.R. 5 MG TABLET PO PRN (13:49)
[2016-09-06] MEDS: ONDANSETRON 4mg/2ml INJECTION IV PRN (15:11)
--- NOTE | 2016-09-06 15:11 | NUR ---
Nausea Pt reported slight nausea. Pt wanted to eat a cracker and asked for nausea medication. 4mg PRN Zofran IV given at this time.
[2016-09-06 15:56] VITALS: BP 109/66; PULSE 69; RESP 18; TEMP 96.2; O2SAT 97
[2016-09-06] MEDS ORDERED: OXYC5TAB84 PO (17:20)
--- NOTE | 2016-09-06 17:35 | NUR ---
DISMISSAL DISCHARGE INSTRUCTIONS, MEDICATIONS, AND EDUCATION ON PARTIAL THYROIDECTOMY GIVEN AND DISCUSSED WITH PATIENT AND PATIENT'S FAMILY. DISCUSSED S/S OF INFECTION. ALL QUESTIONS AND CONCERNS ANSWERED AT THIS TIME. IVL D/C, CATHETER TIP INTACT. WRITTEN PRESCRIPTION FOR OXYCODONE 5MG, ONE TABLET BY MOUTH EVERY 4 HOURS PRN PAIN (DISP:20, NO REFILLS). PATIENT DISMISSED VIA WHEELCHAIR TO ER ENTRANCE WITH ORC STAFF AND DISCHARGE WITH FAMILY PER PRIVATE OWN VEHICLE.
--- NOTE | 2016-09-07 07:32 | PNF ---
DATE 09/06/2016 POSTOP DAY #1 HISTORY The patient is doing well. She is eating well. She has good pain control with oral analgesics. PHYSICAL EXAMINATION VITAL SIGNS: Temperature is 97.7 degrees oral. Pulse is 71. Respiratory rate is 18. Blood pressure is 105/58. Oxygen saturation is 95% on room air. HEAD, EYES, EARS, NOSE AND THROAT: The voice of the patient is normal. NECK: The incision at the anterior neck looks good. No sign of any wound healing problems. IMPRESSION Doing well following left thyroid lobectomy on 09/05/2016. PATHOLOGY REPORT I did receive a telephone call from Dr. Juanita Watson. The slides from the thyroid are going to be sent to the [facility] for a second opinion. Final path report is still pending and will depend on results of the second opinion from the [facility]. PLAN 1. Dismiss patient from [facility] today and await final pathology report on the left thyroid lobe and isthmus. DISCHARGE MEDICATIONS 1. Resume discharge medications which the patient was taking prior to admission to the hospital except for holding Xarelto for a couple more days before resuming it. 2. I did give the patient a prescription for oxycodone 5 mg one tablet p.o. every 4 hours p.r.n. pain (dispense 20 - no refills). MTDD
== END 2016-09-06 17:35 | disposition home or self-care (01) ==
LOC: SCU 05:54 → SRG 05:54 → SCU 09-06 17:35
PROVIDERS: ATTEND Surgery
DX: C73 Malignant neoplasm of thyroid gland (principal)
CPT/HCPCS: 80048; 82948; 99406